=== PATIENT | male | born 1955 | race Caucasian/White ===

== ENCOUNTER → 2017-11-22 05:50 | Outpatient (CLI) | payer BC, SELFPAY ==
--- NOTE | 2017-11-22 05:56 | NM_ITS ---
SPECT MYOCARDIAL PERFUSION SCAN, REST AND STRESS: EXERCISE STRESS: [facility] REVIEW QGS EF AND WALL MOTION EVALUATION: QPS - PERFUSION EVALUATION: HISTORY: Chest pain, SOB, Fatigue, CAD, HTN, DM PROCEDURE: Rest imaging performed after administration of10.79 millicuries Tc MIBI. Dose administered at6:10 a.m., with imaging thereafter. Stress imaging was then performed [id number] minutes 02 seconds of exercise stress. The patient achieved a heart [id number] with projected heart rate of136 . Resting BP158/84 with stress 190/80. At maximum exercise stress,32.2 millicuries Tc MIBI administered at8:00 a.m. with [id number] minutes thereafter. EKG revealed 1.5 mm of horizontal to downsloping depression making this an abnormal EKG stress test FINDINGS: Perfusion Evaluation: The single slice spect images as well as the [facility] bull's-eye data summary were reviewed. Wall Motion and Ejection Fraction Evaluation: Gated SPECT review and analysis used to evaluate these features. There is a 66 % left ventricular ejection fraction. There seems to be good wall motion SPECT images reveal mildly decreased activity in the inferior wall and portion of the lateral wall while the rest images reveal worsening uptake in the inferior lateral wall. Gated images calculated ejection fraction of 66% with normal wall motion IMPRESSION: High risk abnormal stress test with reverse redistribution in the inferior lateral wall associated with normal wall motion and normal ejection fraction
--- NOTE | 2017-11-22 07:50 | CA_ITS ---
PROCEDURE: 2-D M-mode and color Doppler study INDICATIONS FOR THE TEST: Chest pain COPD Heart Murmur Tobacco Smoking Palpitations Fatigue Syncope Edema HypertensionXDiabetes MellitusX Rheumatic Fever SOBXDOE ObesityXHyperlipidemiaX Family History HD Additional History CAD PATIENT INFORMATION HEIGHT: 72 WEIGHT:245 GENDER: Male B/P:158/84 2-D/M-MODE INTERPRETATION: 2-D MEASUREMENTS OBSERVED VALUES IN CMS Right Ventricular Dimension (RVDd) 2.5 Interventricular Septum (Thickness)(IVsd) 1.0 Left Ventricular Internal Dimensions(LVIDd) 5.8 Left Ventricular Posterior Wall (Thickness)(LVPWd) 1.1 Aortic Root 3.4 Aortic Cusp Separation 1.9 Left Atrial Dimensions (LAD) 4.0 2D 1. Left atrium is mildly enlarged, left ventricle is normal size, there is mild concentric left ventricular hypertrophy, visually estimated ejection fraction 55% with no obvious regional wall motion abnormality. 2. The right atrium and right ventricle are mildly enlarged with normal contractility. 3. The aortic valve is minimally thickened and fibrosed. 4. The mitral and tricuspid valve leaflets are minimally thickened. 5. The pulmonic valve is poorly visualized 6. No significant pericardial effusion noted. DOPPLER INTERROGATION: Doppler interrogation of the aortic, mitral and tricuspid valvular presence of mild mitral and tricuspid regurgitation, tricuspid and jet velocity insufficient for calculation of the right ventricular systolic pressure, grade 1 diastolic dysfunction seen without tissue Doppler evidence of raised left atrial pressure. CONCLUSION: 1. Mildly enlarged left atrium, normal left ventricular size, mild concentric left ventricular hypertrophy, visually estimated ejection fraction 55% with no obvious regional wall motion abnormality, grade 1 diastolic dysfunction seen without tissue Doppler evidence of raised left atrial pressure. 2. Mild mitral and tricuspid regurgitation 3. No significant pericardial effusion noted.
--- NOTE | 2017-11-22 09:10 | HMH.ITSHM ---
bisoprolol metformn simvastatin glyberide effient a,lodipine lozartan asa
== END ==
PROVIDERS: PCP Internal Medicine; Visit Provider Internal Medicine Cardiovascular Disease
DX: Z95.5 Presence of coronary angioplasty implant and graft (principal); I25.10 Atherosclerotic heart disease of native coronary artery without angina pectoris; R06.09 Other forms of dyspnea; E78.4 Other hyperlipidemia; E11.9 Type 2 diabetes mellitus without complications; I10 Essential (primary) hypertension
CPT/HCPCS: 78452; 93017; 93306; A9502

== ENCOUNTER 2017-12-07 07:44 | Day surgery (SDC) | payer BC, SELFPAY ==
[2017-12-07] VITALS (14 sets, daily range): BP systolic 135–186; BP diastolic 70–101; PULSE 54–72; RESP 16–18; TEMP 36.7; O2SAT 95–97; BMI 34.7
--- NOTE | 2017-12-07 | IR_ITS ---
CARDIAC CATHETERIZATION DATE OF CATHETERIZATION:12/07/2017 9:12 AM PROCEDURES: 1. Left heart catheterization 2. Left ventriculogram 3. Selective coronary angiogram 4. Drug-eluting stent deployment to the circumflex artery extending into the left main artery 5. Drug-eluting stent deployment to the ostial LAD extending back into the left main artery INDICATION FOR TEST: 1. Angina pectoris class III despite 2 antianginal medications 2. Coronary artery disease Informed consent was obtained prior to the procedure. COMPLICATIONS: None ESTIMATED BLOOD LOSS: Less than 10 ml. TECHNIQUE: One percent lidocaine used to anesthetize the right anterior aspect of the wrist. The right radial artery was accessed via the Seldinger technique. A 6 Polish sheath was placed in the right radial artery. 2.5 mg of verapamil, 800 mcg of nitroglycerin and 5000 U Heparin were given through the arterial sheath. The trap catheter was also used to perform left heart catheterization left ventriculogram and selective coronary angiogram. At the end of the diagnostic angiogram and additional 7000 units of heparin was administered intravenously giving an ACT of 307 seconds. An Cuffed and Wanted left guide catheter was used intubate the left main artery and a choice PT wire was placed in the circumflex artery. A 3.5 x 18 mm resolute [place] stent was deployed at 20 gricel reducing the ostial stenosis to 0%. The choice PT wire was gently pulled back and placed into the LAD where a 3 mm x 12 mm balloon was used to open the struts going into the LAD. Following this a 4 mm x 18 mm resolute Alvin stent was placed in the proximal left main artery extending into the ostial proximal LAD and deployed at 20 gricel. The proximal LAD had a dissection at the edge of the stent therefore a 3.5 x 12 mm resolute Alvin stent was placed distal to the first LAD stent and deployed at 20 gricel. The balloon was brought back and mesh to 26 gricel. Excellent angiographic results were obtained with BROWN-3 flow down the LAD and circumflex artery before and after the procedure. A fresh BMW wire was in placed into the circumflex artery where 3.5 x 6 mm balloon was used to post dilate the ostium at 20 gricel. After achieving an angiographic results the apparatus was removed the sheath was removed good hemostasis was achieved using TR banding patient was transferred to the postop holding area in stable condition. Patient artery taken his Effient the morning of the procedure. ANGIOGRAPHIC RESULTS: 1. The left main artery has a distal hazy 30% stenosis 2. The left anterior descending artery has an ostial 20-30% hazy stenosis with mild 10% mid vessel stenoses 3. The circumflex artery is a dominant vessel and has an ostial concentric 80-90% stenosis. The stent in between the first and second obtuse marginal artery is widely patent with excellent proximal and distal transitioning. 4. The right coronary artery is nondominant yet still large and normal 5. The BLEVINS ventriculogram reveals normal ejection fraction 65% 6. The left ventricular end-diastolic pressure 15 mmHg IMPRESSION: 1. Severe ostial dominant circumflex artery disease which extended back into the left main artery 2. Successful reconstruction of the distal left main artery 1 stent extending from the left main artery into the circumflex artery with an additional stent extending from the proximal left main into the proximal LAD. 3. Normal ejection fraction 4. Mildly elevated LVEDP PLAN: 1. Effient 10 mg a day plus aspirin 81 mg a day for least one year 2. LDL less than 55 3. Cardiac rehabilitation 4. Risk factor modification 5. Avoidance of tobacco products
[2017-12-07 08:22] LABS: Eosinophils % 0.4 % (0.1-12.0); Hematocrit 40.3 % (42.0-52.0); Hemoglobin 13.4 g/dL (14.1-18.0); Lymphocytes # 1.7 K/mm3 (0.7-4.5); Lymphocytes % 27.2 K/mm3 (10-50); Mean Corpuscular HGB Conc 33.2 g/dL (31.8-35.4); Mean Corpuscular Hemoglobin 30.5 pg (27.0-31.2); Mean Platelet Volume 7.8 fl (7.4-10.4); Monocytes # 0.6 K/mm3 (0.1-1.0); Neutrophils # 3.9 K/mm3 (1.8-7.8); Neutrophils % 63.4 % (37.0-80.0); Platelet Count 178 K/mm3 (142-424); Red Blood Count 4.38 M/mm3 (4.60-6.20); Red Cell Distribution Width 13.4 % (11.5-17.5); White Blood Count 6.2 K/mm3 (4.8-10.8)
[2017-12-07 08:28] LABS: Anion Gap 11.2 mEq/L (5-15); Blood Urea Nitrogen 20 mg/dL (7-18); Carbon Dioxide 29 mmol/L (21.0-32.0); Chloride 104 mmol/L (98-107); Creatinine Clearance Estimated 107 mL/min (0-300); Creatinine,Serum 1.21 mg/dL (0.70-1.30); Estimated Glomerular Filt Rate 61 ml/min (>60); GFR (African American) 74 ML/MIN (>60); Glucose 183 mg/dL (74-106); Potassium 4.2 mmoL/L (3.5-5.1); Sodium 140 mmol/L (136-145)
[2017-12-07 13:45] LABS: CATHL Activated Clotting Time 309 SEC (74-125)
[2017-12-07 13:45] LABS: CATHL Activated Clotting Time 258 SEC (74-125)
== END 2017-12-07 14:17 | disposition home or self-care (01) ==
LOC: CATHLAB 07:49
PROVIDERS: PCP Family Medicine; Visit Provider Internal Medicine
DX: I25.110 Atherosclerotic heart disease of native coronary artery with unstable angina pectoris (principal); Z95.5 Presence of coronary angioplasty implant and graft; I10 Essential (primary) hypertension; E11.9 Type 2 diabetes mellitus without complications; R94.39 Abnormal result of other cardiovascular function study; E78.5 Hyperlipidemia, unspecified
CPT/HCPCS: 80048; 85025; 85347; 92928; 93458; 99152; 99153; C1725; C1760; C1769; C1876; C9600; J1644; Q9967

== ENCOUNTER → 2017-12-13 10:46 | Outpatient (CLI) | payer BC, SELFPAY ==
[2017-12-13 11:20] LABS: Anion Gap 12.8 mEq/L (5-15); Blood Urea Nitrogen 20 mg/dL (7-18); Carbon Dioxide 28 mmol/L (21.0-32.0); Chloride 105 mmol/L (98-107); Creatinine,Serum 1.22 mg/dL (0.70-1.30); Estimated Glomerular Filt Rate 61 ml/min (>60); GFR (African American) 73 ML/MIN (>60); Glucose 200 mg/dL (74-106); Potassium 4.8 mmoL/L (3.5-5.1); Sodium 141 mmol/L (136-145)
== END ==
PROVIDERS: PCP Family Medicine; Visit Provider Internal Medicine Cardiovascular Disease
DX: I25.10 Atherosclerotic heart disease of native coronary artery without angina pectoris (principal); I10 Essential (primary) hypertension
CPT/HCPCS: 36415; 80048; 83880

== ENCOUNTER 2017-12-20 07:55 | Outpatient (RCR) | payer BC, SELFPAY | END 2018-02-21 15:01 | disposition home or self-care (01) | LOC: PT 07:55 | PROVIDERS: PCP Family Medicine; Visit Provider Internal Medicine | DX: Z95.5 Presence of coronary angioplasty implant and graft (principal) | CPT/HCPCS: 93798 ==

== ENCOUNTER → 2018-02-07 06:39 | Outpatient (CLI) | payer BC, SELFPAY ==
--- NOTE | 2018-02-07 06:41 | NM_ITS ---
History and Indications: Coronary artery disease, hypertension, diabetes, hyperlipidemia, family history, chest pain, shortness of breath and fatigue. Procedure: Patient received a 0.4 mg of Lexiscan, resting heart rate was 56 bpm, resting blood pressure 132/70, with Lexiscan maximum heart rate achieved was 76 bpm which is less than 85% of the maximum predicted heart rate and a blood pressure was 138/83. With Lexiscan patient complained of chest discomfort. Electrocardiogram: Resting electrocardiogram showed sinus bradycardia, with Lexiscan there is less than 1.[address] segment depression noted from the baseline EKG. The EKG portion of the Lexiscan Myoview is nondiagnostic. Cardiac stress and resting SPECT images: Cardiac stress and rest SPECT images were obtained using technetium 99 Myoview 30.9 mCi at stress 10.5 at rest, gated SPECT further analysis of segmental wall motion and calculation of the ejection fraction also done. Cardiac stress and rest SPECT images show decreased activity in the inferior wall, which improves on the resting images suggestive of reversible computer derived ejection fraction is 61% with no obvious regional wall motion abnormality, right ventricle is normal size and contractility. Conclusion: 1. The EKG portion of the Lexiscan Myoview is nondiagnostic. 2. Scintigraphic evidence of mild reversible ischemia involving the inferior wall, either derived ejection fraction is 61% with no obvious regional wall motion abnormality, right ventricle is normal size and contractility. 3. Abnormal Lexiscan Myoview study.
--- NOTE | 2018-02-07 09:42 | HMH.ITSHM ---
BISOPRELOL METFORMIN ASA ANLODIPINE SIMCASTATIN GLBERIDE LOZARTIN PANTOPRAZOLE
== END ==
PROVIDERS: PCP Family Medicine; Visit Provider Internal Medicine
DX: R06.00 Dyspnea, unspecified (principal); I25.10 Atherosclerotic heart disease of native coronary artery without angina pectoris; I10 Essential (primary) hypertension; E78.4 Other hyperlipidemia; E11.9 Type 2 diabetes mellitus without complications; I20.9 Angina pectoris, unspecified; G47.33 Obstructive sleep apnea (adult) (pediatric); Z95.5 Presence of coronary angioplasty implant and graft
CPT/HCPCS: 78452; 93017; A9502; J2785

== ENCOUNTER → 2019-11-06 07:02 | Outpatient (CLI) | payer BC, SELFPAY ==
--- NOTE | 2019-11-06 07:02 | NM_ITS ---
APPROVED REPORT Exam: Nuclear Stress Test Indication: chest pain..short of breath..fatique Patient Location: Outpatient Stress Tech: Lili Bailey LYNDSEY Tech:DARCY Chen RT(R)(N) Ht: 6 ft 0 in Wt: 230 lbs Bra Size: implants HR: 61 bpm BP: 126/74 mmHg BSA: 2.26 m2 History: chest pain..short of breath..fatique Procedure: Patient received a 0.4 mg of intravenous Lexiscan, resting heart rate 61 bpm, resting blood pressure 126/74 mmHg, with Lexiscan maximum heart rate achived was 75 bpm which is Less than 85 % of the maximum predicted heart rate and blood pressure was 128/72 mmHg. With Lexiscan, patient denied any complaint of chest pain. Electrocardiogram Resting electrocardiogram showed sinus rhythm, with Lexiscan there is less than 1.[address] segment depression noted from the baseline EKG. The EKG portion of the Lexiscan Myoview is nondiagnostic. Cardiac Stress and Resting SPECT Images: Cardiac Stress and Resting SPECT images were obtained using technetium 99m Myoview 32.2 mCi stress and 10.72 mCi at rest. Gated SPECT for analysis of segmental wall motion and calculation of the ejection fraction also done. Cardiac stress and resting SPECT images show decreased tracer activity in the inferior wall which improves on the resting images suggestive of reversible ischemia, computer derived ejection fraction is 51% with mild inferior wall hypokinesis. Right ventricle is mildly enlarged with normal contractility. Conclusion: 1. The EKG portion of the Lexiscan Myoview is nondiagnostic. 2. Scintigraphic evidence of mild reversible ischemia involving the inferior wall, computer derived ejection fraction 51% with segmental wall motion abnormality described above, right ventricle is mildly enlarged with normal contractility. 3. Abnormal Lexiscan Myoview study. Electronically signed by : Bladimir Leslie, 11/06/2019 15:39:25
--- NOTE | 2019-11-06 09:43 | CA_ITS ---
APPROVED REPORT Exam: Pharmacologic Technologist: Lili Bailey, Ht: 6 ft 0 in Wt: 230 lbs BSA: 2.26 m2 HR: 61 bpm BP: 126/74 mmHg Rhythm: RBBB Medical History Medical History: Diabetes, Hyperlipidemia, HTN Medications: Amlodipine,,,,, Aspirin,,,,, Metformin,,,,, Losartan,,,,, Hydrochlorothiazide,,,,, Pantoprazole,,,,, Nitro,,,,, Prasugrel,,,,, BisOPROL,,,,, Simvasatin,,,,, Allergies: PNC, Shellfish Cardiac Risk Factors: FHX of CAD, Hyperlipidemia, HTN, Diabetes (non-insulin) Stress Test Details Test: LEXISCAN HR Resting HR: 59 bpm Max Heart Rate (APMHR): 158 bpm Max HR Achieved: 86 bpm Target HR (85% APMHR): 134 bpm % of APMHR: 54 Recovery HR: 75 bpm BP Resting BP: 126/74 mmHg Max BP: 145/68 mmHg Recovery BP: 124.0/74.0 mmHg ECG Clinical Exercise duration: 05:00 min Highest Stage Achieved: Exercise capacity: 1.0 METs Stress ECG Conclusion Nausea, malaise, headache, no CP / no arrhythmias / no significant ST-T changes / unremarkable lexiscan stress / MyoView images reported seperately Electronically signed by : Bladimir Leslie, 11/06/2019 15:36:10
--- NOTE | 2019-11-06 11:10 | HMH.ITSHM ---
Current Home Medications as stated by this patient Dougie Caballero or textile designs sales representative. [] simvastatatin pantoprazole metformin losartan isosorbide bisoprolol asp amlodipine
== END ==
PROVIDERS: PCP Family Medicine; Visit Provider Urology
DX: I20.9 Angina pectoris, unspecified (principal); I50.30 Unspecified diastolic (congestive) heart failure; E78.5 Hyperlipidemia, unspecified; I10 Essential (primary) hypertension; Z95.5 Presence of coronary angioplasty implant and graft
CPT/HCPCS: 78452; 93017; A9502; J2785

== ENCOUNTER → 2020-02-18 14:49 | Outpatient (POV) | payer BC, SELFPAY | PROVIDERS: PCP Family Medicine | DX: Z00.00 Encounter for general adult medical examination without abnormal findings (principal) ==

== ENCOUNTER → 2020-03-16 10:22 | Outpatient (CLI) | payer BC, SELFPAY ==
[2020-03-16 11:26] LABS: Coronavirus 19 IgG Antibody Negative (Negative); Coronavirus 19 IgM Antibody Negative (Negative)
== END ==
DX: Z01.84 Encounter for antibody response examination (principal)
CPT/HCPCS: 36415; 86328

== ENCOUNTER 2020-03-17 11:35 | Day surgery (SDC) | payer BC, SELFPAY ==
[2020-03-15 13:55] VITALS: BMI 31.1
[2020-03-17 12:08] VITALS: BP 130/62; PULSE 62; RESP 18; TEMP 36.7; O2SAT 97
[2020-03-17 12:27] LABS: POC Glucose,Bedside 110 (70-110)
[2020-03-17 16:10] VITALS: BP 141/72; PULSE 59; RESP 18; TEMP 36.5; O2SAT 97
== END 2020-03-17 16:30 | disposition home or self-care (01) ==
LOC: OR 11:36
PROVIDERS: PCP Family Medicine
PROC: (CPT 67800; principal; 2020-03-17 13:00)
DX: H00.14 Chalazion left upper eyelid (principal); I10 Essential (primary) hypertension; E78.5 Hyperlipidemia, unspecified; E11.9 Type 2 diabetes mellitus without complications; Z95.818 Presence of other cardiac implants and grafts; Z79.82 Long term (current) use of aspirin; Z79.899 Other long term (current) drug therapy; Z82.49 Family history of ischemic heart disease and other diseases of the circulatory system; Z83.3 Family history of diabetes mellitus; Z88.0 Allergy status to penicillin; Z91.013 Allergy to seafood
CPT/HCPCS: 67800; 82962

== ENCOUNTER → 2020-05-06 10:03 | Outpatient (CLI) | payer BC, SELFPAY ==
--- NOTE | 2020-05-06 10:05 | CA_ITS ---
APPROVED REPORT EXAM: Comprehensive 2D, Doppler, and color-flow Echocardiogram Preparer Samples And Repairs: Gita Taylor RDCS Ht: 6 ft 0 in Wt: 117lbs BSA: 1.70 BP: 125/70 mmHg Indications: CAD,SOA,DM,HTN,HLP 2D Dimensions LVOT 1.91 cm (M/F) 1.5-2.5 M-Mode Dimensions RVDd 2.42 cm (0.9-2.6) LVDd 4.79 cm (3.5-5.7) LVDs 3.69 cm (3.5-5.7) IVSd 1.40 cm (0.6-1.1) PWd 1.06 cm (0.6-1.1) EF (Teich) 46.00% FS 23.00% EDV (Teich) 107.00 mL ESV (Teich) 57.80 mL LV Diastology E/A Ratio 0.72 Mitral Valve MV A Velocity 74.00 (40-130 cm/s) Left Ventricle Left atrium is mildly enlarged, left ventricle is normal size, mild concentric left ventricular hypertrophy, visually estimated ejection fraction 55% with no regional wall motion abnormality, grade 1 diastolic dysfunction seen without tissue Doppler evidence of raise left atrial pressure. Right Ventricle Right atrium and right ventricular normal size and contractility. Aortic Valve Aortic valve is thickened and calcified leaflet chordae display good mobility, there is no aortic stenosis or aortic insufficiency. Mitral Valve Mitral valve is grossly normal, there is mild mitral regurgitation. Tricuspid Valve Tricuspid valve grossly normal, there is mild tricuspid regurgitation, tricuspid regurgitation jet velocity is inadequate for calculation of the right ventricular systolic pressure. Pulmonic Valve Pulmonic valve is poorly visualized. Great Vessels Aortic root is normal size. Pericardium No significant pericardial effusion noted. Conclusion 1. Mildly enlarged left atrium, normal left ventricular size, mild concentric left ventricular hypertrophy, visually estimated ejection fraction 55% with no regional wall motion abnormality, grade 1 diastolic dysfunction seen without tissue Doppler evidence of raise left atrial pressure. 2. Mild mitral and tricuspid regurgitation. 3. No significant pericardial effusion noted. Electronically signed by : Bladimir Leslie, 05/06/2020 15:44:02
== END ==
PROVIDERS: PCP Family Medicine; Visit Provider Physician Assistant
DX: I20.9 Angina pectoris, unspecified (principal); R06.02 Shortness of breath; E11.9 Type 2 diabetes mellitus without complications; E78.49 Other hyperlipidemia; I10 Essential (primary) hypertension; Z95.5 Presence of coronary angioplasty implant and graft; Z79.84 Long term (current) use of oral hypoglycemic drugs
CPT/HCPCS: 93306

== ENCOUNTER 2020-06-02 08:24 | Day surgery (SDC) | payer BC, SELFPAY ==
[2020-06-02] VITALS (11 sets, daily range): BP systolic 105–151; BP diastolic 63–87; PULSE 45–59; RESP 16–20; O2SAT 93–98; BMI 30.9
--- NOTE | 2020-06-02 | IR_ITS ---
APPROVED REPORT Patient Location: Outpatient Plate Worker Helper: DARCY Cee RT (R) PROCEDURES Left heart catheterization Left ventriculogram Selective coronary angiography INDICATION Known coronary artery disease with multivessel stenting, Classic intolerable angina pectoris Informed consent was obtained prior to the procedure. COMPLICATIONS NONE Estimated Blood Loss: LESS THAN 10 ML TECHNIQUE One percent lidocaine used to anesthetize the right anterior aspect of the wrist. The right radial artery was accessed via the Seldinger technique. A 6 Filipino sheath was placed in the right radial artery. 2.5 mg of verapamil, 800 mcg of nitroglycerin, 1mg Lidocaine and 5000 U Heparin were given through the arterial sheath. The trap catheter was also used to perform left heart catheterization, left ventriculogram and selective coronary angiogram. At the end of the procedure the sheath was removed good hemostasis was achieved using Traclet band, patient was transferred to the postop holding area in stable condition. ANGIOGRAPHIC RESULTS The left main artery Has a stent in the proximal segment which extends into the LAD. The stent is widely patent free of in-stent restenosis with excellent proximal distal transitioning The left anterior descending artery Has a stent which originates off the left main artery and extends into the proximal segment. The stent is widely patent with excellent stent apposition free of in-stent restenosis with excellent distal transitioning. The remaining LAD has mid vessel 30% stenosis along a tortuous bend The circumflex artery Is a codominant vessel and has a stent originating off the left main artery which extends into the mid vessel. The stent is widely patent free of in-stent restenosis with excellent transitioning. The stent also bifurcates into the first obtuse marginal artery which is widely patent with minimal 30% in-stent restenosis. The right coronary artery The right coronary is a codominant vessel and has mild atheromatous luminal irregularities nothing greater than 10%. This is accompanied by BROWN II flow The BLEVINS ventriculogram reveals Normal 65% The left ventricular end-diastolic pressure 10 mmHg IMPRESSION Widely patent stents as described above Slow flow down the codominant right coronary artery consistent with moderate endothelial dysfunction Normal ejection fraction Normal left ventricular end-diastolic pressure PLAN 1. Medical management with continued risk factor modification 2. Treatment of endothelial dysfunction as tolerated Electronically signed by : Lyndon Swanson, 06/02/2020 13:30:33
[2020-06-02 09:13] LABS: Eosinophils % 0.1 % (0.1-12.0); Hematocrit 37.1 % (42.0-52.0); Lymphocytes # 1.5 K/mm3 (0.7-4.5); Lymphocytes % 24.8 % (10-50); Mean Corpuscular Hemoglobin 32.8 pg (27.0-31.2); Mean Corpuscular Volume 93.5 fl (80-94); Mean Platelet Volume 7.7 fl (7.4-10.4); Monocytes # 0.6 K/mm3 (0.1-1.0); Neutrophils % 66.2 % (37.0-80.0); Platelet Count 175 K/mm3 (142-424); Red Blood Count 3.97 M/mm3 (4.60-6.20); Red Cell Distribution Width 13.4 % (11.5-17.5); White Blood Count 6.1 K/mm3 (4.8-10.8)
[2020-06-02 09:17] LABS: Chloride 104 mmol/L (98-107); Sodium 140 mmol/L (136-145)
[2020-06-02 09:18] LABS: Potassium 4.3 mmoL/L (3.5-5.1)
[2020-06-02 09:20] LABS: Blood Urea Nitrogen 30 mg/dl (9-20); Creatinine Clearance Estimated 79 mL/min (50-200); Estimated Glomerular Filt Rate 51 ml/min (>60); GFR (African American) 62 ML/MIN (>60)
[2020-06-02 09:21] LABS: Anion Gap 15.3 mEq/L (5-15); Calcium 9.5 mg/dl (8.4-10.2); Carbon Dioxide 25 mmol/L (22.0-30.0); Glucose 147 mg/dl (74-100)
[2020-06-02 09:41] LABS: Coronavirus 19 IgG Antibody Negative (Negative); Coronavirus 19 IgM Antibody Negative (Negative)
== END 2020-06-02 13:59 | disposition home or self-care (01) ==
LOC: CATHLAB 08:24
PROVIDERS: PCP Family Medicine; Visit Provider Internal Medicine
DX: I25.118 Atherosclerotic heart disease of native coronary artery with other forms of angina pectoris (principal); Z95.5 Presence of coronary angioplasty implant and graft; E11.9 Type 2 diabetes mellitus without complications; I11.0 Hypertensive heart disease with heart failure; I50.30 Unspecified diastolic (congestive) heart failure; Z79.84 Long term (current) use of oral hypoglycemic drugs; Z79.899 Other long term (current) drug therapy
CPT/HCPCS: 80048; 85025; 86328; 93458; 99152; C1725; C1769; J1644; Q9967

== ENCOUNTER → 2021-03-14 11:39 | Outpatient (CLI) | payer BC, SELFPAY ==
--- NOTE | 2021-03-14 11:39 | NM_ITS ---
APPROVED REPORT Exam: Nuclear Stress Test Indication: Chest pain, SOB, Palpitations, Fatigue, CAD, HTN, DM, High cholesterol, Family history Patient Location: Outpatient Stress Tech: Claire De La Vega [place] Tech:Malathi Benjamin, ARRT, RT (R)(N) Ht: 6 ft 0 in Wt: 230 lbs HR: 62 bpm BP: 124/60 mmHg BSA: 2.26 m2 History: Chest pain, SOB, Palpitations, Fatigue, CAD, HTN, DM, High cholesterol, Family history Procedure: Patient received a 0.4 mg of intravenous Lexiscan, resting heart rate 62 bpm, resting blood pressure 124/60 mmHg, with Lexiscan maximum heart rate achived was 77 bpm which is 85 % of the maximum predicted heart rate and blood pressure was 131/68 mmHg. With Lexiscan, patient denied any complaint of chest pain. Electrocardiogram Resting electrocardiogram shows sinus rhythm, with Lexiscan there is less than 1.[address] segment depression noted from the baseline EKG. The EKG portion of the Lexiscan is nondiagnostic. Cardiac Stress and Resting SPECT Images: Cardiac Stress and Resting SPECT images were obtained using technetium 99m Myoview 32.0 mCi stress and 10.11 mCi at rest. Gated SPECT for analysis of segmental wall motion and calculation of the ejection fraction also done. Prone images were also obtained. Cardiac stress and resting SPECT images show uniform myocardial activity without segmental perfusion abnormality, computer derived ejection fraction is 55% with no regional wall motion abnormality, right ventricle is normal size and contractility. Conclusion: 1. The EKG portion of the Lexiscan is nondiagnostic. 2. No scintigraphic evidence of reversible ischemia seen, computer derived ejection fraction is 55% with no regional wall motion abnormality, right ventricle is normal size and contractility. 3. Normal Lexiscan Myoview study. Electronically signed by : Bladimir Leslie, 03/14/2021 19:05:06
--- NOTE | 2021-03-14 13:35 | HMH.ITSHM ---
Current Home Medications as stated by this patient Dougie Caballero or insurance account representative. []AMLODIPINE BISOPROLOL ISOSORBIDE LOSARTAN METFORMIN RANBLAZINE ASA PRASUGREL SIMVASTATIN PANTOPRAZOLE
--- NOTE | 2021-03-14 13:59 | CA_ITS ---
APPROVED REPORT Exam: Pharmacologic Technologist: Claire De La Vega, Ht: 6 ft 0 in Wt: 231 lbs BSA: 2.27 m2 HR: 62 bpm BP: 124/68 mmHg Medical History Medications: Amlodipine,,,,, Isosorbide,,,,, Simvastatin,,,,, Metformin,,,,, Losartan,,,,, Pantoprazole,,,,, HCTZ,,,,, Glipizide,,,,, BisOPROLOL,,,,, Prasugrel,,,,, Asapirin,,,,, Nirtoglycerin,,,,, Stress Test Details Test: LEXISCAN HR Resting HR: 57 bpm Max Heart Rate (APMHR): 156.530345 bpm Max HR Achieved: 79 bpm Target HR (85% APMHR): 132.974177 bpm % of APMHR: 50.64 Recovery HR: 67 bpm BP Resting BP: 124/68 mmHg Max BP: 136/64 mmHg Recovery BP: 136.0/64.0 mmHg ECG Resting ECG: NSR Clinical Reason for Termination: Completed Protocol Exercise duration: 04:01 min Highest Stage Achieved: Exercise capacity: 1.0 METs Stress ECG Conclusion Symptoms: None Arrhythmias/Ectopy: None ST-T Changes: <1.5mm ST Segment Changes Conclusion: Non-Diagnostic Electronically signed by : Bladimir Leslie, 03/14/2021 18:44:55
== END ==
PROVIDERS: PCP Family Medicine; Visit Provider Nurse Practitioner Family
DX: R06.00 Dyspnea, unspecified (principal); R07.9 Chest pain, unspecified; I25.10 Atherosclerotic heart disease of native coronary artery without angina pectoris; E11.9 Type 2 diabetes mellitus without complications; E78.5 Hyperlipidemia, unspecified; I10 Essential (primary) hypertension; Z95.5 Presence of coronary angioplasty implant and graft; Z79.84 Long term (current) use of oral hypoglycemic drugs
CPT/HCPCS: 78452; 93017; A9502; J2785

== ENCOUNTER → 2021-05-04 13:54 | Outpatient (POV) | payer BC, SELFPAY | DX: Z00.00 Encounter for general adult medical examination without abnormal findings (principal) ==

== ENCOUNTER 2021-05-18 11:42 | Day surgery (SDC) | payer BC, SELFPAY ==
[2021-05-16 13:50] VITALS: BMI 31.1
[2021-05-18] VITALS (18 sets, daily range): BP systolic 105–139; BP diastolic 53–75; PULSE 55–60; RESP 16–18; TEMP 36.3–36.4; O2SAT 95–100
[2021-05-18 11:14] LABS: Coronavirus 19, PCR Not Detected (NotDetected); Influenza A, PCR Not Detected (NotDetected); Influenza B, PCR Not Detected (NotDetected)
[2021-05-18 12:10] LABS: POC Glucose,Bedside 96 (70-110)
== END 2021-05-18 15:25 | disposition home or self-care (01) ==
LOC: OR 11:46
PROVIDERS: PCP Family Medicine
PROC: (CPT 11106; principal; 2021-05-18 13:00)
DX: L72.0 Epidermal cyst (principal); Z88.0 Allergy status to penicillin; Z88.8 Allergy status to other drugs, medicaments and biological substances; Z79.82 Long term (current) use of aspirin; Z79.899 Other long term (current) drug therapy; E11.9 Type 2 diabetes mellitus without complications; M19.90 Unspecified osteoarthritis, unspecified site
CPT/HCPCS: 11106; 82962; U0003

== ENCOUNTER → 2021-08-19 08:08 | Outpatient (CLI) | payer BC, SELFPAY ==
[2021-08-19 09:40] LABS: Basophils % 0.2 % (0.1-2.0); Eosinophils % 0.2 % (0.1-12.0); Hematocrit 37.1 % (42.0-52.0); Lymphocytes # 1.4 K/mm3 (0.7-4.5); Lymphocytes % 27.8 % (10-50); Mean Corpuscular HGB Conc 35.2 g/dL (31.8-35.4); Mean Corpuscular Hemoglobin 32.1 pg (27.0-31.2); Mean Corpuscular Volume 91.3 fl (80-94); Mean Platelet Volume 8.4 fl (7.4-10.4); Monocytes # 0.4 K/mm3 (0.1-1.0); Monocytes % 8.6 % (1.7-9.3); Neutrophils # 3.1 K/mm3 (1.8-7.8); Neutrophils % 63.2 % (37.0-80.0); Platelet Count 195 K/mm3 (142-424); Red Blood Count 4.06 M/mm3 (4.60-6.20); Red Cell Distribution Width 13.8 % (11.5-17.5)
[2021-08-19 10:23] LABS: Hemoglobin A1C 6.8 % (4.0-6.0)
[2021-08-19 10:39] LABS: Alanine Aminotransferase 24 U/L (12-78); Albumin Level 4.6 g/dl (3.5-5.0); Albumin/Globulin Ratio 1.9 (1.1-1.8); Alkaline Phosphatase 65 U/L (38-126); Anion Gap 14.4 mEq/L (5-15); Aspartate Amino Transferase 27 U/L (17-59); Bilirubin,Total 0.4 mg/dl (0.2-1.3); Blood Urea Nitrogen 21 mg/dl (9-20); Calcium 9.1 mg/dl (8.4-10.2); Carbon Dioxide 27 mmol/L (22.0-30.0); Chloride 105 mmol/L (98-107); Chol/HDL Ratio 4.9 (1-3.5); Cholesterol 141 mg/dl (140-200); Estimated Glomerular Filt Rate 56 ml/min (>60); GFR (African American) 67 ML/MIN (>60); Globulin 2.4 g/dL (1.3-3.2); Glucose 150 mg/dl (74-100); HDL Cholesterol 29 mg/dl (40-60); Potassium 4.4 mmoL/L (3.5-5.1); Sodium 142 mmol/L (136-145); Triglycerides 166 mg/dl (30-150); VLDL Cholesterol 33 mg/dL (0-40)
[2021-08-19 10:50] LABS: Direct LDL Cholesterol 85.67 mg/dL (100-129)
[2021-08-19 10:57] LABS: 25-OH Vitamin D, Total 48.9 ng/mL (30-100)
[2021-08-19 11:09] LABS: Thyroid Stimulating Hormone 2.23 uIU/mL (0.465-4.68)
[2021-08-19 11:45] LABS: Vitamin B12 606 pg/mL (239-931)
== END ==
PROVIDERS: Visit Provider Family Medicine
DX: E11.9 Type 2 diabetes mellitus without complications (principal); I10 Essential (primary) hypertension; E78.5 Hyperlipidemia, unspecified; R53.83 Other fatigue; E66.3 Overweight; Z68.32 Body mass index [BMI] 32.0-32.9, adult; Z79.84 Long term (current) use of oral hypoglycemic drugs
CPT/HCPCS: 36415; 80053; 80061; 82306; 82607; 82746; 83036; 84443; 85025

== ENCOUNTER → 2022-02-07 07:01 | Outpatient (CLI) | payer MEDICARE, OTHER, SELFPAY ==
[2022-02-07 08:14] LABS: Alanine Aminotransferase 19 U/L (12-78); Albumin Level 4.4 g/dl (3.5-5.0); Albumin/Globulin Ratio 1.8 (1.1-1.8); Alkaline Phosphatase 67 U/L (38-126); Anion Gap 14.5 mEq/L (5-15); Aspartate Amino Transferase 20 U/L (17-59); Bilirubin,Total 0.2 mg/dl (0.2-1.3); Blood Urea Nitrogen 28 mg/dl (9-20); Calcium 9.1 mg/dl (8.4-10.2); Carbon Dioxide 23 mmol/L (22.0-30.0); Chloride 107 mmol/L (98-107); Chol/HDL Ratio 3.8 (1-3.5); Cholesterol 137 mg/dl (140-200); Estimated Glomerular Filt Rate 61 ml/min (>60); GFR (African American) 74 ML/MIN (>60); Globulin 2.4 g/dL (1.3-3.2); Glucose 158 mg/dl (74-100); HDL Cholesterol 36 mg/dl (40-60); Potassium 4.5 mmoL/L (3.5-5.1); Sodium 140 mmol/L (136-145); Total Protein,Serum 6.8 g/dl (6.3-8.2); Triglycerides 113 mg/dl (30-150); VLDL Cholesterol 23 mg/dL (0-40)
[2022-02-07 08:25] LABS: Direct LDL Cholesterol 69.59 mg/dL (100-129)
[2022-02-07 08:42] LABS: Prostate Specific Ag Screen 1.6 ng/ml (0.0-4.0)
== END ==
PROVIDERS: Visit Provider Family Medicine
DX: E11.9 Type 2 diabetes mellitus without complications (principal); I25.10 Atherosclerotic heart disease of native coronary artery without angina pectoris; I10 Essential (primary) hypertension; E78.5 Hyperlipidemia, unspecified; Z12.5 Encounter for screening for malignant neoplasm of prostate; Z79.84 Long term (current) use of oral hypoglycemic drugs
CPT/HCPCS: 36415; 80053; 80061; 83036; G0103

== ENCOUNTER → 2022-08-11 08:08 | Outpatient (CLI) | payer MEDICARE, OTHER, SELFPAY ==
[2022-08-11 09:41] LABS: Alanine Aminotransferase 26 U/L (12-78); Albumin Level 4.9 g/dl (3.5-5.0); Alkaline Phosphatase 92 U/L (38-126); Anion Gap 17.3 mEq/L (5-15); Aspartate Amino Transferase 23 U/L (17-59); Bilirubin,Total 0.5 mg/dl (0.2-1.3); Blood Urea Nitrogen 34 mg/dl (9-20); Calcium 9.3 mg/dl (8.4-10.2); Carbon Dioxide 28 mmol/L (22.0-30.0); Chloride 99 mmol/L (98-107); Chol/HDL Ratio 4.7 (1-3.5); Cholesterol 145 mg/dl (140-200); Estimated Glomerular Filt Rate 47 ml/min (>60); GFR (African American) 57 ML/MIN (>60); Globulin 2.4 g/dL (1.3-3.2); Glucose 130 mg/dl (74-100); HDL Cholesterol 31 mg/dl (40-60); Potassium 4.3 mmoL/L (3.5-5.1); Sodium 140 mmol/L (136-145); Total Protein,Serum 7.3 g/dl (6.3-8.2); Triglycerides 215 mg/dl (30-150); VLDL Cholesterol 43 mg/dL (0-40)
[2022-08-11 09:52] LABS: Direct LDL Cholesterol 77.95 mg/dL (100-129)
== END ==
PROVIDERS: PCP Family Medicine; Visit Provider Family Medicine
DX: I10 Essential (primary) hypertension (principal); E78.5 Hyperlipidemia, unspecified; E11.9 Type 2 diabetes mellitus without complications; Z79.84 Long term (current) use of oral hypoglycemic drugs
CPT/HCPCS: 36415; 80053; 80061; 83036

== ENCOUNTER → 2023-03-07 07:20 | Outpatient (CLI) | payer MEDICARE, OTHER, SELFPAY ==
[2023-03-07 08:25] LABS: Chloride 106 mmol/L (98-107); Potassium 5.2 mmoL/L (3.5-5.1); Sodium 142 mmol/L (136-145)
[2023-03-07 08:28] LABS: Alanine Aminotransferase 31 U/L (12-78); Albumin Level 4.4 g/dl (3.5-5.0); Albumin/Globulin Ratio 1.8 (1.1-1.8); Alkaline Phosphatase 62 U/L (38-126); Anion Gap 15.2 mEq/L (5-15); Aspartate Amino Transferase 24 U/L (17-59); Bilirubin,Total 0.4 mg/dl (0.2-1.3); Blood Urea Nitrogen 24 mg/dl (9-20); Carbon Dioxide 26 mmol/L (22.0-30.0); Cholesterol 115 mg/dl (140-200); Estimated Glomerular Filt Rate 55 ml/min (>60); GFR (African American) 67 ML/MIN (>60); Globulin 2.4 g/dL (1.3-3.2); Total Protein,Serum 6.8 g/dl (6.3-8.2); Triglycerides 104 mg/dl (30-150); VLDL Cholesterol 21 mg/dL (0-40)
[2023-03-07 08:29] LABS: Calcium 8.8 mg/dl (8.4-10.2); Chol/HDL Ratio 3.4 (1-3.5); Glucose 122 mg/dl (74-100); HDL Cholesterol 34 mg/dl (40-60)
[2023-03-07 09:04] LABS: Direct LDL Cholesterol 66.31 mg/dL (100-129)
[2023-03-07 09:29] LABS: Prostate Specific Ag Screen 2.1 ng/ml (0.0-4.0)
[2023-03-07 11:21] LABS: Hemoglobin A1C 6.7 % (4.0-6.0)
== END ==
PROVIDERS: PCP Family Medicine; Visit Provider Family Medicine
DX: E11.9 Type 2 diabetes mellitus without complications (principal); E78.5 Hyperlipidemia, unspecified; I10 Essential (primary) hypertension; Z79.899 Other long term (current) drug therapy; Z12.5 Encounter for screening for malignant neoplasm of prostate
CPT/HCPCS: 36415; 80053; 80061; 83036; G0103

== ENCOUNTER → 2023-04-05 06:28 | Outpatient (CLI) | payer MEDICARE, OTHER, SELFPAY ==
--- NOTE | 2023-04-05 06:35 | NM_ITS ---
APPROVED REPORT Exam: Nuclear Stress Test Indication: chest pain..soa..fatigue Patient Location: Outpatient Stress Tech: Claire De La Vega [place] Tech:DARCY Chen RT(R)(N) Ht: 6 ft 0 in Wt: 218 lbs HR: 51 bpm BP: 125/74 mmHg BSA: 2.21 m2 TID: 0.97 History: chest pain..soa..fatigue Procedure: Patient exercised on Marcell protocol 10:30 minutes and sec, resting heart rate 51 bpm, resting blood pressure 125/74 mmHg, with exercise maximum heart rate achived was 129 bpm which is 84 % of the maximum predicted heart rate and blood pressure was 190/74 mmHg. Patient denied any complaint of chest pain. Patient has good exercise capacity, achieved 12.8 METs of workload on treadmill, the blood pressure response to exercise was normal. Cardiac Stress and Resting SPECT Images: Cardiac Stress and Resting SPECT images were obtained using technetium 99m Myoview 32.8 mCi stress and 10.89 mCi at rest. This is a technically difficult study. Raw imaging is remarkable for presence of soft tissue overlying the cardiac borders. This may affect the diagnostic interpretation of the study findings. Resting and stress imaging in supine position demonstrate a large-sized, moderate, predominantly fixed, perfusion defect in the inferior LV wall. This is no longer visualized with prone stress imaging. Findings are suggestive of diaphragmatic attenuation. Gated imaging demonstrates a normal global and regional LV systolic function. LVEF is calculated at 58%. Conclusion: Technically difficult study due to presence of soft tissue overlying the cardiac borders. Diaphragmatic attenuation is present. No definite fixed or reversible perfusion defects are present. Gated imaging demonstrates a normal global and regional LV systolic function. LVEF is calculated at 58%. Electronically signed by : Solange Abreu, 04/08/2023 15:34:30
--- NOTE | 2023-04-05 08:56 | CA_ITS ---
APPROVED REPORT Exam: Exercise Treadmill Technologist: Claire Crabtree, Ht: 6 ft 0 in Wt: 227 lbs BSA: 2.25 m2 HR: 48 bpm BP: 135/69 mmHg Rhythm: NSR Medical History Medications: Aspirin,,,,, Simvastatin,,,,, Metformin,,,,, Gabapentin,,,,, Losartan,,,,, Pantoprazole,,,,, HCTZ,,,,, BisOPROLOL,,,,, Nitroglycerin,,,,, Prasugrel,,,,, Isosorbide Monoitrate ER,,,,, Glipizide-metformin,,,,, Stress Test Details Test: Marcell HR Resting HR: 51 bpm Max Heart Rate (APMHR): 154 bpm Max HR Achieved: 129 bpm Target HR (85% APMHR): 131 bpm % of APMHR: 84 Recovery HR: 73 bpm HR response to stress: Normal HR response to stress BP Resting BP: 125.0/74 mmHg Max BP: 190/74 mmHg Recovery BP: 146.0/68.0 mmHg BP response to stress: Normal blood pressure response to stress. ECG Resting ECG: Sinus bradycardia Stress EC mm horizontal ST depression in anterolateral leads Arrhythmia: None Recovery ECG: Return to baseline within 5 minutes of recovery Clinical Exercise duration: 10:30 min Highest Stage Achieved: IV Exercise capacity: 12.8 METs Overall Exercise Capacity for Age: Good Stress ECG Conclusion The patient exercised 10:30 on Marcell Protocol, achieving a total of 12.8 METs. He has a good exercise capacity, compared to age and sex matched peers. He has a normal HR and BP response to exercise. Max HR: 129 % of PM: 84% Max BP: 190/74 METs: 12.8 Test stopped due to: SOA, Fatigue Symptoms: No CP. Arrhythmias/Ectopy: None ST-T Changes: [address] depression in the anterolateral leads. Conclusion: Good exercise capacity. ECG stress test is suggestive of underlying ischemia. Myoview images reported separately. Test Summary REST . . . . . . . Sitting REST 03:19 0.0 0.0 51 . 125/ 74 . . Stage 1 01:00 10.0 1.7 72 . . . . Stage 1 02:00 10.0 1.7 78 . . . . Stage 1 03:00 10.0 1.7 80 . 148/ 70 . . Stage 2 01:00 12.0 2.5 86 . . . . Stage 2 02:00 12.0 2.5 87 . . . . Stage 2 03:00 12.0 2.5 91 . 160/ 72 . . Stage 3 01:00 14.0 3.4 99 . . . . Stage 3 02:00 14.0 3.4 110 . . . . Stage 3 03:00 14.0 3.4 113 . 184/ 70 . . Stage 4 01:00 16.0 4.2 122 . . . . Stage 4 01:30 16.0 4.2 127 . . . Stop exercise at 10:30 RECOVERY 01:00 0.0 0.0 106 . . . . RECOVERY 02:00 0.0 0.0 84 . 190/ 74 . . RECOVERY 03:00 0.0 0.0 75 . 190/ 74 . . RECOVERY 04:00 0.0 0.0 73 . 170/ 71 . . RECOVERY 05:00 0.0 0.0 73 . 170/ 71 . . RECOVERY 05:18 0.0 0.0 73 . 146/ 68 . . Electronically signed by : Solange Abreu, 04/08/2023 15:26:59
== END ==
PROVIDERS: PCP Family Medicine; Visit Provider Nurse Practitioner Family
DX: E78.5 Hyperlipidemia, unspecified (principal); I10 Essential (primary) hypertension; R06.00 Dyspnea, unspecified; R07.9 Chest pain, unspecified; Z95.5 Presence of coronary angioplasty implant and graft; I20.8 Other forms of angina pectoris
CPT/HCPCS: 78452; 93017; 93306; A9502

== ENCOUNTER → 2023-07-31 09:12 | Outpatient (CLI) | payer MEDICARE, OTHER, SELFPAY ==
[2023-07-31 09:58] LABS: Basophils % 0.1 % (0.1-2.0); Eosinophils % 0.3 % (0.1-12.0); Hematocrit 38.8 % (42.0-52.0); Hemoglobin 13.6 g/dL (14.1-18.0); Lymphocytes # 1.2 K/mm3 (0.7-4.5); Lymphocytes % 21.4 % (10-50); Mean Corpuscular HGB Conc 35.1 g/dL (31.8-35.4); Mean Corpuscular Hemoglobin 33.5 pg (27.0-31.2); Mean Corpuscular Volume 95.5 fl (80-94); Monocytes # 0.5 K/mm3 (0.1-1.0); Monocytes % 8.5 % (1.7-9.3); Neutrophils % 69.6 % (37.0-80.0); Platelet Count 141 K/mm3 (142-424); Red Blood Count 4.07 M/mm3 (4.60-6.20); Red Cell Distribution Width 13.6 % (11.5-17.5); White Blood Count 5.7 K/mm3 (4.8-10.8)
[2023-07-31 10:24] LABS: Alanine Aminotransferase 30 U/L (12-78); Albumin Level 4.5 g/dl (3.5-5.0); Alkaline Phosphatase 72 U/L (38-126); Anion Gap 17.1 mEq/L (5-15); Aspartate Amino Transferase 28 U/L (17-59); Bilirubin,Direct 0.1 mg/dl (0.0-0.4); Bilirubin,Indirect 0.3 mg/dL (0.0-0.9); Bilirubin,Total 0.4 mg/dl (0.2-1.3); Bilirubin,Unconjugated 0.3 mg/dL (0.0-1.1); Blood Urea Nitrogen 32 mg/dl (9-20); Calcium 8.9 mg/dl (8.4-10.2); Carbon Dioxide 25 mmol/L (22.0-30.0); Chloride 103 mmol/L (98-107); Chol/HDL Ratio 4.7 (1-3.5); Cholesterol 136 mg/dl (140-200); Estimated Glomerular Filt Rate 55 ml/min (>60); GFR (African American) 67 ML/MIN (>60); Glucose 139 mg/dl (74-100); HDL Cholesterol 29 mg/dl (40-60); Potassium 5.1 mmoL/L (3.5-5.1); Sodium 140 mmol/L (136-145); Triglycerides 253 mg/dl (30-150); VLDL Cholesterol 51 mg/dL (0-40)
[2023-07-31 10:35] LABS: Direct LDL Cholesterol 77.57 mg/dL (100-129)
[2023-07-31 10:41] LABS: Free T4 (Free Thyroxine) 1.05 ng/dl (0.78-2.19)
[2023-07-31 10:54] LABS: Thyroid Stimulating Hormone 1.89 uIU/mL (0.465-4.68)
== END ==
PROVIDERS: PCP Family Medicine; Visit Provider Physician Assistant
DX: I25.119 Atherosclerotic heart disease of native coronary artery with unspecified angina pectoris (principal); I11.9 Hypertensive heart disease without heart failure; E78.5 Hyperlipidemia, unspecified; E11.9 Type 2 diabetes mellitus without complications; Z95.5 Presence of coronary angioplasty implant and graft; Z79.84 Long term (current) use of oral hypoglycemic drugs
CPT/HCPCS: 36415; 80048; 80061; 80076; 83735; 84439; 84443; 85025

== ENCOUNTER → 2023-09-06 12:07 | Outpatient (CLI) | payer MEDICARE, OTHER, SELFPAY ==
--- NOTE | 2023-09-06 12:17 | XR_ITS ---
FINAL REPORT CLINICAL HISTORY: pain FINDINGS: Right hip Three views were obtained. There is no acute fracture or dislocation. The joint spaces appear normal. No soft tissue abnormality is identified. IMPRESSION: No acute process. Reviewed, Interpreted and Dictated by Tani Simon MD Transcribed by Alma Rowley Authenticated and [facility]
== END ==
PROVIDERS: PCP Family Medicine; Visit Provider Family Medicine
DX: M25.551 Pain in right hip (principal)
CPT/HCPCS: 73502

== ENCOUNTER 2023-12-04 06:18 | Day surgery (SDC) | payer MEDICARE, OTHER, SELFPAY ==
[2023-11-30 13:32] VITALS: BMI 30.5
--- NOTE | 2023-12-04 06:38 | SUR.PREOP ---
Pt stated he is liquid brown w/ particles. He stated he notified office 1 week ago to see what else he could do to be cleaned out with no response. He did clear liquids from Sunday lunch until 519 and drank all of prep. I spoke with Dr Villanueva and patient is doing an anema for diagnostic to see if okay to proceed with colonoscopy. Fleets given to patient to administer himself.
[2023-12-04] MEDS: SODIUM PHOS/BIPHOSPHATE FLEET 133ML ENEMA 133 ML RC (06:42)
[2023-12-04] MEDS: LACTATED RINGERS 1000ML 1,000 ML 25 ML IV (06:50)
[2023-12-04 06:51] VITALS: BP 159/75; PULSE 60; RESP 20; TEMP 36.5; O2SAT 94
--- NOTE | 2023-12-04 07:09 | HMH.SCOPE ---
Procedure: Date: 12/04/23 Patient Date of :: 1955 Procedure Performed:: Colonoscopy with polypectomy Indications:: History of colon polyps Note: The patient had 3 polyps excised in 2007. Follow-up colonoscopy in 2012 was reportedly negative . Performing Provider:: Cem Villanueva MD Referring Provider:: . Sedation:: Monitored anesthesia care Procedure:: After informed consent was obtained the patient was taken to the endoscopy suite. Sedation ensued after the patient was transferred to the left lateral decubitus position. Pulse, blood pressure, and oxygen saturation were monitored throughout the procedure. Digital rectal exam revealed no significant abnormality. The colonoscope was placed in position. The entire colon was evaluated. The colonoscope was carefully removed and the patient was transferred to recovery in stable condition. Please see findings and specimens below for detail. Findings:: Bowel preparation moderate for Fairly significant lack of relaxation (particularly in sigmoid colon) Hemorrhoidal cushions Sessile cecal polyp Specimens:: Sessile cecal polyp (cold snare) Recommendations:: Timing of repeat colonoscopy is pending pathology will likely be between 1-2 years with extended/alternate bowel preparation secondary to moderate to poor bowel preparation, lack of relaxation, and history of polyps. Complications:: No immediate Estimated blood obtained (mL): 1 Colonoscopy Component Colonoscopy Component Was a colonoscopy performed during today's procedure?: Yes Recommended follow up colonoscopy of at least 10 years?: No If no, follow up colonoscopy recommended in ___ years?: (See above) Reason for not recommending >/= 10 yr follow-up interval?: (See above)
--- NOTE | 2023-12-04 07:14 | EXP.ANES.CKL ---
[facility] Disclaimer: The information contained in this section may have been updated after the patient was seen, as this information can be updated by other users. Medical History History of left heart catheterization (LHC) Chest pain Surgical History History of colonoscopy Family History Other Family history of cancer Family history of cardiovascular disease Family history of diabetes mellitus type II Family history of hypertension Social History Smoking Status: Never smoker alcohol intake: never substance use type: denies use current occupational status: retired Travel in the last 8 weeks: Inside the [place] household members: none housing: house current occupational exposures/hazards: No caffeine: Yes [facility] Anesthesia Checklist Patient Identification Patient Identification: Arm Band and Verbal (Name & ) Structural Data Admitted From: Home Planned Operative Procedure/s: Colonoscopy Consent for Planned Operative Procedure(s) Verified: Yes NPO Status Verified Time NPO: 00:00 Additional verifications Anesthesia Reactions: No Hx Blood Transfusions: No Blood Transfusion Reaction: No Airway Assessment Mallampati Score:: Class III C-Spine Mobility Assessed: Yes TMJ Mobility Assessed: Yes Dentition: Good Dentition Neurological Assessment Level of Consciousness: Awake Hx Seizures: No Numbness or tingling in extremities: No Anesthesia Plan Anesthesia Risk discussed: Yes Anesthesia Plan: Verified ASA Class: III Anesthesia Type: MAC
[2023-12-04 07:26] VITALS: O2SAT 94
[2023-12-04 08:10] VITALS: BP 82/38; PULSE 56; RESP 14; O2SAT 94
[2023-12-04 08:20] VITALS: BP 101/48; PULSE 60; RESP 16; O2SAT 96
[2023-12-04 08:30] VITALS: BP 118/67; PULSE 55; RESP 17; O2SAT 98
[2023-12-04 08:40] VITALS: BP 130/78; PULSE 55; RESP 17; TEMP 36.6; O2SAT 98
[2023-12-05 12:31] LABS: POC Glucose,Bedside 135 (70-110)
== END 2023-12-04 08:40 | disposition home or self-care (01) ==
PROVIDERS: PCP Family Medicine; Visit Provider Surgery
PROC: 0DJD8ZZ Inspection of Lower Intestinal Tract, Via Natural or Artificial Opening Endoscopic (ICD-10-PCS; CPT 45385; principal; 2023-12-04 07:30)
DX: Z12.11 Encounter for screening for malignant neoplasm of colon (principal); Z86.010 Personal history of colon polyps; K64.8 Other hemorrhoids; D12.0 Benign neoplasm of cecum; Z79.899 Other long term (current) drug therapy
CPT/HCPCS: 45385; 82962; 88305

== ENCOUNTER 2024-01-29 09:07 | Outpatient (CLI) | payer MEDICARE, OTHER, SELFPAY ==
[2024-01-29 10:32] LABS: Alanine Aminotransferase 26 U/L (12-78); Albumin Level 4.6 g/dl (3.5-5.0); Alkaline Phosphatase 68 U/L (38-126); Aspartate Amino Transferase 24 U/L (17-59); Bilirubin,Direct 0.1 mg/dl (0.0-0.4); Bilirubin,Indirect 0.4 mg/dL (0.0-0.9); Bilirubin,Total 0.5 mg/dl (0.2-1.3); Bilirubin,Unconjugated 0.4 mg/dL (0.0-1.1); Chol/HDL Ratio 2.4 (1-3.5); Cholesterol 95 mg/dl (140-200); HDL Cholesterol 40 mg/dl (40-60); Triglycerides 110 mg/dl (30-150); VLDL Cholesterol 22 mg/dL (0-40)
[2024-01-29 10:43] LABS: Direct LDL Cholesterol 50.46 mg/dL (100-129)
[2024-01-29 11:16] LABS: Hemoglobin A1C 7.3 % (4.0-6.0)
== END 2024-01-29 23:59 | disposition home or self-care (01) ==
LOC: LAB 09:09
PROVIDERS: PCP Family Medicine; Visit Provider Nurse Practitioner Family
DX: I11.9 Hypertensive heart disease without heart failure (principal); I25.118 Atherosclerotic heart disease of native coronary artery with other forms of angina pectoris; E11.9 Type 2 diabetes mellitus without complications; E78.2 Mixed hyperlipidemia; Z79.84 Long term (current) use of oral hypoglycemic drugs; Z95.5 Presence of coronary angioplasty implant and graft
CPT/HCPCS: 36415; 80061; 80076; 83036

== ENCOUNTER 2024-12-09 09:48 | Outpatient (CLI) | payer MEDICARE, OTHER, SELFPAY ==
[2024-12-09 10:18] LABS: Eosinophils % 0.2 % (0.1-12.0); Hematocrit 36.9 % (42.0-52.0); Hemoglobin 12.6 g/dL (14.1-18.0); Lymphocytes % 21.1 % (10-50); Mean Corpuscular HGB Conc 34.1 g/dL (31.8-35.4); Mean Corpuscular Volume 90.9 fl (80-94); Mean Platelet Volume 9.4 fl (7.4-10.4); Monocytes # 0.6 K/mm3 (0.1-1.0); Monocytes % 12.1 % (1.7-9.3); Neutrophils # 3.1 K/mm3 (1.8-7.8); Neutrophils % 66.4 % (37.0-80.0); Platelet Count 157 K/mm3 (142-424); Red Blood Count 4.06 M/mm3 (4.60-6.20); Red Cell Distribution Width 12.8 % (11.5-17.5); White Blood Count 4.7 K/mm3 (4.8-10.8)
[2024-12-09 11:20] LABS: Alanine Aminotransferase 29 U/L (12-78); Albumin Level 4.8 g/dl (3.5-5.0); Alkaline Phosphatase 57 U/L (38-126); Anion Gap 11.6 mEq/L (5-15); Aspartate Amino Transferase 27 U/L (17-59); Bilirubin,Direct 0.2 mg/dl (0.0-0.4); Bilirubin,Indirect 0.5 mg/dL (0.0-0.9); Bilirubin,Total 0.7 mg/dl (0.2-1.3); Bilirubin,Unconjugated 0.5 mg/dL (0.0-1.1); Blood Urea Nitrogen 25 mg/dl (9-20); Calcium 9.3 mg/dl (8.4-10.2); Carbon Dioxide 25 mmol/L (22.0-30.0); Chloride 107 mmol/L (98-107); Chol/HDL Ratio 2.9 (1-3.5); Cholesterol 97 mg/dl (140-200); Estimated Glomerular Filt Rate 55 ml/min (>60); GFR (African American) 67 ML/MIN (>60); Glucose 120 mg/dl (74-100); HDL Cholesterol 33 mg/dl (40-60); Potassium 4.6 mmoL/L (3.5-5.1); Sodium 139 mmol/L (136-145); Triglycerides 129 mg/dl (30-150); VLDL Cholesterol 26 mg/dL (0-40)
[2024-12-09 11:31] LABS: Direct LDL Cholesterol 39.04 mg/dL (100-129)
[2024-12-09 11:40] LABS: Free T4 (Free Thyroxine) 1.12 ng/dl (0.78-2.19)
[2024-12-09 11:51] LABS: Thyroid Stimulating Hormone 2.02 uIU/mL (0.465-4.68)
== END 2024-12-09 23:59 | disposition home or self-care (01) ==
LOC: LAB 09:49
PROVIDERS: PCP Family Medicine; Visit Provider Physician Assistant
DX: I51.89 Other ill-defined heart diseases (principal); I25.118 Atherosclerotic heart disease of native coronary artery with other forms of angina pectoris; E11.9 Type 2 diabetes mellitus without complications; E78.2 Mixed hyperlipidemia; I10 Essential (primary) hypertension; Z95.5 Presence of coronary angioplasty implant and graft; R42 Dizziness and giddiness; R06.02 Shortness of breath
CPT/HCPCS: 36415; 80048; 80061; 80076; 83735; 84439; 84443; 85025

== ENCOUNTER 2024-12-17 07:27 | Day surgery (SDC) | payer MEDICARE, OTHER, SELFPAY ==
[2024-12-17] VITALS (11 sets, daily range): BP systolic 102–151; BP diastolic 56–77; PULSE 50–62; RESP 18–20; O2SAT 94–97; BMI 30.4
--- NOTE | 2024-12-17 07:15 | IR_ITS ---
APPROVED REPORT Patient Location: Outpatient PROCEDURES Left heart catheterization Left ventriculogram Selective coronary angiogram Intravascular ultrasound of the left main artery and LAD INDICATION Coronary artery disease, Abnormal Myoview, Angina pectoris, Angiographic ambiguity, Informed consent was obtained prior to the procedure. COMPLICATIONS NONE Estimated Blood Loss: LESS THAN 10 ML TECHNIQUE One percent lidocaine used to anesthetize the right anterior aspect of the wrist. The right radial artery was accessed via the Seldinger technique. A 6 [place] sheath was placed in the right radial artery. 2.5 mg of Verapamil, 800 mcg of nitroglycerin, 1mg Lidocaine and 5000 U Heparin were given through the arterial sheath. The papa catheter was also used to perform left heart catheterization, left ventriculogram and selective coronary angiogram. At the end the diagnostic angiogram therapeutic heparin was administered given a therapeutic ACT and the guide catheter was placed in left main artery followed by Choice PT extra-support wire placed on the LAD. Intravascular ultrasound probe was advanced which demonstrated good stent apposition and expansion in the proximal LAD which extended back to the left main artery. After achieving successful diagnostic angiography the apparatus was removed the sheath was removed good hemostasis was achieved using TR banding patient was transferred to the postop putting in stable condition ANGIOGRAPHIC RESULTS The left main artery Has a stent in the proximal segment which is widely patent and extends into the LAD The left anterior descending artery Has a stent originating from the left main artery and extends into the proximal segment the stent is widely patent with minimal in-stent restenosis and excellent proximal distal transitioning. The remaining LAD has wide patency with diffuse 10 to 20% luminal regularities The circumflex artery Large and dominant has a stent originating from the left main artery into the proximal segment. The stent is widely patent free of in-stent restenosis with excellent proximal distal transitioning. The remaining circumflex artery has 20% luminal regularities. There is a medium sized 1.5 mm ramus intermedius which has an ostial 80 to 90% stenosis The right coronary artery Nondominant yet still large with diffuse proximal and mid vessel 20 to 30% stenosis The BLEVINS ventriculogram reveals Normal 60% The left ventricular end-diastolic pressure 20 mmHg IMPRESSION Coronary disease as described above Severe stenosis in a small to medium sized ostial ramus intermedius which originates from a trifurcating distal left main which is best managed medically Normal ejection fraction Mildly elevated LVEDP PLAN 1. Medical management 2. Maximize antianginal medications Electronically signed by : Lyndon Swanson MD 12/17/2024 15:33:47
[2024-12-17 07:54] LABS: Hematocrit 37.1 % (42.0-52.0); Hemoglobin 12.7 g/dL (14.1-18.0); Lymphocytes # 1.2 K/mm3 (0.7-4.5); Lymphocytes % 21.3 % (10-50); Mean Corpuscular HGB Conc 34.2 g/dL (31.8-35.4); Mean Corpuscular Hemoglobin 32.2 pg (27.0-31.2); Mean Corpuscular Volume 93.9 fl (80-94); Mean Platelet Volume 9.1 fl (7.4-10.4); Monocytes # 0.7 K/mm3 (0.1-1.0); Monocytes % 12.1 % (1.7-9.3); Neutrophils # 3.8 K/mm3 (1.8-7.8); Neutrophils % 66.1 % (37.0-80.0); Platelet Count 155 K/mm3 (142-424); Red Blood Count 3.95 M/mm3 (4.60-6.20); White Blood Count 5.7 K/mm3 (4.8-10.8)
[2024-12-17 08:12] LABS: Anion Gap 15.8 mEq/L (5-15); Blood Urea Nitrogen 26 mg/dl (9-20); Calcium 9.7 mg/dl (8.4-10.2); Carbon Dioxide 27 mmol/L (22.0-30.0); Chloride 104 mmol/L (98-107); Creatinine Clearance Estimated 64 mL/min (50-200); Estimated Glomerular Filt Rate 43 ml/min (>60); GFR (African American) 52 ML/MIN (>60); Glucose 120 mg/dl (74-100); Potassium 4.8 mmoL/L (3.5-5.1); Sodium 142 mmol/L (136-145)
[2024-12-17] MEDS: HEPARIN 1,000 UNITS/500ML NS (CATH LAB) 3000 UNIT IV (10:12)
[2024-12-17] MEDS: METHYLPREDNISOLONE SOD SUCC 125MG VIAL 125 MG IV (10:12)
[2024-12-17] MEDS: diphenhydrAMINE 50MG/ML VIAL 50 MG IV (10:12)
[2024-12-17] MEDS: FAMOTIDINE 20MG/2ML VIAL 20 MG IV (10:12)
[2024-12-17] MEDS: VERAPAMIL 2.5MG/ML 2ML VIAL 2.5 MG IV (10:13)
[2024-12-17] MEDS: LIDOCAINE 1% 10ML MDV 20 ML IJ (10:13)
[2024-12-17] MEDS: NITROGLYCERIN 800MCG/8ML SYR (CATH LAB) 800 MCG IA (10:13)
[2024-12-17] MEDS: HEPARIN 1,000 UNITS/ML 10ML VIAL (CATH LAB) 10000 UNIT IV (10:14)
[2024-12-17] MEDS: 0.9 % SODIUM CHLORIDE 500 ML 25 ML IV (10:14)
[2024-12-17] MEDS: FENTANYL 100MCG/2ML VIAL 50 MCG IV (10:32)
[2024-12-17] MEDS: MIDAZOLAM HCL 1MG/ML 5ML VIAL 1 MG IV (10:32)
[2024-12-17] MEDS: IOPAMIDOL-370 (76%);100ML BOTTLE 90 ML IV (11:23)
[2024-12-17 14:58] LABS: CATHL Activated Clotting Time 241 SEC (74-125)
== END 2024-12-17 14:00 | disposition home or self-care (01) ==
PROVIDERS: PCP Family Medicine; Visit Provider Internal Medicine
DX: I25.118 Atherosclerotic heart disease of native coronary artery with other forms of angina pectoris (principal); I12.9 Hypertensive chronic kidney disease with stage 1 through stage 4 chronic kidney disease, or unspecified chronic kidney disease; E11.22 Type 2 diabetes mellitus with diabetic chronic kidney disease; N18.2 Chronic kidney disease, stage 2 (mild); Z95.5 Presence of coronary angioplasty implant and graft; R42 Dizziness and giddiness; R06.02 Shortness of breath; Z82.49 Family history of ischemic heart disease and other diseases of the circulatory system; E78.5 Hyperlipidemia, unspecified; Z88.0 Allergy status to penicillin; Z91.013 Allergy to seafood; Z79.01 Long term (current) use of anticoagulants; Z88.8 Allergy status to other drugs, medicaments and biological substances; Z79.84 Long term (current) use of oral hypoglycemic drugs; Z79.82 Long term (current) use of aspirin; Z79.899 Other long term (current) drug therapy
CPT/HCPCS: 80048; 85025; 85347; 92978; 92979; 93458; 99152; 99153; C1725; C1760; C1769; J1200; J1644; J2919; J3010; Q9967; S0028

== ENCOUNTER 2024-12-19 07:48 | Outpatient (CLI) | payer MEDICARE, OTHER, SELFPAY ==
[2024-12-19 08:01] LABS: Basophils % 0.2 % (0.1-2.0); Hematocrit 36.6 % (42.0-52.0); Hemoglobin 12.6 g/dL (14.1-18.0); Lymphocytes # 1.4 K/mm3 (0.7-4.5); Mean Corpuscular HGB Conc 34.4 g/dL (31.8-35.4); Mean Corpuscular Hemoglobin 32.3 pg (27.0-31.2); Mean Corpuscular Volume 93.8 fl (80-94); Mean Platelet Volume 9.7 fl (7.4-10.4); Monocytes # 0.7 K/mm3 (0.1-1.0); Monocytes % 10.8 % (1.7-9.3); Neutrophils # 4.1 K/mm3 (1.8-7.8); Neutrophils % 66.7 % (37.0-80.0); Platelet Count 151 K/mm3 (142-424); Red Cell Distribution Width 13.1 % (11.5-17.5); White Blood Count 6.2 K/mm3 (4.8-10.8)
[2024-12-19 08:36] LABS: Anion Gap 15.6 mEq/L (5-15); Blood Urea Nitrogen 29 mg/dl (9-20); Calcium 9.5 mg/dl (8.4-10.2); Carbon Dioxide 26 mmol/L (22.0-30.0); Chloride 104 mmol/L (98-107); Estimated Glomerular Filt Rate 47 ml/min (>60); GFR (African American) 56 ML/MIN (>60); Glucose 145 mg/dl (74-100); Potassium 4.6 mmoL/L (3.5-5.1); Sodium 141 mmol/L (136-145)
== END 2024-12-19 23:59 | disposition home or self-care (01) ==
LOC: LAB 07:49
PROVIDERS: PCP Family Medicine; Visit Provider Internal Medicine
DX: I25.10 Atherosclerotic heart disease of native coronary artery without angina pectoris (principal); E11.9 Type 2 diabetes mellitus without complications
CPT/HCPCS: 36415; 80048; 85025

== ENCOUNTER 2024-12-29 10:22 | Outpatient (CLI) | payer MEDICARE, OTHER, SELFPAY ==
--- NOTE | 2024-12-29 10:30 | CT_ITS ---
FINAL REPORT TECHNIQUE: Axial images were obtained through the chest without contrast. CLINICAL HISTORY: Chest pain and shortness of breath COMPARISON: None FINDINGS: There are dense coronary artery calcifications. The heart size is normal. No mediastinal mass or adenopathy. There is no pericardial or pleural effusion. There is a 4 mm noncalcified nodule in the right upper lobe on image 70 of series 3. Limited images of the upper abdomen demonstrate a calcification in the posterior right lobe of the liver, likely sequela from old subcapsular hematoma. IMPRESSION: Right upper lobe nodule. One year follow-up recommended per Fleischner criteria. Reviewed, Interpreted and Dictated by Tani Simon MD Transcribed by Pat Shen Authenticated and [facility]
== END 2024-12-29 23:59 | disposition home or self-care (01) ==
LOC: RAD 10:23
PROVIDERS: PCP Family Medicine; Visit Provider Physician Assistant
DX: R06.02 Shortness of breath (principal); I20.9 Angina pectoris, unspecified; I50.30 Unspecified diastolic (congestive) heart failure
CPT/HCPCS: 71250

== ENCOUNTER 2025-03-17 07:38 | Outpatient (CLI) | payer MEDICARE, OTHER, SELFPAY ==
--- OUTSIDE RECORDS SUMMARY | 2024-03-18 05:10 | XMS_ITS ---
Author Organization [facility] Address [address] [place] [phone] Care Team Providers Care Bottle Packing Machine Cleaner Name Role Phone Gibran Bob Primary Care Provider [phone] Wyatt Claudio Unavailable [phone] Allergies Allergen (clinical drug ingredient) Drug/Non Drug [...] 10 MG 1 tablet Orally Once a day for 30 day(s) Active glipiZIDE-metFORMIN HCl 2.5-500 MG 2 tab(s) orally once daily (evening) Not-Taking Vital Signs Blood pressure systolic 112 mm Hg 03/18/20 24 Blood pressure diastolic 58 mm Hg 024 Heart Rate 67 /min 03/18/2024 Height 72 in 03/18/2024 Weight 228.4 lbs 03/18/2024 BMI 30.97 kg/m2 03/18/2024 Encounters Encounter Location Date Provider Diagnosis [facility] [address] [facility] [address] [place], [place] [id number] 03/18/2024 R German [place] Hip pain M25.559 ; Essential hypertension I10 ; Type 2 diabetes mellitus without complication E11.9 ; Dyslipidemia E78.5 ; Chronic kidney disease, stage 3a N18.31 ; Coronary artery disease without angina pectoris, unspecified vessel or lesion type, unspecified whether [place] or transplanted heart I25.10 ; Encounter for [...] unspecified vessel or lesion type, unspecified whether [place] or transplanted heart (ICD-10 - I25.10) 03/18/2024 [...] Follow Up: 6 Months, Reason: Provider Name:Wyatt Roberts, 09/10/2025 10:15:00 AM, [address] [facility] [address], [place], [place], [id number], Progress Notes * HAYDENCHRISDOB: 7 (70 yo M)Acc No.[id number]:03/18/2024 Progress Notes Patient: CHRIS FONTAINE Provider: Wyatt Claudio M.D. :1955 A ge:69 Y S ex:Male Date:03/18/2024 Address:[address] [place] [address], [id number] Pcp:Gibran Bob Subjective: * Chief Complaints: * 1 . 6 months. * HPI: H PI: Patient is here today for a scheduled 6 month c heck up a nd a Medicare Annual Wellness Visit. 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 C ardiology: He continues to follow with [...] Bleeding Aug 2008, Heart Cath, Stent placement- [place] February 2016, Heart Cath, stents placement (3) [...] NOT smoke, F ormer Smoker:?No. 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 * Medications: T aking Effient 10 MG [...] Moves slowly from chair onto exam table. Carotid upstroke: n ormal, no bruits. Heart sounds: R RR, normal S1, S2. Murmur, click , gallop: n one. Lungs: c lear, no rales or wheezes. Abdomen: p ositive BS, soft, nontender. Extremities: T race ankle edema. . ? Assessment: [...] unspecified vessel or lesion type, unspecified whether [place] or transplanted heart - I25.10 7 . [...] unspecified vessel or lesion type, unspecified whether [place] or transplanted heart Continue Effient Tablet, 10 [...] 7.0%<8.0% * Follow Up: 6 Months * Billing Information: * Visit Code: 25615 Office Visit, Est Pt., Level 3. * Procedure Codes: 13010 PULSE OX. 3051F HG A1C>EQUAL 7.0%<8.0%. * Electronic signature of Wyatt Claudio MD on 03/17/2025 at 07:41 AM EDT Sign off status: Pending * Provider: Wyatt Claudio M.D. Date: 0 03/18/2024 Generated for Iraj garcia/Ousmane/Jessiitting on: 0 03/17/2025 07:41 AM EDT History and Physical Notes * HPI (History of Present Illness) Category Sub-Category Detail Notes Category Not es HPI Patient is here today for a [facility] 6 month check up and a Medicare Annual Wellness Visit. 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 Examination Category Sub-Category Detail Notes Category Not es Cardiology Lungs: clear, no rales or wheezes Heart sounds: RRR, normal S1, S2 Abdomen: positive BS, soft, n ontender Carotid upstroke: normal, no bruits Extremities: Trace ankle edema. Murmur, click , gallop: none General Appearance: NAD. Moves slowly fr om chair onto exam table
--- OUTSIDE RECORDS SUMMARY | 2024-09-09 06:15 | XMS_ITS ---
Author Organization [facility] Address [address] [facility] [address] [place] [id number] Care Team Providers Care Customer Support Analyst Name Role Phone Maxi Bobian Primary Care Provider Wyatt Claudio [phone] Allergies Allergen (clinical drug ingredient) Drug/Non Drug [...] 54 Performing Lab: Notes/Report: Test performed by [facility] , [address], [place] [address] Maxx Koch MD, Ovens Supervisor CLIA: [id number] Sodium 141 135-145 mmol/L Potassium 5.0 3.5-5.3 [...] Interpretation:Normal Performing Lab: Notes/Report: Test performed by [facility] [address] [place], [place] [address] [place] , [address], [place] [address] Maxx Koch MD, Ovens Supervisor CLIA: [id number] PSA 2.09 <4.00 ng/mL Please note this is an ultrasensitive PSA assay with a lower limit of detection of 0.014 ng/mL. This test is performed by the [facility] ECLIA methodology. Values obtained with different assay methods or kits cannot be directly compared. P-Microalbumin/Creatinine, R andom Urine Sample Reviewed date:09/18/2024 08:38:06 AM Interpretation:Normal Performing Lab: Notes/Report: Test performed by [facility] [address] [place], [place] [address] [place] , [address], [place] [address] Mxax Koch MD, Ovens Supervisor CLIA: [id number] Albumin/Creatinine Ratio, Urine 6 0-30 ug/m g [...] Once a day for 30 day(s) Active Simvastatin 80 MG 1 [...] Problem Status W/U Status Risk Notes Problem Type 2 diabetes mellitus with other circulatory complication (E11.59) Active confirmed Problem Hyperlipidemia due to type 2 diabetes mellitus (disorder) (210939065884676) Hyperlipidemia associated with type 2 diabetes mellitus (E11.69) Active confirmed Problem Diabetic renal disease (635674150) Type 2 diabetes mellitus with diabetic chronic kidney disease (E11.22) Active confirmed Vital Signs Blood pressure systolic 128 mm Hg 09/09/20 24 Blood pressure diastolic 70 mm Hg 024 Heart Rate 49 /min 09/09/2024 Height 72 in 09/09/2024 Weight 228.2 lbs 09/09/2024 BMI 30.95 kg/m2 09/09/2024 Encounters Encounter Location Date Provider Diagnosis [facility] [address] [facility] [address] [place] [id number] 09/09/2024 Wyatt Claudio Type 2 diabetes stu [...] unspecified vessel or lesion type, unspecified whether [place] or transplanted heart I25.10 ; Encounter for [...] unspecified vessel or lesion type, unspecified whether [place] or transplanted heart (ICD-10 - I25.10) 09/09/2024 [...] Provider Name:Wyatt Roberts, 09/10/2025 10:15:00 AM, [address] [facility] [address], [address], [place], [id number], Progress Notes * HAYDENCHRISDOB: 7 (70 yo M)Acc No.[id number]:09/09/2024 Progress Notes Patient: CHRIS FONTAINE Provider: Wyatt Claudio M.D. :1955 A ge:69 Y S ex:Male Date:09/09/2024 Address:[address] [place] [address], [id number] Pcp:Gibran Bob Subjective: * Chief Complaints: * [...] Bleeding Aug 2008, Heart Cath, Stent placement- [place] February 2016, Heart Cath, stents placement (3) November 2017. * Family History: F ather: 84 yrs, diagnosed with Heart Disease. M other: 72 yrs, diagnosed with Diabetes, Hypertension, Heart Disease, Mental Illness. C melba: alive. S iblings: diagnosed with Heart Disease, Cancer, Diabetes. 1 brother(s) , 4 sister(s) . 1 son(s) - healthy. . Brother - , heart disease (53)- , \npancreas, liver, bone cancer (61). * Social History: C URRENT TOBACCO USE S moking Status: P atient does NOT smoke, F ormer Smoker:?No. 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 * Medications: T aking Ezetimibe 10 MG [...] ardiology: General Appearance: p leasant, NAD. . Carotid upstroke: n ormal, no bruits. Heart sounds: R RR, normal S1, S2. Murmur, click , gallop: n one. Lungs: c lear, no rales or wheezes. Abdomen: p ositive BS, soft, nontender. Extremities: T race ankle edema. . Assessment: * [...] unspecified vessel or lesion type, unspecified whether [place] or transplanted heart - I25.10 ?9. E [...] unspecified vessel or lesion type, unspecified whether [place] or transplanted heart? Continue Effient Tablet, 10 [...] G 2211 Complex e/[place], [address] CBC WITH AUTO DIFF, 68683 GLYCATED HEMOGLOBIN TEST, Modifiers: QW * Follow Up: 6 Months * Billing Information: * Visit Code: 23642 Office Visit, Est Pt., Level 4. * Procedure Codes: G2211 Complex e/[place]. [address] CBC WITH AUTO DIFF. 23242 GLYCATED HEMOGLOBIN TEST. Modifiers: QW * Electronic signature of Wyatt Claudio MD on 03/17/2025 at 07:42 AM EDT Sign off status: Pending * Provider: Wyatt Claudio M.D. Date: 11/10/2023 Generated for Iraj garcia/Ousmane/Jessiitting on: 0 03/17/2025 07:42 AM EDT History and Physical Notes * HPI (History of Present Illness) Category Sub-Category Detail Notes Category Not es [facility]inology [facility] Pt [...]
--- OUTSIDE RECORDS SUMMARY | 2025-03-10 05:30 | XMS_ITS ---
Author Organization [facility] Address [address] [facility] [address] [place] [id number] Care Team Providers Care Endocrinology Teacher Name Role Phone Gibran Bob Primary Care Provider Wyatt Claudio [phone] Allergies Allergen (clinical drug ingredient) Drug/Non Drug [...] 120 Performing Lab: Notes/Report: Test performed by [facility] [address] [place] [address] , [address], [place] [address] Maxx Koch MD, Telecommunications Network Planner CLIA: [id number] Sodium 143 135-145 mmol/L Potassium 4.9 3.5-5.3 [...] 09:51:30 PM Interpretation:LDL 40 Performing Lab: Notes/Report: Test performed by [facility], [address] , [address], [place] [address] Maxx Koch MD, Telecommunications Network Planner CLIA: [id number] Cholesterol 107 <200 mg/dL Triglycerides 152 <150 [...] date:03/15/2025 09:51:30 PM Interpretation:normal Performing Lab: Notes/Report: Test performed by [facility], [facility] [address] [place] [address] , [address], [place] [address] Maxx Koch MD, Telecommunications Network Planner CLIA: [id number] Albumin/Creatinine Ratio, Urine 4 0-30 ug/m g Microalbumin, Urine, Random 0.8 Creatinine, Urine 187.1 Reason For Referral Reason Refer to Dr. Thaddeus Osorio with [facility] to establish care; hx of ASCVD Diagnosis 1 Coronary artery dise ase without angina pectoris, unspecified vessel or lesion type, unspecified whether [place] or transplanted heart (I25.10) Referral Organization [facility] Referring Provider First Name Wyatt Porter Referring Provider Last Name Shanon Referring Provider Speciality [facility] Referred Provider Cardiology, . Referred Provider Specialty [...] Once a day for 30 day(s) Active Losartan Potassium 25 MG [...] Problem Status W/U Status Risk Notes Problem [id number] Hypertensive heart and chronic kidney disease with heart failure and stage 1 through stage 4 chronic kidney disease, or unspecified chronic kidney disease (I13.0) Active confirmed Problem 637737809 BMI 30.0-30.9,adult (Z68.30) Active confirmed Vital Signs Blood pressure systolic 140 mm Hg 03/10/20 25 Blood pressure diastolic 80 mm Hg 025 Heart Rate 57 /min 03/10/2025 Height 72 in 03/10/2025 Weight 222.8 lbs 03/10/2025 BMI 30.21 kg/m2 03/10/2025 Encounters Encounter Location Date Provider Diagnosis [facility] [address] [id number] 03/10/2025 R German Claudio Adult general medica l examination Z00.00 [...] unspecified vessel or lesion type, unspecified whether [place] or transplanted heart I25.10 ; GERD (gastroesophageal [...] unspecified vessel or lesion type, unspecified whether [place] or transplanted heart (ICD-10 - I25.10) 03/10/2025 [...] 03/10/2025, Refer to Dr. Thaddeus Minaya with [facility] to establish care; hx of ASCVD, . Cardiology Next Appt Details Follow Up: 6 Months, Reason: Provider Name:Wyatt Galdamez et, 09/10/2025 10:15:00 AM, [address], [address], [place], [phone], Progress Notes * CHRIS HAYDENDOB: 7 (70 yo M)Acc No.[id number]:03/10/2025 Annual Wellness Visit Patient: CHRIS FONTAINE Provider: Wyatt Claudio M.D. :1955 A ge:70 Y S ex:Male Date:03/10/2025 Address:[address] [place] [address], [place], [id number] Pcp:Gibran Bob Subjective: * Chief Complaints: * [...] to discuss a referral to a different Can Patcher. Pt is fasting. C ardiology: He had [...] Bleeding Aug 2008, Heart Cath, Stent placement- [place] February 2016, Heart Cath, stents placement (3) November 2017. * Family History: F ather: 84 yrs, diagnosed with Heart Disease. M other: 72 yrs, diagnosed with Hypertension, Diabetes, Mental Illness, Heart Disease. C hildren: alive. S iblings: diagnosed with Cancer, Diabetes, Heart Disease. 1 brother(s) , 4 sister(s) . 1 son(s) - healthy. . Brother - , heart disease (53)- , \npancreas, liver, bone cancer (61). * Social History: C URRENT TOBACCO USE S moking Status: P atient does NOT smoke, F ormer Smoker:?No. 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 * Medications: T aking Furosemide 40 MG [...] nontender. Extremities: T race ankle edema. . * Physical [...] unspecified vessel or lesion type, unspecified whether [place] or transplanted heart - I25.10 1 0. [...] unspecified vessel or lesion type, unspecified whether [place] or transplanted heart? Continue Effient Tablet, 10 MG, 1 tab(s), orally, once a day;?Continue Aspirin Low Dose TabletDelayed Release, 81 MG, 1 tab(s), orally, once a day;?Continue Isosorbide Mononitrate ER Tablet Extended Release 24 Hour, 60 MG, 1 tab(s), orally, 2 times a day.? Referral To:. Cardiology??Cardiovascular Disease ?Reason:Refer toDr. Thaddeus Minaya with [facility] to establish care; hx of ASCVD * Procedure Codes: G 0439 ANNUAL WELLNESS VST; PPS SUBSQT VST, G2211 Complex [place], [address] GLYCATED HEMOGLOBIN TEST, Modifiers: QW , 1090F [...] today. * Follow Up: 6 Months * Billing Information: * Visit Code: 67016 Office Visit, Est Pt., Level 3. Modifiers: 25 * Procedure Codes: G0439 ANNUAL WELLNESS VST; PPS SUBSQT VST. G2211 Complex e/[place]. [address] GLYCATED HEMOGLOBIN TEST. Modifiers: QW 1090F PRES/ABSN [...] Claudio M.D. Date: 0 03/10/2025 Generated for Iraj garcia/Ousmane/eTransmitting on: 0 03/17/2025 07:41 AM EDT History [...] to discuss a referral to a different Can Patcher. Pt is fasting Physical Examination Category Sub-Category [...] . Refer to Dr. Thaddeus Minaya with [facility] to establish care; hx of ASCVD
--- OUTSIDE RECORDS SUMMARY | 2025-03-17 07:42 | XMS_ITS | Clinical Summary ---
Author Organization [facility] Address [address] [place] [address] Care Team Providers Care Veneer Stapler Name Role Phone Unavailable Primary Care Provider Unavailabl e Social History Tobacco Use Types Packs/Day Years Used Date Smoking Tobacco: Never Assessed Sex and Gender Information Value Date Recorded Sex Assigned at Not on file Legal Sex Male 8:19 PM EDT Gender Identity Not on file Sexual Orientation Not on file Last Filed Vital Signs Vital Sign Reading Time Taken Comments Blood Pressure 127/70 04/05/2023 8:56 AM EDT Pulse 56 04/05/2023 8:56 AM EDT Temperature - - Respiratory Rate - - Oxygen Saturation - - Inhaled Oxygen Concentration - - Weight 103 kg (227 lb) 04/05/2023 8:56 AM EDT Height 182.9 cm (6') 04/05/2023 8:56 AM EDT Body Mass Index 30.79 04/05/2023 8:56 AM EDT Plan of Treatment Health Maintenance Due Date Last Done Comments [facility]-Depression Screening 1955 [facility]-/Child/Adol SDOH Screenings 1955 [facility]- SDOH Screenings 1975 [facility]-Adult SDOH Screenings 1975 CT Colonography 2002 Colonoscopy 2002 FIT-DNA 2002 FIT 2002 FOBT 2002 Sigmoidoscopy 2002 [facility]-Colorectal Cancer Screening 2002 [facility]-Zoster Vaccines (1 of 2) 2007 EFI-XUSOG-97 Vaccine (3 - season) 2024 11/03/2020, 10/06/2020 [facility]-Influenza Vaccine (Seaso n Ended) 2025 08/15/2021, 08/17/2020, 08/19/2019 [facility]-DTaP,Tdap,and Td Vaccine s (2 - Td or Tdap) 02/14/2027 02/14/2017 [facility]-RSV Vaccine: 60+ Years o r (1 - 1-dose 75+ series) 02/05/2032 [facility]-Pneumococcal Vaccine: 50 + Years Completed 08/10/2022, 02/14/2017 HPV Vaccines Aged Out No longer eligi ble based on patient's age to complete this topic [facility]-HIB Vaccines Aged Out No longer e ligible based on patient's age to complete this topic [facility]-Hepatitis A Vaccines Aged Out No longer eligible based on patient's age to complete this topic [facility]-IPV Vaccines Aged Out No longer e ligible based on patient's age to complete this topic [facility]-Rotavirus Vaccines Aged Out No lo nger eligible based on patient's age to complete this topic
--- OUTSIDE RECORDS SUMMARY | 2025-03-17 07:42 | XMS_ITS | Patient Health Record ---
Author Organization [facility] Address [address] [facility] [address] [place] [id number] Care Team Providers Care Message Clerk Name Role Phone Gibran Bob Primary Care Provider Wyatt Claudio Unavailable [phone] Allergies Allergen (clinical drug ingredient) Drug/Non Drug Allergy documented on EMR Reaction Allergy Type Onset Date Status Penicillin Unknown Drug Allergy Active Shellfish (FN) Shellfish-derived Products Unknown Drug Allergy Active Results Component Value Reference Range Notes P-Microalbumin/Creatinine, R andom Urine Sample Reviewed date:03/15/2025 09:51:30 PM Interpretation:normal Performing Lab: Notes/Report: Test performed by [facility] [address] [place], [place] [address] , [address], [place] [address] Maxx Koch MD, Signal Integrity Engineer CLIA: [id number] Albumin/Creatinine Ratio, Urine 4 0-30 ug/m g Microalbumin, Urine, Random 0.8 Creatinine, Urine 187.1 P-Comprehensive Metabolic Pa sujey (CMP) Reviewed date:03/15/2025 09:51:30 PM Interpretation:FBS 120 Performing Lab: Notes/Report: Test performed by [facility] [address] [place], [place] [address] , [address], [place] [address] Maxx Koch MD, Signal Integrity Engineer CLIA: [id number] Sodium 143 135-145 mmol/L Potassium 4.9 3.5-5.3 [...] 0.5 <0.2-1.2 mg/dL A/G Ratio 2.1 1.1-2.5 Glycohemoglobin A1c (in hous e) Reviewed date:03/15/2025 09:51:30 PM Interpretation:6.5% Performing Lab: Notes/Report: 6.5% glycohemoglobin 6.5% 5 - 6.5 % P-Lipid Panel Reviewed date:03/15/2025 09:51:30 PM Interpretation:LDL 40 Performing Lab: Notes/Report: Test performed by [facility] [address] [place] [address] , [address], [place] [address] Maxx Kohc MD, Signal Integrity Engineer CLIA: [id number] Cholesterol 107 <200 mg/dL Triglycerides 152 <150 [...] Results: 40 Units: mg/dL % Change: - CBC Venipuncture (in house) Reviewed date:09/18/2024 08:38:06 [...] 54 Performing Lab: Notes/Report: Test performed by [facility] [address] [place] [address] , [address], [place] [address] Maxx Koch MD, Signal Integrity Engineer CLIA: [id number] Sodium 141 135-145 mmol/L Potassium 5.0 3.5-5.3 [...] Interpretation:Normal Performing Lab: Notes/Report: Test performed by [facility] [address] [place] [address] , [address], [place] [address] Maxx Koch MD, Signal Integrity Engineer CLIA: [id number] PSA 2.09 <4.00 ng/mL Please note this is an ultrasensitive PSA assay with a lower limit of detection of 0.014 ng/mL. This test is performed by the [employer] ECLIA methodology. Values obtained with different assay methods or kits cannot be directly compared. P-Microalbumin/Creatinine, R andom Urine Sample Reviewed date:09/18/2024 08:38:06 AM Interpretation:Normal Performing Lab: Notes/Report: Test performed by [facility] [address] [place] [address] , [address], [place] [address] Maxx Koch MD, Signal Integrity Engineer CLIA: [id number] Albumin/Creatinine Ratio, Urine 6 0-30 ug/m g Microalbumin, Urine, Random 0.7 Creatinine, Urine 120.8 Reason For Referral Reason Refer to Dr. Thaddeus Osorio with [facility] to establish care; hx of ASCVD Diagnosis 1 Coronary artery dise ase without angina pectoris, unspecified vessel or lesion type, unspecified whether [place] or transplanted heart (I25.10) Referral Organization [facility] Referring Provider First Name Wyatt Porter Referring Provider Last Name Shanon Referring Provider Speciality [facility] ct[facility] Referred Provider Cardiology, . Referred Provider Specialty Cardiovascul ar Disease General Notes Lourdes Gregory 2024 11:10:00 AM > faxed to Cardiology Referral Priority Routine Medications Medication SIG (Take, Route, Frequency, Duration) Notes Start Date End Date Status glipiZIDE 5 MG 1 tablet 30 minutes before breakfast Orally Once a day Active metFORMIN HCl 1000 MG 1 tab(s) orally once daily Active Pantoprazole Sodium 40 MG 1 tab(s) orall y once a day Active Gabapentin 100 MG 1-3 capsule Orally At Bed Time 12/02/2024 Active Accu-Chek Fe Plus 1 STRIP ONCE DAILY 02/14/2021 Active Isosorbide Mononitrate ER 60 MG 1 tab(s) orally 2 times a day Active Aspirin Low Dose 81 MG 1 tab(s) orally once a day Active Furosemide 40 MG 0.25 tablet Orally Once a day Active Effient 10 MG 1 tab(s) orally once a day Active Famotidine 20 MG 1 tablet at bedtime as needed Orally Once a day Active Ezetimibe 10 MG 1 tablet Orally Once a day for 30 day(s) Active Simvastatin 80 MG 1 tab(s) orally once a day (at bedtime) Active Ranolazine ER 500 MG 1.5 tabs orally once daily Not-Taking hydroCHLOROthiazide 25 MG 1 tab(s) orall y once a day Active Bisoprolol-hydroCHLOROthiazi d e 5-6.25 MG 1 tab(s) orally twice a day Unknown Bisoprolol Fumarate 5 MG 1 tab(s) orally once a day Active Losartan Potassium 25 MG 1 tab(s) orally once a day Active glipiZIDE-metFORMIN HCl 2.5-500 MG 2 tab(s) orally once daily (evening) Not-Taking amLODIPine Besylate 5 MG 1 tab(s) orally once a day Not-Taking Immunizations Vaccine Route Administration Date Status Comme nts Tetanus Tdap-Adacel (over 7yrs) IM Intramuscular 02/14/2017 Administered Prevnar (PCV20) IM Intramuscular 08/10/2022 Administered PNEUMOVAX 23 VACCINE IM Intramuscular 02/14/2017 Administe red PNEUMOVAX 23 VACCINE IM Intramuscular 09/06/2023 Administe red Fluzone Quad (6months&older) IM Intramuscular 08/19/2019 Administered Fluzone Quad (6months&older) IM Intramuscular 08/17/2020 Administered Fluzone High Dose (65yr and older) IM Intramuscular 08/07/2018 Administered Fluzone High Dose (65yr and older) IM Intramuscular 08/10/2022 Administered Fluzone High Dose (65yr and older) IM Intramuscular 09/06/2023 Administered Fluzone High Dose (65yr and older) IM Intramuscular 09/09/2024 Administered Flublok IM Intramuscular 08/15/2021 Administered COVID 19 Moderna Unknown 10/06/2020 Administered COVID 19 Moderna Unknown 11/03/2020 Administered Problems Problem Type SNOMED Code ICD Code Onset Dates Problem Status W/U Status Risk Notes Problem Gastroesophageal reflux disease (490077892) GERD (gastroesophageal reflux disease) (K21.9) Active confirmed Problem Neoplasm of back (370353936) 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) Active confirmed Problem 78536659 Essential hypertension (I10) Active confirmed Problem Diabetic neuropathy (957097160) Diabetic neuropathy (E11.40) Active confirmed Problem 031473358 BMI 30.0-30.9,adult (Z68.30) Active confirmed Problem Diabetic renal disease (465455921) Type 2 diabetes mellitus with diabetic chronic kidney disease (E11.22) Active confirmed Problem 28983142 Hypertensive heart and chronic kidney disease with heart failure and stage 1 through stage 4 chronic kidney disease, or unspecified chronic kidney disease (I13.0) Active confirmed Problem Hyperlipidemia due to type 2 diabetes mellitus (disorder) (478731450538531) Hyperlipidemia associated with type 2 diabetes mellitus (E11.69) Active confirmed Problem 01955871 Type 2 diabetes mellitus without complication (E11.9) Active confirmed Problem 160934539 BMI 31.0-31.9,adult (Z68.31) Active confirmed Problem 447334007 Dyslipidemia (E78.5) Active confirmed Problem Peripheral circulatory disorder associated with diabetes mellitus (419681919) Type 2 diabetes mellitus with other circulatory complication (E11.59) Active confirmed Problem 096748845 Coronary artery disease without angina pectoris, unspecified vessel or lesion type, unspecified whether [place] or transplanted heart (I25.10) Active confirmed Problem 444433927 Chronic kidney disease, stage 3a (N18.31) Active confirmed Vital Signs Heart Rate 57 /min 03/10/2025 Blood pressure diastolic 80 mm Hg 03/10/2025 Height 72 in 03/10/2025 Blood pressure systolic 140 mm Hg 03/10/2025 Weight 222.8 lbs 03/10/2025 BMI 30.21 kg/m2 03/10/2025 Encounters Encounter Location Date Provider Diagnosis [facility] [address] [place] [id number] 03/18/2024 R German Claudio Hip pain M25.559 ; Essential hypertension I10 ; Type 2 diabetes mellitus without complication E11.9 ; Dyslipidemia E78.5 ; Chronic kidney disease, stage 3a N18.31 ; Coronary artery disease without angina pectoris, unspecified vessel or lesion type, unspecified whether [place] or transplanted heart I25.10 ; Encounter for immunization Z23 and GERD (gastroesophageal reflux disease) K21.9 [facility] [address] [place], [place] [id number] 09/09/2024 [facility] Type 2 diabetes stu itus with other [...] vessel or lesion type, unspecified whether [place] or transplanted heart I25.10 ; Encounter for immunization Z23 ; GERD (gastroesophageal reflux disease) K21.9 and Screening for prostate cancer Z12.5 [facility] [facility] [address] [place], [place] [id number] 03/10/2025 R [facility] Adult general medica l examination Z00.00 ; [...] vessel or lesion type, unspecified whether [place] or transplanted heart I25.10 ; GERD (gastroesophageal reflux disease) K21.9 ; Hypertensive heart and chronic kidney disease with heart failure and stage 1 through stage 4 chronic kidney disease, or unspecified chronic kidney disease I13.0 and BMI 30.0-30.9,adult Z68.30 [facility] [address] [place], [place] [id number] 03/15/2025 Gibran Prentice [facility] [address] [place], [place] [id number] 09/18/2024 Gibran Prentice [facility] [address] [facility] [address] [place], [place] [phone] 12/02/2024 Wyatt Claudio Diabetic neuropathy E11.40 Assessments Encounter Date Diagnosis (ICD Code) Assessment Notes Treatment Notes Treatment Clinical Notes Section Notes 09/09/2024 Hyperlipidemia associated with type 2 diabetes mellitus (ICD-10 - E11.69) 09/09/2024 Type 2 diabetes mellitus with other circulatory complication (ICD-10 - E11.59) 03/10/2025 Adult general medical examination (ICD-10 - Z00.00) Patient instructed to return to office Annually for Annual Wellness Visits to include annual screenings of Pain assessment, Functional Ability assessment, Cognitive Ability assessment, Fall Risk assessment, Depression screening and Bladder control screening. 03/10/2025 Type 2 diabetes mellitus with other circulatory complication (ICD-10 - E11.59) 12/02/2024 Diabetic neuropathy (ICD-10 - E11.40) 03/18/2024 Essential hypertension (ICD-10 - I10) 03/18/2024 Hip pain (ICD-10 - M25.559) 03/18/2024 Type 2 diabetes mellitus without complication (ICD-10 - E11.9) 09/09/2024 Type 2 diabetes mellitus with diabetic chronic kidney disease (ICD-10 - E11.22) 03/10/2025 Hyperlipidemia associated with type 2 diabetes mellitus (ICD-10 - E11.69) 03/10/2025 Type 2 diabetes mellitus with diabetic chronic kidney disease (ICD-10 - E11.22) 09/09/2024 Essential hypertension (ICD-10 - I10) 03/18/2024 Dyslipidemia (ICD-10 - E78.5) 09/09/2024 Type 2 diabetes mellitus without complication (ICD-10 - E11.9) 03/10/2025 Essential hypertension (ICD-10 - I10) 03/18/2024 Chronic kidney disease, stage 3a (ICD-10 - N18.31) 03/10/2025 Type 2 diabetes mellitus without complication (ICD-10 - E11.9) Discussed adding SGLT2. Will await lab results 09/09/2024 Dyslipidemia (ICD-10 - E78.5) 03/18/2024 Coronary artery disease without angina pectoris, unspecified vessel or lesion type, unspecified whether [place] or transplanted heart (ICD-10 - I25.10) 03/18/2024 Encounter for immunization (ICD-10 - Z23) 03/10/2025 Dyslipidemia (ICD-10 - E78.5) 09/09/2024 Chronic kidney disease, stage 3a (ICD-10 - N18.31) 09/09/2024 Coronary artery disease without angina pectoris, unspecified vessel or lesion type, unspecified whether [place] or transplanted heart (ICD-10 - I25.10) 03/18/2024 GERD (gastroesophageal reflux disease) (ICD-10 - K21.9) 03/10/2025 Chronic kidney disease, stage 3a (ICD-10 - N18.31) 03/10/2025 Coronary artery disease without angina pectoris, unspecified vessel or lesion type, unspecified whether [place] or transplanted heart (ICD-10 - I25.10) 09/09/2024 Encounter for immunization (ICD-10 - Z23) 03/10/2025 GERD (gastroesophageal reflux disease) (ICD-10 - K21.9) 09/09/2024 GERD (gastroesophageal reflux disease) (ICD-10 - K21.9) 03/10/2025 Hypertensive heart and chronic kidney disease with heart failure and stage 1 through stage 4 chronic kidney disease, or unspecified chronic kidney disease (ICD-10 - I13.0) 03/10/2025 BMI 30.0-30.9,adult (ICD-10 - Z68.30) 09/09/2024 Screening for prostate cancer (ICD-10 - Z12.5) Plan Of Treatment Pending Test Test Name Order Date X ray : Hip, right 09/06/2023 colonoscopy 09/06/2023 Next Appt Details Provider Name:Wyatt Roberts, 09/10/2025 10:15:00 AM, [address], [address], [place], [id number], Insurance Providers Payer Name Payer Address Payer Phone Subscriber Number Group Number Insured Name Patient Relationship to Insured Coverage Start Date Coverage End Date MEDICARE PART B [address] [address] [place] [address] [id number] CHRIS HAYDEN Self - patient is the insured [employer] [address] [address] [place] [id number] [phone] [id number] CHRIS HAYDEN Self - patient is the insured Medical (General) History Medical History History ICD Code hypertension hyperlipidemia type 2 diabetes Tested positive for Brucellosis in 1999March 17, 2016- Heart Cath and Stent plac ement- Dr. Swanson History of sleep apnea -failed CPAP Surgical History Surgery Date(Month/Year) Fractured Nose Repair Nov & Apr 2008 Colonoscopy x 3 removed pylps Aug 2008 Heart Cath, Stent placement- Dr. Bang vo February Colonoscopy/Dr. Smith/ normal 2013 Heart cath/ Kiki/ no intervention 2019 Colonoscopy 11/2023 Hospitalization History Reason Date(Month/Year) Heart Cath, stents placement (3) November 23 018 Heart Cath, Stent placement- Jai daugherty 2015 Colonoscopy - Bleeding Aug 2008
--- NOTE | 2025-03-17 08:00 | US_ITS ---
FINAL REPORT TECHNIQUE: Multiple transverse and longitudinal images CLINICAL HISTORY: liver lesion on CT chest FINDINGS: There are fatty changes of the liver. Calcified focus in the subcapsular liver dome seen on CT is not evident on this exam. Gallbladder is unremarkable. There is no free fluid. IMPRESSION: Fatty infiltration of the liver without focal lesion. Reviewed, Interpreted and Dictated by Emerald Wright MD Transcribed by Laura Coker Authenticated and [facility]
== END 2025-03-17 23:59 | disposition home or self-care (01) ==
LOC: RAD 07:39
PROVIDERS: PCP Family Medicine; Visit Provider Nurse Practitioner Family
DX: K76.0 Fatty (change of) liver, not elsewhere classified (principal)
CPT/HCPCS: 76705

== ENCOUNTER 2025-05-20 05:39 | Day surgery (SDC) | payer MEDICARE, OTHER, SELFPAY ==
--- NOTE | 2025-05-19 16:50 | EXP.HP ---
History of Present Illness *Admission Date: 05/20/25 *History of present illness: Mr. Caballero is a 70-year-old gentleman who is here for diagnostic EGD secondary to noncardiac chest pain/esophageal chest pain, globus sensation and throat clearance and GERD. He also has moderate belching and bloating. The examination is deemed medically necessary for diagnostic EGD. The patient has been seen, interviewed and examined prior to the procedure by both myself and the anesthesia provider. [facility] Disclaimer: The information contained in this section may have been updated after the patient was seen, as this information can be updated by other users. Medical History SOB (shortness of breath) Dizziness History of left heart catheterization (LHC) x3 5 stents in total Chest pain Surgical History History of cardiac cath History of colonoscopy Family History Other Family history of cancer Family history of cardiovascular disease Family history of diabetes mellitus type II Family history of hypertension Social History (Updated 05/20/25 @ 06:21 by Laura Bourne RN) Smoking Status: Never smoker alcohol intake: never substance use type: denies use current occupational status: retired Travel in the last 8 weeks?: Inside the [place] household members: none housing: house current occupational exposures/hazards: No caffeine: Yes Have you lived/traveled outside US in past 30 days?: No Contact w/someone who lives/traveled outside US past 30 days?: No Exposure to someone with infectious disease in past 14 days?: No Do you have a fever (greater than 100.4 F or 38 C)?: No Have you tested positive for COVID-19?: No Exposed to someone with COVID-19 in past 14 days?: No Do you have a sore throat?: No Do you have a cough?: No Do you have any weakness?: No Are you experiencing any nausea/vomitting?: No Do you have any diarrhea?: No Are you experiencing any unusual bleeding?: No Do you have any muscle aches/pain?: No Do you have any abdominal pain?: No Are you experiencing loss of taste or smell?: No Other Medical History Have you received the Flu Vaccine for this season: Yes Have you received the Pneumonia Vaccine: Yes Review of Systems Review of Systems Review of systems (narrative): Negative *Cardiovascular Comments: Negative *Gastrointestinal Comments: Negative *Genitourinary Comments: Negative *Musculoskeletal Comments: Negative *Neurologic Comments: Negative Meds Home Medications and Allergies Home Medications ?Medication ?Instructions ?Recorded ?Confirmed ?Type metformin 1,000 mg tablet 1,000 mg PO DAILY Diabetes 02/08/18 05/13/25 History Held on 12/17/24. Instructions: Resume on 12/20/24. hold for 2 days glipizide 2.5 mg-metformin 500 mg 2 tab PO DAILY Diabetes 11/04/19 05/13/25 History tablet gabapentin 100 mg capsule 100 mg PO HS 03/22/23 05/20/25 History nitroglycerin 0.4 mg sublingual 0.4 mg sublingual Q5M PRN Chest 04/10/24 05/13/25 Rx tablet Pain #30 tabs ezetimibe 10 mg tablet (Zetia) 10 mg PO DAILY #90 tabs 05/02/24 05/13/25 Rx simvastatin 80 mg tablet 80 mg PO DAILY #90 tabs 05/02/24 05/13/25 Rx isosorbide mononitrate 60 mg 60 mg PO BID #60 tabs 12/17/24 05/20/25 Rx tablet,extended release 24 hr furosemide 40 mg tablet (Lasix) 20 mg (1/2 x 40 mg) PO BID #30 tabs 01/22/25 05/20/25 Rx pantoprazole 40 mg tablet,delayed See Rx Instructions .Route 01/27/25 05/20/25 Rx release .COMPLEX #90 tabs losartan 50 mg tablet 25 mg PO BID 03/12/25 05/20/25 History multivitamin 1 tab PO DAILY 03/12/25 05/20/25 History famotidine 20 mg tablet (Pepcid) 20 mg PO DAILY #30 tabs 04/27/25 05/13/25 Rx prasugrel HCl 10 mg tablet See Rx Instructions .Route 04/27/25 05/13/25 Rx .COMPLEX #90 tabs hydrochlorothiazide 25 mg tablet See Rx Instructions .Route 05/04/25 05/20/25 Rx .COMPLEX #90 tabs bisoprolol fumarate 5 mg tablet 5 mg PO BID #180 tabs 05/13/25 05/20/25 Rx New Prescriptions to Start Prescriptions: Allergies Allergy/AdvReac Type Severity Reaction Status Date / Time Penicillins Allergy Unknown UNKNOWN Verified 05/20/25 06:29 REACTION FROM CHILDHOOD shellfish derived Allergy Nausea Verified 05/20/25 06:29 ranolazine AdvReac made me Verified 05/20/25 06:29 sick Exam *Routine HEENT Exam Head: Present normocephalic Eye: Present EOMI and PERRL ENT: Present mucous membranes moist *Routine Neck Exam Neck: Present supple *Routine Respiratory Exam Respiratory: Present CTA bilaterally *Routine Cardiovascular Exam Cardiovascular: Present RRR *Routine Abdominal Exam Abdominal: Present soft and normoactive bowel sounds; Absent tenderness *Routine Rectal Exam Rectal:: deferred *Routine Genitalia Exam Genitalia:: deferred *Routine Extremities Exam Extremities: Absent cyanosis, clubbing or edema *Routine Skin Exam Skin: Present warm; Absent rash *Routine Neurological Exam Neurological: Present alert and oriented X3 Assessment and Plan *Assessment and plan (1) Non-cardiac chest pain: Status: Acute Category: Medical Code(s): R07.89 - Other chest pain (2) Globus sensation: Status: Acute Category: Medical Code(s): R09.A2 - Foreign body sensation, throat (3) Throat clearing: Status: Acute Category: Medical Code(s): R09.89 - Other specified symptoms and signs involving the circulatory and respiratory systems (4) H/O gastroesophageal reflux (GERD): Status: Acute Category: Medical Code(s): Z87.19 - Personal history of other diseases of the digestive system (5) Belching: Status: Acute Category: Medical Code(s): R14.2 - Eructation (6) Bloating: Status: Acute Category: Medical Code(s): R14.0 - Abdominal distension (gaseous) Plan A/P: 1. Esophageal chest pain/noncardiac chest pain with globus, frequent throat clearance, belching and bloating with history of GERD is the preprocedural diagnosis. The patient will be anesthetized/sedated using MAC sedation. The patient has been seen and examined. Cardiac and lung assessment prior to the examination is stable. Proceed with planned diagnostic EGD.
[2025-05-20 06:20] VITALS: BP 123/69; PULSE 51; RESP 18; O2SAT 97; BMI 29.1
[2025-05-20] MEDS: LACTATED RINGERS 1000ML 1,000 ML 50 ML IV (06:41)
--- NOTE | 2025-05-20 07:04 | P.PNANES_ITS ---
[facility] Disclaimer: The information contained in this section may have been updated after the patient was seen, as this information can be updated by other users. Medical History SOB (shortness of breath) Dizziness History of left heart catheterization (LHC) x3 5 stents in total Chest pain Surgical History History of cardiac cath History of colonoscopy Family History Other Family history of cancer Family history of cardiovascular disease Family history of diabetes mellitus type II Family history of hypertension Social History (Updated 05/20/25 @ 06:21 by Laura Bourne RN) Smoking Status: Never smoker alcohol intake: never substance use type: denies use current occupational status: retired Travel in the last 8 weeks?: Inside the [facility] household members: none housing: house current occupational exposures/hazards: No caffeine: Yes Have you lived/traveled outside US in past 30 days?: No Contact w/someone who lives/traveled outside US past 30 days?: No Exposure to someone with infectious disease in past 14 days?: No Do you have a fever (greater than 100.4 F or 38 C)?: No Have you tested positive for COVID-19?: No Exposed to someone with COVID-19 in past 14 days?: No Do you have a sore throat?: No Do you have a cough?: No Do you have any weakness?: No Are you experiencing any nausea/vomitting?: No Do you have any diarrhea?: No Are you experiencing any unusual bleeding?: No Do you have any muscle aches/pain?: No Do you have any abdominal pain?: No Are you experiencing loss of taste or smell?: No [facility] Anesthesia Checklist Patient Identification Patient Identification: Arm Band and Family Structural Data Admitted From: Home Planned Operative Procedure/s: EGD Consent for Planned Operative Procedure(s) Verified: Yes Verified Documents: Surgical Consent and History and Physical NPO Status Verified Time NPO: 00:00 Additional verifications Patient : No Anesthesia Reactions: No Hx Blood Transfusions: No Blood Transfusion Reaction: No Cephalosporin Allergy: Yes Previous Colonoscopy: Yes Airway Assessment Mallampati Score:: Class II C-Spine Mobility Assessed: Yes TMJ Mobility Assessed: Yes Dentition: Good Dentition Neurological Assessment Level of Consciousness: Awake, Alert, Appropriate and Follows Commands Hx Seizures: No Numbness or tingling in extremities: No Anesthesia Plan Anesthesia Risk discussed: Yes ASA Class: III Anesthesia Type: MAC Preoperative Comments Pre-Operative Comments: Cardiac stents X5. NIDDM.
--- NOTE | 2025-05-20 07:28 | HMH.PROCNOTE ---
[facility] Procedure Note Date: 05/20/25 Time: 07:44 Procedure Note:: Upper Endoscopy Procedure Report: Esophagogastroduodenoscopy with cold biopsies and TTS balloon dilation Endoscopost: Silvano Spears II, MD Referring Physician: German Claudio MD Date of Procedure: May 20, 2025 Equipment: Olympus GIF-1100 standard upper endoscope Sedation: MAC sedation Indications: Mr. Caballero is a 70-year-old gentleman who is here for diagnostic EGD secondary to noncardiac chest pain/esophageal chest pain, choking and throat clearance and GERD. He also has moderate belching and bloating. The patient does state that in the springtime he had these chest pains (nonexertional) that would occur up to 20 times daily. He has had these chest pains for more than 2 decades. 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 Cardiology felt that this was not consistent with ongoing coronary angina. The patient does report occasional heartburn. He is on pantoprazole and famotidine which has helped a little bit. He does report some early satiety. He had some nausea in the spring. He reports no abdominal pain or weight loss. He does have bowel irregularity. He does state that he may not have a bowel movement for a week and then have looser bowel movements or diarrhea. This is his first upper endoscopy. The patient did have a colonoscopy in November 2023 and had a tubular adenoma removed (Cem Villanueva M.D.). Procedure: Prior to the procedure, a history and physical exam was performed, and patient's medications and allergies were reviewed. The risks, benefits and alternatives of the sedation and procedure were discussed with the patient. All questions were answered and informed consent was obtained. The patient was brought to the procedure room. Patient identification and proposed procedure were verified by the physician and the nurse. The patient was placed in a left lateral decubitus position and the scope was passed under direct vision. Throughout the procedure, the patient's blood pressure, pulse, and oxygen saturations were monitored continuously. The upper GI endoscopy was accomplished without difficulty. The patient tolerated the procedure well. Findings: The scope was passed directly into the upper esophagus and advanced to the third portion of the duodenum. A cold biopsy was taken from the second portion of the duodenum for the disaccharidase assay. The post bulbar duodenum, ampulla and duodenal bulb were normal with normal mucosa and conniventes. The scope was withdrawn through a normal duodenal bulb and pylorus into the stomach. There was mild linear antral gastropathy and mild proximal chronic gastritis. Cold biopsies were taken from the antrum and fundus. Upon retroflexion, there was a very small sliding 1 to 2 cm hiatal hernia. The scope was then withdrawn into the esophagus. There was a serrated Z-line and biopsies were taken from the GE junction. There was no evidence of reflux esophagitis, corrugation, rings, webs or strictures. There were tertiary contractions and evidence of moderate esophageal dysmotility. The entire esophagus was dilated to 60 Moldovan/20 mm with a TTS hydrostatic balloon. There was mild resistance at the cricopharyngeus. The remainder of the esophageal mucosa was normal. Impression: 1. Mild cricopharyngeal spasm 2. Nonerosive GERD with moderate esophageal dysmotility and very small sliding 1 to 2 cm hiatal hernia 3. Mild linear antral gastropathy and mild proximal chronic gastritis Plan: I will follow-up the biopsies and disaccharidase assay. I do feel that the patient has functional GERD with intermittent esophageal dyskinesia/spasm causing his intermittent chest pains. I did not see a hypercontractile esophagus. I do feel that most of his symptoms are driven by gas pressure gradients and related to his obstipation. We will discuss treatment options.
[2025-05-20 07:44] VITALS: BP 90/35; PULSE 54; RESP 15; TEMP 36.2; O2SAT 95
[2025-05-20 07:54] VITALS: BP 96/34; PULSE 51; RESP 16; TEMP 36.2; O2SAT 98
[2025-05-20 08:04] VITALS: BP 97/45; PULSE 53; RESP 17; TEMP 36.2; O2SAT 97
[2025-05-20 08:14] VITALS: BP 106/51; PULSE 54; RESP 18; TEMP 36.2; O2SAT 98
[2025-05-20 15:02] LABS: POC Glucose,Bedside 102 gm/dL (70-110)
[2025-05-26 15:28] LABS: Interpretation Notes (.); Lactase 21.52 (>/= 14.0); Maltase 221.35 (>/= 110.0); Palatinase 13.91 (>/= 8.5); Reference Notes (.); Sucrase 60.01 (>/= 25.0)
== END 2025-05-20 08:45 | disposition home or self-care (01) ==
PROVIDERS: PCP Family Medicine; Visit Provider Internal Medicine Gastroenterology
PROC: 0DJ08ZZ Inspection of Upper Intestinal Tract, Via Natural or Artificial Opening Endoscopic (ICD-10-PCS; CPT 43239; principal; 2025-05-20 07:30)
DX: K31.89 Other diseases of stomach and duodenum (principal); J39.2 Other diseases of pharynx; K29.50 Unspecified chronic gastritis without bleeding; K44.9 Diaphragmatic hernia without obstruction or gangrene; K22.4 Dyskinesia of esophagus; K21.9 Gastro-esophageal reflux disease without esophagitis; R07.89 Other chest pain; R09.89 Other specified symptoms and signs involving the circulatory and respiratory systems; I25.10 Atherosclerotic heart disease of native coronary artery without angina pectoris; Z95.5 Presence of coronary angioplasty implant and graft; Z86.0101 Personal history of adenomatous and serrated colon polyps; Z79.84 Long term (current) use of oral hypoglycemic drugs; Z79.899 Other long term (current) drug therapy; Z88.8 Allergy status to other drugs, medicaments and biological substances; Z88.0 Allergy status to penicillin; Z91.013 Allergy to seafood
CPT/HCPCS: 43239; 43249; 82657; 82962; 88305; C1726; J2003; J2704; J7120

== ENCOUNTER 2025-09-11 07:16 | Outpatient (CLI) | payer MEDICARE, OTHER, SELFPAY ==
--- OUTSIDE RECORDS SUMMARY | 2024-03-18 04:10 | XMS_ITS ---
Author Organization [facility] Address [address] [place] [phone] Care Team Providers Care Organizational Psychologist Name Role Phone Gibran Bob Primary Care Provider Wyatt Claudio Unavailable [phone] Allergies Allergen (clinical drug ingredient) Drug/Non Drug Allergy documented on EMR Reaction Allergy Type Onset Date Status Penicillin Unknown Drug Allergy Active Shellfish (FN) Shellfish-derived Products Unknown Drug Allergy Active REASON FOR VISIT 6 months Medications Medication SIG (Take, Route, Frequency, Duration) Notes Start Date End Date Status glipiZIDE 5 MG 1 tablet 30 minutes before breakfast Orally Once a day Active metFORMIN HCl 1000 MG 1 tab(s) orally once daily Active Simvastatin 80 MG 1 tab(s) orally once a day (at bedtime) Active hydroCHLOROthiazide 25 MG 1 tab(s) orall y once a day Active Bisoprolol Fumarate 5 MG 1 tab(s) orally once a day Active Effient 10 MG 1 tab(s) orally once a day Active Losartan Potassium 25 MG 1 tab(s) orally once a day Active Isosorbide Mononitrate ER 60 MG 1 tab(s) orally 2 times a day Active Aspirin Low Dose 81 MG 1 tab(s) orally once a day Active Bisoprolol-hydroCHLOROthiazi d e 5-6.25 MG 1 tab(s) orally twice a day Unknown Ranolazine ER 500 MG 1.5 tabs orally once daily Not-Taking amLODIPine Besylate 5 MG 1 tab(s) orally once a day Not-Taking Gabapentin 100 MG 1-3 capsule Orally At Bed Time 03/04/2024 Active Accu-Chek Fe Plus 1 STRIP ONCE DAILY 02/14/2021 Active Pantoprazole Sodium 40 MG 1 tab(s) orall y once a day Active Ezetimibe 10 MG 1 tablet Orally Once a day; Duration: 30 day(s) Active glipiZIDE-metFORMIN HCl 2.5-500 MG 2 tab(s) orally once daily (evening) Not-Taking Vital Signs Blood pressure systolic 112 mm Hg 03/18/20 24 Blood pressure diastolic 58 mm Hg 024 Heart Rate 67 /min 03/18/2024 Height 72 in 03/18/2024 Weight 228.4 lbs 03/18/2024 BMI 30.97 kg/m2 03/18/2024 Encounters Encounter Location Date Provider Diagnosis [facility] [address] [facility] [address] [place], [place] [id number] 03/18/2024 R German Claudio Hip pain M25.559 ; Essential hypertension I10 ; Type 2 diabetes mellitus without complication E11.9 ; Dyslipidemia E78.5 ; Chronic kidney disease, stage 3a N18.31 ; Coronary artery disease without angina pectoris, unspecified vessel or lesion type, unspecified whether [place] or transplanted heart I25.10 ; Encounter for immunization Z23 and GERD (gastroesophageal reflux disease) K21.9 Assessments Encounter Date Diagnosis (ICD Code) Assessment Notes Treatment Notes Treatment Clinical Notes Section Notes 03/18/2024 Hip pain (ICD-10 - M25.559) 03/18/2024 Essential hypertension (ICD-10 - I10) 03/18/2024 Type 2 diabetes mellitus without complication (ICD-10 - E11.9) 03/18/2024 Dyslipidemia (ICD-10 - E78.5) 03/18/2024 Chronic kidney disease, stage 3a (ICD-10 - N18.31) 03/18/2024 Coronary artery disease without angina pectoris, unspecified vessel or lesion type, unspecified whether [place] or transplanted heart (ICD-10 - I25.10) 03/18/2024 Encounter for immunization (ICD-10 - Z23) 03/18/2024 GERD (gastroesophageal reflux disease) (ICD-10 - K21.9) Plan Of Treatment Medication Medication Name Sig Start Date Stop Date Notes glipiZIDE 5 MG 1 tablet 30 minutes before breakfast Orally Once a day metFORMIN HCl 1000 MG 1 tab(s) orally once daily Simvastatin 80 MG 1 tab(s) orally once a day (at bedtime) hydroCHLOROthiazide 25 MG 1 tab(s) orally once a day Bisoprolol Fumarate 5 MG 1 tab(s) orally once a day Effient 10 MG 1 tab(s) orally once a day Losartan Potassium 25 MG 1 tab(s) orally once a day Isosorbide Mononitrate ER 60 MG 1 tab(s) orally 2 times a day Aspirin Low Dose 81 MG 1 tab(s) orally once a day Next Appt Details Follow Up: 6 Months, Reason: Provider Name:Wyatt Galdamez et, 03/11/2026 09:30:00 AM, [address], [address], [place], [id number], Progress Notes * CABALLERODougieDOB: 7 (70 yo M)Acc No.[id number]:03/18/2024 Progress Notes Patient: Dougie FONTAINE Provider: Wyatt Claudio M.D. :1955 A ge:69 Y S ex:Male Date:03/18/2024 Address:[address] [place] [address], [place], [id number] Pcp:Gibran Bob Subjective: * Chief Complaints: * 1 . 6 months. * HPI: H PI: Patient is here today for a scheduled 6 month c heck up a nd a Medicare Annual Wellness Visit. Pt is not fasting today but had recent labs per his manager compliance.. C ardiology: He continues to follow with cardiology. No change in his regimen. E ndocrinology: He is not checking his blood sugar regularly. His recent A1c was elevated. He admits to some noncompliance with diet and has gained weight during the winter months. He is now more active has lost some weight. * ROS: D ERMATOLOGY: no R jordyn. n o H sushil. G ASTROENTEROLOGY: no N ausea. n o V omiting. U ROLOGY: no D ifficulty urinating. n o B lood in urine. 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 Swanson, History of sleep apnea -failed CPAP. * Surgical History: F ractured Nose Repair Nov & Apr 2008, Colonoscopy x 3 removed pylps Aug 2008, Heart Cath, Stent placement- Dr. Swanson February, Colonoscopy/Dr. Smith/ normal 2012, Heart cath/ [place]/ no intervention 04/2020, Colonoscopy 11/2023. * Hospitalization/Major Diagno stic Procedure: C olonoscopy - Bleeding Aug 2008, Heart Cath, Stent placement- [place] February 2016, Heart Cath, stents placement (3) November 2017. * Family History: F ather: 84 yrs, diagnosed with Heart Disease. M other: 72 yrs, diagnosed with Diabetes, Hypertension, Heart Disease, Mental Illness. C hildren: alive. S iblings: diagnosed with Diabetes, Heart Disease, Cancer. 1 brother(s) , 4 sister(s) . 1 son(s) - healthy. . Brother - , heart disease (53)- , \npancreas, liver, bone cancer (61). * Social History: C URRENT TOBACCO USE S moking Status: P atient does NOT smoke, F ormer Smoker:?No. 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 * Medications: T aking Effient 10 MG Tablet 1 tab(s) orally once a day , Taking Aspirin Low Dose 81 MG Tablet Delayed Release 1 tab(s) orally once a day , Taking Isosorbide Mononitrate ER 60 MG Tablet Extended Release 24 Hour 1 tab(s) orally 2 times a day , Taking Losartan Potassium 25 MG Tablet 1 tab(s) orally once a day , Taking Bisoprolol Fumarate 5 MG Tablet 1 tab(s) orally once a day , Taking hydroCHLOROthiazide 25 MG Tablet 1 tab(s) orally once a day , Taking metFORMIN HCl 1000 MG Tablet 1 tab(s) orally once daily , Taking Simvastatin 80 MG Tablet 1 tab(s) orally once a day (at bedtime) , Taking Ezetimibe 10 MG Tablet 1 tablet Orally Once a day , Taking glipiZIDE 5 MG Tablet 1 tablet 30 minutes before breakfast Orally Once a day , Taking Pantoprazole Sodium 40 MG Tablet Delayed Release 1 tab(s) orally once a day , Taking Accu-Chek Fe Plus 1 STRIP ONCE DAILY , Taking Gabapentin 100 MG Capsule 1-3 capsule Orally At Bed Time , Not-Taking glipiZIDE-metFORMIN HCl 2.5-500 MG Tablet 2 tab(s) orally once daily (evening) , Not-Taking amLODIPine Besylate 5 MG Tablet 1 tab(s) orally once a day , Not-Taking Ranolazine ER 500 MG Tablet Extended Release 12 Hour 1.5 tabs orally once daily , Discontinued Rosuvastatin Calcium 40 MG Tablet 1 tablet Orally Once a day , Unknown Bisoprolol-hydroCHLOROthiazide 5-6.25 MG Tablet 1 tab(s) orally twice a day , Medication List reviewed and reconciled with the patient * Allergies: P enicillin, Shellfish-derived Products. Objective: * Vitals: W t:228.4, Temp:97.7, BP:112/58, HR:67, O2 Sat:98% on RA, Nurse:SARANYA, Ht: 72, BMI:30.97. * Examination: C ardiology: General Appearance: N AD. Moves slowly from chair onto exam table. C arotid upstroke: n ormal, no bruits. H eart sounds: R RR, normal S1, S2. M urmur, click , gallop: n one. L ungs: c lear, no rales or wheezes. A bdomen: p ositive BS, soft, nontender. E xtremities: T race ankle edema. . ? Assessment: * Assessment: 1. H ip pain - M25.559 (Primary) 2 . E ssential hypertension - I10 ? 3 . T ype 2 diabetes mellitus without complication - E11.9 4 . D yslipidemia - E78.5 5 . C hronic kidney disease, stage 3a - N18.31 6 . C oronary artery disease without angina pectoris, unspecified vessel or lesion type, unspecified whether [place] or transplanted heart - I25.10 7 . E ncounter for immunization - Z23 8 . G ERD (gastroesophageal reflux disease) - K21.9 Plan: * Treatment: 2. T ype 2 diabetes mellitus without complication Continue metFORMIN HCl Tablet, 1000 MG, 1 tab(s), orally, once daily; C ontinue glipiZIDE Tablet, 5 MG, 1 tablet 30 minutes before breakfast, Orally, Once a day. 3. D yslipidemia Continue Simvastatin Tablet, 80 MG, 1 tab(s), orally, once a day (at bedtime). 4. C oronary artery disease without angina pectoris, unspecified vessel or lesion type, unspecified whether [place] or transplanted heart Continue Effient Tablet, 10 MG, 1 tab(s), orally, once a day; C ontinue Aspirin Low Dose Tablet Delayed Release, 81 MG, 1 tab(s), orally, once a day; C ontinue Isosorbide Mononitrate ER Tablet Extended Release 24 Hour, 60 MG, 1 tab(s), orally, 2 times a day. * Procedure Codes: 9 4760 PULSE OX, 3051F HG A1C>EQUAL 7.0%<8.0% * Follow Up: 6 Months * Images: Billing Information: * Visit Code: 05894 Office Visit, Est Pt., Level 3. * Procedure Codes: 02736 PULSE OX. 3051F HG A1C>EQUAL 7.0%<8.0%. * Electronic signature of Wyatt Claudio MD on 09/11/2025 at 07:20 AM EST Sign off status: Pending * Provider: Wyatt Claudio M.D. Date: 0 03/18/2024 Generated for Iraj garcia/Ousmane/Aidasmitting on: 1 11/12/2024 07:20 AM EST History and Physical Notes * HPI (History of Present Illness) Category Sub-Category Detail Notes Category Not es HPI Patient is here today for a counts include [facility] beds at the [facility] duled 6 month check up and a Medicare Annual Wellness Visit. Pt is not fasting today but had recent labs per his manager compliance. Examination Category Sub-Category Detail Notes Category Not es Cardiology Lungs: clear, no rales or wheezes Heart sounds: RRR, normal S1, S2 Abdomen: positive BS, soft, n ontender Carotid upstroke: normal, no bruits Extremities: Trace ankle edema. Murmur, click , gallop: none General Appearance: NAD. Moves slowly fr om chair onto exam table
--- OUTSIDE RECORDS SUMMARY | 2024-09-09 05:15 | XMS_ITS ---
Author Organization [facility] Address [address] [facility] [address] [place] [id number] Care Team Providers Care Higher Education Administrator Name Role Phone Maxi Bobian Primary Care Provider [phone] Wyatt Claudio [phone] Allergies Allergen (clinical drug ingredient) Drug/Non Drug Allergy documented on EMR Reaction Allergy Type Onset Date Status Penicillin Unknown Drug Allergy Active Shellfish (FN) Shellfish-derived Products Unknown Drug Allergy Active Results Component Value Reference Range Notes CBC Venipuncture (in house) Reviewed date:09/18/2024 08:38:06 AM Interpretation:Normal Performing Lab: Notes/Report: Normal wbc 5.6 3.5 - 10 lymph 21.9 15 - 50 mid 6.8 2 - 15 gran 71.3 35 - 80 rbc 4.05 3.5 - 5.5 hgb 12.8 11.5 - 16.5 hct 37.0 35 - 55 mcv 91.4 75 - 100 mch 31.6 25 - 35 mchc 34.6 31 - 38 platlet 150 100 - 400 Glycohemoglobin A1c (in hous e) Reviewed date:09/18/2024 08:38:06 AM Interpretation:7.0% Performing Lab: Notes/Report: 7.0% glycohemoglobin 7.0% 5 - 6.5 % P-Comprehensive Metabolic Pa sujey (CMP) Reviewed date:09/18/2024 08:38:06 AM Interpretation:gluc 115, bun 28, Cr 1.41, gfr 54 Performing Lab: Notes/Report: Test performed by [employer] [employer] [facility] , [address], [place] [address] Maxx Koch MD, Graduation Coach CLIA: [id number] Sodium 141 135-145 mmol/L Potassium 5.0 3.5-5.3 mmol/L Chloride 104 97-108 mmol/L CO2 23 22-32 mmol/L Glucose 115 65-99 mg/dL BUN 28 8-23 mg/dL Creatinine 1.41 0.70-1.30 mg/dL Calcium 9.4 8.6-10.4 mg/dL eGFR by Creatinine 54 >59 mL/min/1.73m2 Protein 7.2 6.0-8.3 g/dL Albumin 4.7 3.5-5.3 g/dL Alkaline Phosphatase 75 40-129 IU/L ALT (SGPT) 26 <5-55 IU/L AST (SGOT) 19 <5-46 IU/L Bilirubin, Total 0.6 <0.2-1.2 mg/dL A/G Ratio 1.9 1.1-2.5 P-PSA Reviewed date:09/18/2024 08:38:06 AM Interpretation:Normal Performing Lab: Notes/Report: Test performed by [facility] [address] [place], [place] [address] [place] , [address], [place] [address] Mxax Koch MD, Graduation Coach CLIA: [id number] PSA 2.09 <4.00 ng/mL Please note this is an ultrasensitive PSA assay with a lower limit of detection of 0.014 ng/mL. This test is performed by the Joyce ECLIA methodology. Values obtained with different assay methods or kits cannot be directly compared. P-Microalbumin/Creatinine, R andom Urine Sample Reviewed date:09/18/2024 08:38:06 AM Interpretation:Normal Performing Lab: Notes/Report: Test performed by [facility] [address] [place], [place] [address] [place] , [address], [place] [address] Maxx Koch MD, Graduation Coach CLIA: [id number] Albumin/Creatinine Ratio, Urine 6 0-30 ug/m g Microalbumin, Urine, Random 0.7 Creatinine, Urine 120.8 REASON FOR VISIT 6 months, Needs labs with PSA & flu vaccine Medications Medication SIG (Take, Route, Frequency, Duration) Notes Start Date End Date Status Bisoprolol-hydroCHLOROthiazi d e 5-6.25 MG 1 tab(s) orally twice a day Unknown Losartan Potassium 25 MG 1 tab(s) orally once a day Active Isosorbide Mononitrate ER 60 MG 1 tab(s) orally 2 times a day Active Aspirin Low Dose 81 MG 1 tab(s) orally once a day Active Effient 10 MG 1 tab(s) orally once a day Active Ranolazine ER 500 MG 1.5 tabs orally once daily Not-Taking Gabapentin 100 MG 1-3 capsule Orally At Bed Time 03/04/2024 Active Accu-Chek Fe Plus 1 STRIP ONCE DAILY 02/14/2021 Active Pantoprazole Sodium 40 MG 1 tab(s) orall y once a day Active Ezetimibe 10 MG 1 tablet Orally Once a day; Duration: 30 day(s) Active Simvastatin 80 MG 1 tab(s) orally once a day (at bedtime) Active amLODIPine Besylate 5 MG 1 tab(s) orally once a day Not-Taking glipiZIDE-metFORMIN HCl 2.5-500 MG 2 tab(s) orally once daily (evening) Not-Taking glipiZIDE 5 MG 1 tablet 30 minutes before breakfast Orally Once a day Active metFORMIN HCl 1000 MG 1 tab(s) orally once daily Active hydroCHLOROthiazide 25 MG 1 tab(s) orall y once a day Active Bisoprolol Fumarate 5 MG 1 tab(s) orally once a day Active Immunizations Vaccine Route Administration Date Status Comme nts Fluzone High Dose (65yr and older) IM Intramuscular 09/09/2024 Administered Problems Problem Type SNOMED Code ICD Code Onset Dates Problem Status W/U Status Risk Notes Problem Peripheral circulatory disorder associated with diabetes mellitus (585783651) Type 2 diabetes mellitus with other circulatory complication (E11.59) Active confirmed Problem Hyperlipidemia due to type 2 diabetes mellitus (disorder) (430489750848775) Hyperlipidemia associated with type 2 diabetes mellitus (E11.69) Active confirmed Problem Diabetic renal disease (553306576) Type 2 diabetes mellitus with diabetic chronic kidney disease (E11.22) Active confirmed Vital Signs Blood pressure systolic 128 mm Hg 09/09/20 24 Blood pressure diastolic 70 mm Hg 024 Heart Rate 49 /min 09/09/2024 Height 72 in 09/09/2024 Weight 228.2 lbs 09/09/2024 BMI 30.95 kg/m2 09/09/2024 Encounters Encounter Location Date Provider Diagnosis Hernandez [address] [facility] [address] [place], [place] [id number] 09/09/2024 Wyatt Claudio Type 2 diabetes stu itus with other circulatory complication E11.59 ; Hyperlipidemia associated with type 2 diabetes mellitus E11.69 ; Type 2 diabetes mellitus with diabetic chronic kidney disease E11.22 ; Essential hypertension I10 ; Type 2 diabetes mellitus without complication E11.9 ; Dyslipidemia E78.5 ; Chronic kidney disease, stage 3a N18.31 ; Coronary artery disease without angina pectoris, unspecified vessel or lesion type, unspecified whether seminole or transplanted heart I25.10 ; Encounter for immunization Z23 ; GERD (gastroesophageal reflux disease) K21.9 and Screening for prostate cancer Z12.5 Assessments Encounter Date Diagnosis (ICD Code) Assessment Notes Treatment Notes Treatment Clinical Notes Section Notes 09/09/2024 Type 2 diabetes mellitus with other circulatory complication (ICD-10 - E11.59) 09/09/2024 Hyperlipidemia associated with type 2 diabetes mellitus (ICD-10 - E11.69) 09/09/2024 Type 2 diabetes mellitus with diabetic chronic kidney disease (ICD-10 - E11.22) 09/09/2024 Essential hypertension (ICD-10 - I10) 09/09/2024 Type 2 diabetes mellitus without complication (ICD-10 - E11.9) 09/09/2024 Dyslipidemia (ICD-10 - E78.5) 09/09/2024 Chronic kidney disease, stage 3a (ICD-10 - N18.31) 09/09/2024 Coronary artery disease without angina pectoris, unspecified vessel or lesion type, unspecified whether seminole or transplanted heart (ICD-10 - I25.10) 09/09/2024 Encounter for immunization (ICD-10 - Z23) 09/09/2024 GERD (gastroesophageal reflux disease) (ICD-10 - K21.9) 09/09/2024 Screening for prostate cancer (ICD-10 - Z12.5) Plan Of Treatment Medication Medication Name Sig Start Date Stop Date Notes Losartan Potassium 25 MG 1 tab(s) orally once a day Isosorbide Mononitrate ER 60 MG 1 tab(s) orally 2 times a day Aspirin Low Dose 81 MG 1 tab(s) orally once a day Effient 10 MG 1 tab(s) orally once a day Simvastatin 80 MG 1 tab(s) orally once a day (at bedtime) glipiZIDE 5 MG 1 tablet 30 minutes before breakfast Orally Once a day metFORMIN HCl 1000 MG 1 tab(s) orally once daily hydroCHLOROthiazide 25 MG 1 tab(s) orally once a day Bisoprolol Fumarate 5 MG 1 tab(s) orally once a day Next Appt Details Follow Up: 6 Months, Reason: Provider Name:Wyatt Roberts, 03/11/2026 09:30:00 AM, [address] [facility] [address], [address], [place], [place], [id number], Progress Notes * Dougie CABALLERODOB: 7 (70 yo M)Acc No.[id number]:09/09/2024 Progress Notes Patient: Dougie FONTAINE Provider: Wyatt Claudio M.D. :1955 A ge:69 Y S ex:Male Date:09/09/2024 Address:[address] [place] [address], [place] [id number] Pcp:Gibran Bob Subjective: * Chief Complaints: * 1 . 6 months. 2. Needs labs with PSA & flu vaccine. * HPI: E ndocrinology: Maintenance P t presents today for a 6 month check up. Pt is fasting today. Pt sts that he has no new concerns or complaints at this time. E NT/respiratory: Notes intermittent seasonal allergy symptoms. * ROS: D ERMATOLOGY: no R jordyn. [...] Bleeding Aug 2008, Heart Cath, Stent placement- [place] February 2016, Heart Cath, stents placement (3) November 2017. * Family History: F ather: 84 yrs, diagnosed with Heart Disease. M other: 72 yrs, diagnosed with Diabetes, Hypertension, Heart Disease, Mental Illness. C julioen: alive. S iblings: diagnosed with Heart Disease, Cancer, Diabetes. 1 brother(s) , 4 sister(s) . 1 son(s) - healthy. . Brother - , heart disease (53)- , \npancreas, liver, bone cancer (61). * Social History: C URRENT TOBACCO USE S moking Status: P atient does NOT smoke, F ormer Smoker:?No. 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 * Medications: T aking Ezetimibe 10 MG Tablet 1 tablet Orally Once a day , Taking Pantoprazole Sodium 40 MG Tablet Delayed Release 1 tab(s) orally once a day , Taking Accu-Chek Fe Plus 1 STRIP ONCE DAILY , Taking Gabapentin 100 MG Capsule 1-3 capsule Orally At Bed Time , Taking Effient 10 MG Tablet 1 tab(s) orally [...] tab(s) orally once a day , Taking Simvastatin 80 MG Tablet 1 tab(s) orally once a day (at bedtime) , Taking metFORMIN HCl 1000 MG Tablet 1 tab(s) orally once daily , Taking glipiZIDE 5 MG Tablet 1 tablet 30 minutes before breakfast Orally Once a day , Not-Taking glipiZIDE-metFORMIN HCl 2.5-500 MG Tablet 2 tab(s) orally once daily (evening) , Not-Taking amLODIPine Besylate 5 MG Tablet 1 tab(s) orally once a day , Not-Taking Ranolazine ER 500 MG Tablet Extended Release 12 Hour 1.5 tabs orally once daily , Unknown Bisoprolol-hydroCHLOROthiazide 5-6.25 MG Tablet 1 tab(s) orally twice a day , Medication List reviewed and reconciled with the patient * Allergies: P enicillin, Shellfish-derived Products. Objective: * Vitals: W t:228.2, Temp:97.6, BP:128/70, HR:49, Nurse:SARANYA, Ht: 72, BMI:30.95. * Examination: C ardiology: General Appearance: p leasant, NAD. . C arotid upstroke: n ormal, no bruits. H eart sounds: R RR, normal S1, S2. M urmur, click , gallop:?none. L ungs: c lear, no rales or wheezes. A bdomen: p ositive BS, soft, nontender. E xtremities: T race ankle edema. . Assessment: * Assessment: 1. T ype 2 diabetes mellitus with other circulatory complication - E11.59 (Primary) ?2. 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 E ssential hypertension - I10 5 . T ype 2 diabetes mellitus without complication - E11.9 6 . D yslipidemia - E78.5 7 . C hronic kidney disease, stage 3a - N18.31 8 . C oronary artery disease without angina pectoris, unspecified vessel or lesion type, unspecified whether seminole or transplanted heart - I25.10 ?9. E ncounter for immunization - Z23 1 0. G ERD (gastroesophageal reflux disease) - K21.9 1 1. S creening for prostate cancer - Z12.5 Plan: * Treatment: Value Reference Range A lbumin/Creatinine Ratio, Urine 6 0-30 - ug /mg * C reatinine, Urine 120.8 - mg/dL * M icroalbumin, Urine, Random 0.7 - mg/dL * Wyatt Claudio 09/18/2024 8:37:56 AM >See phone encounter ?LAB: Glycohemoglobin A1c (in house) (Collection Date & Time - 09/09/2024)? 7.0%* Value Reference Range g lycohemoglobin 7.0% 5 - 6.5 % * Rachel Roy 09/09/2024 12: 23:06 PM > Wyatt Claudio 09/18/2024 8:37:56 AM >See phone encounter 2.?Essential hypertension? Continue Losartan Potassium Tablet, 25 MG, 1 tab(s), orally, once a day;?Continue Bisoprolol Fumarate Tablet, 5 MG, 1 tab(s), orally, once a day;?Continue hydroCHLOROthiazide Tablet, 25 MG,1 tab(s), orally, once a day.?LAB: P-Comprehensive Metabolic Panel (CMP) (Collection Date & Time - 09/09/2024 09:49 AM)?gluc 115, bun 28, Cr 1.41, gfr 54* Value Reference Range A /G Ratio 1.9 1.1-2.5 - * A lbumin 4.7 3.5-5.3 - g/dL * A lkaline Phosphatase 75 40-129 - IU/L * A LT (SGPT) 26 <5-55 - IU/L * A ST (SGOT) 19 <5-46 - IU/L * B ilirubin, Total 0.6 <0.2-1.2 - mg/dL * B UN 28 H 8-23 - mg/dL * C alcium 9.4 8.6-10.4 - mg/dL * C hloride 104 97-108 - mmol/L * C O2 23 22-32 - mmol/L * C reatinine 1.41 H 0.70-1.30 - mg/dL * G lucose 115 H 65-99 - mg/dL * P otassium 5.0 3.5-5.3 - mmol/L * S odium 141 135-145 - mmol/L * P rotein 7.2 6.0-8.3 - g/dL * e GFR by Creatinine 54 L >59 - mL/min/1.73m2 * Wyatt Claudio 09/18/2024 8:37:56 AM >See phone encounter ?LAB: CBC Venipuncture (in house) (Collection Date & Time - 09/09/2024)? Normal* Value Reference Range w bc 5.6 3.5 - 10 * l ymph 21.9 15 - 50 * m id 6.8 2 - 15 * g ran 71.3 35 - 80 * r bc 4.05 3.5 - 5.5 * h gb 12.8 11.5 - 16.5 * h ct 37.0 35 - 55 * m cv 91.4 75 - 100 * m ch 31.6 25 - 35 * m chc 34.6 31 - 38 * p latlet 150 100 - 400 * Rachel Roy 09/09/2024 12: 22:29 PM > Wyatt Claudio 09/18/2024 8:37:56 AM >See phone encounter 3.?Type 2 diabetes mellitus without complication? Continue metFORMIN HCl Tablet, 1000 MG, 1 tab(s), orally, once daily;?Continue glipiZIDE Tablet, 5 MG, 1 tablet 30 minutes before breakfast, Orally, Once a day.??4.?Dyslipidemia? Continue Simvastatin Tablet, 80 MG, 1 tab(s), orally, once a day (at bedtime).?? 5.?Coronary artery disease without angina pectoris, unspecified vessel or lesion type, unspecified whether seminole or transplanted heart? Continue Effient Tablet, 10 MG, 1 tab(s), orally, once a day;?Continue Aspirin Low Dose TabletDelayed Release, 81 MG, 1 tab(s), orally, once a day;?Continue Isosorbide Mononitrate ER Tablet Extended Release 24 Hour, 60 MG, 1 tab(s), orally, 2 times a day.??6.?Screening for prostate cancer?LAB: P-PSA (Collection Date & Time - 09/09/2024 09:49 AM)?Normal* Value Reference Range P SA 2.09 <4.00 - ng/mL * Wyatt Claudio 09/18/2024 8:37:56 AM >See phone encounter * Immunizations: Fluzone High Dose (65yr and older) : 0.5 mL (Route: Intramuscular) given by Rachel Roy on Left Arm (Encounter for immunization) * Procedure Codes: G 2211 Complex e/[place], [address] CBC WITH AUTO DIFF, 81780 GLYCATED HEMOGLOBIN TEST, Modifiers: QW * Follow Up: 6 Months * Images: Billing Information: * Visit Code: 86341 Office Visit, Est Pt., Level 4. * Procedure Codes: G2211 Complex e/[place]. [address] CBC WITH AUTO DIFF. 84629 GLYCATED HEMOGLOBIN TEST. Modifiers: QW * Electronic signature of Wyatt Claudio MD on 09/11/2025 at 07:20 AM EST Sign off status: Pending * Provider: Wyatt Claudio M.D. Date: 11/10/2023 Generated for Printi ng/Sarmadg/eTransmitting on: 11/12/2024 07:20 AM EST History and Physical Notes * HPI (History of Present Illness) Category Sub-Category Detail Notes Category Not es [facility]ology [facility]. Pt is fasting today. Pt sts that he has no new concerns or complaints at this time Examination Category Sub-Category Detail Notes Category Not es Cardiology Lungs: clear, no rales or wheezes HEENT: Heart sounds: RRR, normal S1, S2 Abdomen: positive BS, soft, n ontender Carotid upstroke: normal, no bruits Extremities: Trace ankle edema. Murmur, click , gallop: none General Appearance: pleasant, NAD.
--- OUTSIDE RECORDS SUMMARY | 2025-03-10 04:30 | XMS_ITS ---
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 Name Role Phone Gibran Bob Primary Care Provider Wyatt Claudio [phone] Allergies Allergen (clinical drug ingredient) Drug/Non Drug Allergy documented on EMR Reaction Allergy Type Onset Date Status Penicillin Unknown Drug Allergy Active Shellfish (FN) Shellfish-derived Products Unknown Drug Allergy Active Results Component Value Reference Range Notes Glycohemoglobin A1c (in hous e) Reviewed date:03/15/2025 09:51:30 PM Interpretation:6.5% Performing Lab: Notes/Report: 6.5% glycohemoglobin 6.5% 5 - 6.5 % P-Comprehensive Metabolic Pa sujey (CMP) Reviewed date:03/15/2025 09:51:30 PM Interpretation:FBS 120 Performing Lab: Notes/Report: Test performed by [facility] [address] [place] [address] , [address], [place] [address] Maxx Koch MD, Nurse Private Duty CLIA: [id number] Sodium 143 135-145 mmol/L Potassium 4.9 3.5-5.3 mmol/L Chloride 106 97-108 mmol/L CO2 26 22-32 mmol/L Glucose 120 65-99 mg/dL BUN 17 8-23 mg/dL Creatinine 1.25 0.70-1.30 mg/dL Calcium 9.2 8.6-10.4 mg/dL eGFR by Creatinine 63 >59 mL/min/1.73m2 Protein 6.8 6.0-8.3 g/dL Albumin 4.6 3.5-5.3 g/dL Alkaline Phosphatase 63 40-129 IU/L ALT (SGPT) 15 <5-55 IU/L AST (SGOT) 17 <5-46 IU/L Bilirubin, Total 0.5 <0.2-1.2 mg/dL A/G Ratio 2.1 1.1-2.5 P-Lipid Panel Reviewed date:03/15/2025 09:51:30 PM Interpretation:LDL 40 Performing Lab: Notes/Report: CLIA: [id number] Maxx Koch MD, Nurse Private Duty [address] [place] [address] , [address], [place] [address] Test performed by [facility], [facility] Cholesterol 107 <200 mg/dL Triglycerides 152 <150 mg/dL HDL Cholesterol 37 >39 mg/dL Cholesterol / HDL Ratio 2.89 0.00-4.99 Ratio Non-HDL Cholesterol 70 <130 mg/dL LDL Cholesterol (Calculation) 40 <130 mg/dL LDL Cholesterol Levels* Less than 100 mg/dL Optimal 100 to 129 mg/dL Near Optimal/ Above Optimal 130 to 159 mg/dL Borderline High 160 to 189 mg/dL High 190 mg/dL and above Very High * Categories as recommended by the 2004 ATPIII guidelines LDL/HDL Ratio 1.1 <3.3 Ratio LDL Cholesterol Patient History Test Date: 03/10/2025 LDL Results: 40 Units: mg/dL % Change: - P-Microalbumin/Creatinine, R andom Urine Sample Reviewed date:03/15/2025 09:51:30 PM Interpretation:normal Performing Lab: Notes/Report: CLIA: [id number] Maxx Koch MD, Nurse Private Duty [facility] , [address], [place] [address] Test performed by [facility], [facility] Albumin/Creatinine Ratio, Urine 4 0-30 ug/m g Microalbumin, Urine, Random 0.8 Creatinine, Urine 187.1 Reason For Referral Reason Refer to Dr. Thaddeus Osorio with [facility]iology to establish care; hx of ASCVD Diagnosis 1 Coronary artery dise ase without angina pectoris, unspecified vessel or lesion type, unspecified whether enterprise or transplanted heart (I25.10) Referral Organization [facility] Referring Provider First Name Wyatt Porter Referring Provider Last Name Shanon Referring Provider Speciality [facility] Referred Provider Cardiology, . Referred Provider Specialty Cardiovascul ar Disease General Notes Lourdes Gregory 2024 11:10:00 AM > faxed to Cardiology Referral Priority Routine REASON FOR VISIT 6 month checkup and an Annual Wellness Vist, due for diabetic eye exam Medications Medication SIG (Take, Route, Frequency, Duration) Notes Start Date End Date Status Ranolazine ER 500 MG 1.5 tabs orally once daily Not-Taking Bisoprolol-hydroCHLOROthiazi d e 5-6.25 MG 1 tab(s) orally twice a day Unknown glipiZIDE-metFORMIN HCl 2.5-500 MG 2 tab(s) orally once daily (evening) Not-Taking amLODIPine Besylate 5 MG 1 tab(s) orally once a day Not-Taking Gabapentin 100 MG 1-3 capsule Orally At Bed Time 12/02/2024 Active Simvastatin 80 MG 1 tab(s) orally once a day (at bedtime) Active hydroCHLOROthiazide 25 MG 1 tab(s) orall y once a day Active Bisoprolol Fumarate 5 MG 1 tab(s) orally once a day Active glipiZIDE 5 MG 1 tablet 30 minutes before breakfast Orally Once a day Active metFORMIN HCl 1000 MG 1 tab(s) orally once daily Active Isosorbide Mononitrate ER 60 MG 1 tab(s) orally 2 times a day Active Ezetimibe 10 MG 1 tablet Orally Once a day; Duration: 30 day(s) Active Losartan Potassium 25 MG 1 tab(s) orally once a day Active Pantoprazole Sodium 40 MG 1 tab(s) orall y once a day Active Accu-Chek Fe Plus 1 STRIP ONCE DAILY 02/14/2021 Active Aspirin Low Dose 81 MG 1 tab(s) orally once a day Active Furosemide 40 MG 0.25 tablet Orally Once a day Active Effient 10 MG 1 tab(s) orally once a day Active Famotidine 20 MG 1 tablet at bedtime as needed Orally Once a day Active Problems Problem Type SNOMED Code ICD Code Onset Dates Problem Status W/U Status Risk Notes Problem Hypertensive heart AND chronic kidney disease with congestive heart failure (09291550989200) Hypertensive heart and chronic kidney disease with heart failure and stage 1 through stage 4 chronic kidney disease, or unspecified chronic kidney disease (I13.0) Active confirmed Problem Body mass index 30+ - obesity (781313247) BMI 30.0-30.9,adult (Z68.30) Active confirmed Vital Signs Blood pressure systolic 140 mm Hg 03/10/20 25 Blood pressure diastolic 80 mm Hg 025 Heart Rate 57 /min 03/10/2025 Height 72 in 03/10/2025 Weight 222.8 lbs 03/10/2025 BMI 30.21 kg/m2 03/10/2025 Encounters Encounter Location Date Provider Diagnosis [facility] [address], [place] [id number] 03/10/2025 Wyatt Claudio Adult general medica l examination Z00.00 ; Type 2 diabetes mellitus with other circulatory complication E11.59 ; Hyperlipidemia associated with type 2 diabetes mellitus E11.69 ; Type 2 diabetes mellitus with diabetic chronic kidney disease E11.22 ; Essential hypertension I10 ; Type 2 diabetes mellitus without complication E11.9 ; Dyslipidemia E78.5 ; Chronic kidney disease, stage 3a N18.31 ; Coronary artery disease without angina pectoris, unspecified vessel or lesion type, unspecified whether enterprise or transplanted heart I25.10 ; GERD (gastroesophageal reflux disease) K21.9 ; Hypertensive heart and chronic kidney disease with heart failure and stage 1 through stage 4 chronic kidney disease, or unspecified chronic kidney disease I13.0 and BMI 30.0-30.9,adult Z68.30 Assessments Encounter Date Diagnosis (ICD Code) Assessment Notes Treatment Notes Treatment Clinical Notes Section Notes 03/10/2025 Adult general medical examination (ICD-10 - Z00.00) Patient instructed to return to office Annually for Annual Wellness Visits to include annual screenings of Pain assessment, Functional Ability assessment, Cognitive Ability assessment, Fall Risk assessment, Depression screening and Bladder control screening. 03/10/2025 Type 2 diabetes mellitus with other circulatory complication (ICD-10 - E11.59) 03/10/2025 Hyperlipidemia associated with type 2 diabetes mellitus (ICD-10 - E11.69) 03/10/2025 Type 2 diabetes mellitus with diabetic chronic kidney disease (ICD-10 - E11.22) 03/10/2025 Essential hypertension (ICD-10 - I10) 03/10/2025 Type 2 diabetes mellitus without complication (ICD-10 - E11.9) Discussed adding SGLT2. Will await lab results 03/10/2025 Dyslipidemia (ICD-10 - E78.5) 03/10/2025 Chronic kidney disease, stage 3a (ICD-10 - N18.31) 03/10/2025 Coronary artery disease without angina pectoris, unspecified vessel or lesion type, unspecified whether enterprise or transplanted heart (ICD-10 - I25.10) 03/10/2025 GERD (gastroesophageal reflux disease) (ICD-10 - K21.9) 03/10/2025 Hypertensive heart and chronic kidney disease with heart failure and stage 1 through stage 4 chronic kidney disease, or unspecified chronic kidney disease (ICD-10 - I13.0) 03/10/2025 BMI 30.0-30.9,adult (ICD-10 - Z68.30) Plan Of Treatment Medication Medication Name Sig Start Date Stop Date Notes Simvastatin 80 MG 1 tab(s) orally once a day (at bedtime) hydroCHLOROthiazide 25 MG 1 tab(s) orally once a day Bisoprolol Fumarate 5 MG 1 tab(s) orally once a day glipiZIDE 5 MG 1 tablet 30 minutes before breakfast Orally Once a day metFORMIN HCl 1000 MG 1 tab(s) orally once daily Isosorbide Mononitrate ER 60 MG 1 tab(s) orally 2 times a day Losartan Potassium 25 MG 1 tab(s) orally once a day Aspirin Low Dose 81 MG 1 tab(s) orally once a day Effient 10 MG 1 tab(s) orally once a day Treatment Notes Assessment Notes Adult general medical examination Patien t instructed to return to office Annually for Annual Wellness Visits to include annual screenings of Pain assessment, Functional Ability assessment, Cognitive Ability assessment, Fall Risk assessment, Depression screening and Bladder control screening. Type 2 diabetes mellitus wit hout complication Discussed adding SGLT2. Will await lab results Referrals Referral Date Details 03/10/2025 03/10/2025, Refer to Dr. Thaddeus Minaya with [facility] Cardiology to establish care; hx of ASCVD, . Cardiology Next Appt Details Follow Up: 6 Months, Reason: Provider Name:Wyatt Roberts, 03/11/2026 09:30:00 AM, [address] [facility] [address], [address], [place], [place], [id number], Progress Notes * Dougie CABALLERODOB: 7 (70 yo M)Acc No.[id number]:03/10/2025 Annual Wellness Visit Patient: Dougie FONTAINE Provider: Wyatt Claudio M.D. :1955 A ge:70 Y S ex:Male Date:03/10/2025 Address:[address] [place] [address], [id number] Pcp:Gibran Bob Subjective: * Chief Complaints: * 1 . 6 month checkup and an Annual Wellness Vist. 2. Due for diabetic eye exam. * HPI: H PI: Patient is here today for a scheduled 6 month check up?and a Medicare Annual Wellness Visit. Pt states he is doing good and denies any new concerns. Pt states he would like to discuss a referral to a different Maintenance Aide. Pt is fasting. C ardiology: He had a heart cath by Dr. Swanson in November because of chest pains. He was found to have a blockage of the small artery not amenable to intervention. E ndocrinology: He does not monitor his blood sugar at home. * ROS: D ERMATOLOGY: no R jordyn. n o H sushil. G ASTROENTEROLOGY: no N ausea. n o V omiting. n o D iarrhea.? O PTHALMOLOGY: Negative for d enies vision issues. U ROLOGY: no D ifficulty urinating. n [...] Bleeding Aug 2008, Heart Cath, Stent placement- [place] February 2016, Heart Cath, stents placement (3) November 2017. * Family History: F ather: 84 yrs, diagnosed with Heart Disease. M other: 72 yrs, diagnosed with Hypertension, Diabetes, Mental Illness, Heart Disease. C hilen: alive. S iblings: diagnosed with Cancer, Diabetes, Heart Disease. 1 brother(s) , 4 sister(s) . 1 son(s) - healthy. . Brother - , heart disease (53)- , \npancreas, liver, bone cancer (61). * Social History: C URRENT TOBACCO USE S moking Status: P atient does NOT smoke, F ormer Smoker:?No. 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 * Medications: T aking Furosemide 40 MG Tablet 0.25 tablet Orally Once a day , Taking Famotidine 20 MG Tablet 1 tablet at bedtime as needed Orally Once a day , Taking Ezetimibe 10 MG Tablet 1 tablet Orally Once a day , Taking Pantoprazole Sodium 40 MG Tablet Delayed Release 1 tab(s) orally once a day , Taking Accu-Chek Fe Plus 1 STRIP ONCE DAILY , Taking Effient 10 MG Tablet 1 [...] breakfast Orally Once a day , Taking Gabapentin 100 MG Capsule 1-3 capsule Orally At Bed Time , Not- Taking glipiZIDE-metFORMIN HCl 2.5-500 MG Tablet 2 tab(s) orally once daily (evening) , Not-Taking amLODIPine Besylate 5 MG Tablet 1 tab(s) orally once a day , Not- Taking Ranolazine ER 500 MG Tablet Extended Release 12 Hour 1.5 tabs orally once daily , Unknown Bisoprolol-hydroCHLOROthiazide 5-6.25 MG Tablet 1 tab(s) orally twice a day , Medication List reviewed and reconciled with the patient * Allergies: P enicillin, Shellfish-derived Products. Objective: * Vitals: W t: 222.8, Temp: 97.9, BP: 140/80, HR: 57, Nurse: MARLENE, Ht: 72, BMI:30.21. * Examination: C ardiology: General Appearance: p leasant, NAD. . C arotid upstroke: n ormal, no bruits. H eart sounds: R RR, normal S1, S2. M urmur, click , gallop:?none. L ungs: c lear, no rales or wheezes. A bdomen: p ositive BS, soft, nontender. E xtremities: T race ankle edema. . * Physical Examination: G ENERAL: Pain Assessment: P ain level: 5, on a scale of 0-10 (with 10 being extreme pain). F unctional Status Assessment: P atient response to question of how often physical health interferes with daily activities: Occasionally. Able to perform ADLs-including meal preparation, grocery shopping, housework, laundry, taking medications or handling finances. Cognitive Status: alert and oriented. Ambulation Status: Fully ambulatory. F all Risk Assessment: I ndependant in ambulation, adequate lighting in home. Patient has fallen or had trouble walking within the past 12 months. D epression Screening: D enies depressed mood or anxiety. Describes emotional health as: calm. B ladder Control Screening: D enies problems.? Assessment: * Assessment: 1. A dult general medical examination - Z00.00 (Primary) 2 . T ype 2 diabetes mellitus with other circulatory complication - E11.59 3 . H yperlipidemia associated with type 2 diabetes mellitus - E11.69 4 . T ype 2 diabetes mellitus with diabetic chronic kidney disease - E11.22 5 . E ssential hypertension - I10? 6. T ype 2 diabetes mellitus without complication - E11.9 7 . D yslipidemia - E78.5 8 . C hronic kidney disease, stage 3a - N18.31 9. C oronary artery disease without angina pectoris, unspecified vessel or lesion type, unspecified whether enterprise or transplanted heart - I25.10 1 0. G ERD (gastroesophageal reflux disease) - K21.9 1 1. H ypertensive heart and chronic kidney disease with heart failure and stage 1 through stage 4 chronic kidney disease, or unspecified chronic kidney disease - I13.0 1 2. B AL 30.0-30.9,adult - Z68.30 Plan: * Treatment: 2. T ype 2 diabetes mellitus with other circulatory complication L AB: P-Microalbumin/Creatinine, Random Urine Sample (Collection Date & Time - 03/10/2025 09:04 AM) n ormal Value Reference Range A lbumin/Creatinine Ratio, Urine 4 0-30 - ug /mg * C reatinine, Urine 187.1 - mg/dL * M icroalbumin, Urine, Random 0.8 - mg/dL * Wyatt Claudio 03/15/2025 09:50:46 PM EDT > See phone encounter ?LAB: Glycohemoglobin A1c (in house) (Collection Date & Time - 03/10/2025)? 6.5%* Value Reference Range g lycohemoglobin 6.5% 5 - 6.5 % * Meryl Flores 03/10/2025 01:44: 26 PM EDT > Wyatt Claudio 03/15/2025 09:50:46 PM EDT > See phone encounter 3.?Hyperlipidemia associated with type 2 diabetes mellitus?LAB: P-Lipid Panel (Collection Date & Time - 03/10/2025 09:04 AM)?LDL 40* Value Reference Range C holesterol / HDL Ratio 2.89 0.00-4.99 - Ratio * C holesterol 107 <200 - mg/dL * H DL Cholesterol 37 L >39 - mg/dL * L DL Cholesterol (Calculation) 40 <130 - mg/d L * L DL/HDL Ratio 1.1 <3.3 - Ratio * N on-HDL Cholesterol 70 <130 - mg/dL * T riglycerides 152 H <150 - mg/dL * Wyatt Claudio 03/15/2025 09:50:46 PM EDT > See phone encounter 4.?Essential hypertension? Continue Losartan Potassium Tablet, 25 MG, 1 tab(s), orally, once a day;?Continue Bisoprolol Fumarate Tablet, 5 MG, 1 tab(s), orally, once a day;?Continue hydroCHLOROthiazide Tablet, 25 MG,1 tab(s), orally, once a day.?LAB: P-Comprehensive Metabolic Panel (CMP) (Collection Date & Time - 03/10/2025 09:04 AM)?FBS 120* Value Reference Range A /G Ratio 2.1 1.1-2.5 - * A lbumin 4.6 3.5-5.3 - g/dL * A lkaline Phosphatase 63 40-129 - IU/L * A LT (SGPT) 15 <5-55 - IU/L * A ST (SGOT) 17 <5-46 - IU/L * B ilirubin, Total 0.5 <0.2-1.2 - mg/dL * B UN 17 8-23 - mg/dL * C alcium 9.2 8.6-10.4 - mg/dL * C hloride 106 97-108 - mmol/L * C O2 26 22-32 - mmol/L * C reatinine 1.25 0.70-1.30 - mg/dL * G lucose 120 H 65-99 - mg/dL * P otassium 4.9 3.5-5.3 - mmol/L * S odium 143 135-145 - mmol/L * P rotein 6.8 6.0-8.3 - g/dL * e GFR by Creatinine 63 >59 - mL/min/1.73m2 * Wyatt Claudio 03/15/2025 09:50:46 PM EDT > See phone encounter 5.?Type 2 diabetes mellitus without complication? Continue metFORMIN HCl Tablet, 1000 MG, 1 tab(s), orally, once daily;?Continue glipiZIDE Tablet, 5 MG, 1 tablet 30 minutes before breakfast, Orally, Once a day.?? Notes: Discussed adding SGLT2. Will await lab results??6.?Dyslipidemia? Continue Simvastatin Tablet, 80 MG, 1 tab(s), orally, once a day (at bedtime).?? 7.?Coronary artery disease without angina pectoris, unspecified vessel or lesion type, unspecified whether enterprise or transplanted heart? Continue Effient Tablet, 10 MG, 1 tab(s), orally, once a day;?Continue Aspirin Low Dose TabletDelayed Release, 81 MG, 1 tab(s), orally, once a day;?Continue Isosorbide Mononitrate ER Tablet Extended Release 24 Hour, 60 MG, 1 tab(s), orally, 2 times a day.? Referral To:. Cardiology??Cardiovascular Disease ?Reason:Refer toDr. Thaddeus Minaya with [facility]iology to establish care; hx of ASCVD * Procedure Codes: G 0439 ANNUAL WELLNESS VST; PPS SUBSQT VST, G2211 Complex [place], [address] GLYCATED HEMOGLOBIN TEST, Modifiers: QW , 1090F PRES/ABSN URINE INCON ASSESS, 3288F FALL RISK ASSESSMENT DOCD, 1170F FXNL STATUS ASSESSED, 1159F MED LIST DOCD IN RCRD, 1003F LEVEL OF ACTIVITY ASSESS, 1036F TOBACCO NON-USER, 3017F COLORECTAL CA SCREEN DOC REV, 3044F HG A1C LEVEL LT 7.0%, G8950 PREHTN/HTN BP DOC INDCD F/U DOC, G8753 MOST RECENT SYSTOLIC BP >= 140MM HG, G8754 MOST RECENT DIASTOLIC BP < 90MM HG, G8510 NEG SCR Depression PT NOT ELIG F/U/PLN DOC * Preventive Medicine: Counseling: E motional health: D iscussed ways to improve socialization. I njury prevention: F all prevention discussed. Discussed need for cane/walker. Potential trip hazards discussed. Immunizations: T etanus u p to date. P neumococcal u p to date. I nfluenza u p to date. Screening / Special Tests: C olonoscopy R ecent history:11/2023 Dr. Villanueva, benign polyps, repeat 1-2 years. P SA 1 11/10/2023, normal. D iabetic Retinal Eye Exam R ecent history:, recommended today. N ephrology History R ecent history:, GFR and urine M/A ordered today. * Follow Up: 6 Months * Images: Billing Information: * Visit Code: 81963 Office Visit, Est Pt., Level 3. Modifiers: 25 * Procedure Codes: G0439 ANNUAL WELLNESS VST; PPS SUBSQT VST. G2211 Complex e/[place]. [address] GLYCATED HEMOGLOBIN TEST. Modifiers: QW 1090F PRES/ABSN URINE INCON ASSESS. 3288F FALL RISK ASSESSMENT DOCD. 1170F FXNL STATUS ASSESSED. 1159F MED LIST DOCD IN RCRD. 1003F LEVEL OF ACTIVITY ASSESS. 1036F TOBACCO NON-USER. 3017F COLORECTAL CA SCREEN DOC REV. 3044F HG A1C LEVEL LT 7.0%. G8950 PREHTN/HTN BP DOC INDCD F/U DOC. G8753 MOST RECENT SYSTOLIC BP >= 140MM HG. G8754 MOST RECENT DIASTOLIC BP < 90MM HG. G8510 NEG SCR Depression PT NOT ELIG F/U/PLN DOC. * Electronic signature of Wyatt Claudio MD on 09/11/2025 at 07:19 AM EST Sign off status: Pending * Provider: Wyatt Claudio M.D. Date: 0 03/10/2025 Generated for Ruth Anni ng/Sarmadg/eTransmitting on: 1 11/12/2024 07:19 AM EST History and Physical Notes * HPI (History of Present Illness) Category Sub-Category Detail Notes Category Not es HPI Patient is here today for a sche duled 6 month check up and a Medicare Annual Wellness Visit. Pt states he is doing good and denies any new concerns. Pt states he would like to discuss a referral to a different Maintenance Aide. Pt is fasting Physical Examination Category Sub-Category Detail Notes Section Note s GENERAL Pain Assessment: Pain level: 5, on a scale of 0-10 (with 10 being extreme pain) Functional Status Assessment: Patient re sponse to question of how often physical health interferes with daily activities: Occasionally. Able to perform ADLs-including meal preparation, grocery shopping, housework, laundry, taking medications or handling finances.Cognitive Status: alert and oriented.Ambulation Status: Fully ambulatory Fall Risk Assessment: Independant in amb ulation, adequate lighting in home. Patient has fallen or had trouble walking within the past 12 months Depression Screening: Denies depressed m ood or anxiety. Describes emotional health as: calm Bladder Control Screening: Denies proble ms Examination Category Sub-Category Detail Notes Category Not es Cardiology Lungs: clear, no rales or wheezes HEENT: Heart sounds: RRR, normal S1, S2 Abdomen: positive BS, soft, n ontender Carotid upstroke: normal, no bruits Extremities: Trace ankle edema. Murmur, click , gallop: none General Appearance: pleasant, NAD. Consultation Request Notes Referral Date Referring Provider Referred Provider Not es 03/10/2025 Wyatt Claudio Cardiology, . Refer to Dr. Thaddeus Minaya with [facility] to establish care; hx of ASCVD
--- OUTSIDE RECORDS SUMMARY | 2025-07-13 08:30 | XMS_ITS ---
[facility] [address] [facility] [address] [place] [id number] Care Team Providers Care Butcher Scullion Name Role Phone Gibran Bob Primary Care Provider Filomena Garrido Unavailable [phone] Allergies Allergen (clinical drug ingredient) Drug/Non Drug Allergy documented on EMR Reaction Allergy Type Onset Date Status Penicillin Unknown Drug Allergy Active Shellfish (FN) Shellfish-derived Products Unknown Drug Allergy Active REASON FOR VISIT shingles Medications Medication SIG (Take, Route, Frequency, Duration) Notes Start Date End Date Status Bisoprolol-hydroCHLOROthiazi de 5-6.25 MG 1 tab(s) orally twice a day Active Gabapentin 100 MG 1-3 capsule Orally A t Bed Time 06/16/2025 Active glipiZIDE-metFORMIN HCl 2.5- 500 MG 2 tab(s) orally once daily (evening) Active Pantoprazole Sodium 40 MG 1 tab(s) orall y once a day Active Accu-Chek Fe Plus 1 STRIP ONCE DAILY 02/14/2021 Active Famotidine 20 MG 1 tablet at bedtime as needed Orally Once a day Active Ezetimibe 10 MG 1 tablet Orally Once a day; Duration: 30 day(s) Active Furosemide 40 MG 0.25 tablet Orally Once a day Active glipiZIDE 5 MG 1 tablet 30 minutes before breakfast Orally Once a day Active Simvastatin 80 MG 1 tab(s) orally once a day (at bedtime) Active metFORMIN HCl 1000 MG 1 tab(s) orally tw ice a day Active hydroCHLOROthiazide 25 MG 1 tab(s) orall y once a day Active Bisoprolol Fumarate 5 MG 1 tab(s) orally twice a day Active valACYclovir HCl 1 GM 1 tablet Orally 3 times a day; Duration: 7 days 07/13/2025 Active Isosorbide Mononitrate ER 60 MG 1 tab(s) orally 2 times a day Active Effient 10 MG 1 tab(s) orally once a day Active Losartan Potassium 25 MG 1 tab(s) orally once a day Active Vital Signs Blood pressure systolic 122 mm Hg 07/13/20 25 Blood pressure diastolic 70 mm Hg 025 Heart Rate 60 /min 07/13/2025 Height 72 in 07/13/2025 Weight 227.4 lbs 07/13/2025 BMI 30.84 kg/m2 07/13/2025 Encounters Encounter Location Date Provider Diagnosis [facility] [address] [facility] [address] [facility] [address] [place] [id number] 07/13/2025 Filomena Garrido Shingles B02. 9 Assessments Encounter Date Diagnosis (ICD Code) Assessment Notes Treatment Notes Treatment Clinical Notes Section Notes 07/13/2025 Shingles (ICD-10 - B02.9) Tylenol prn Plan Of Treatment Medication Medication Name Sig Start Date Stop Date Notes valACYclovir HCl 1 GM 1 tablet Orally 3 times a day; Duration: 7 days 07/13/2025 Treatment Notes Assessment Notes Shingles Tylenol prn Next Appt Details Follow Up: prn, Reason: Provider Name:Wyatt Roberts, 03/11/2026 09:30:00 AM, [address] [facility] [address] [facility], [address], [place], [id number], Progress Notes * Dougie CABALLERODOB: 7 (70 yo M)Acc No.[id number]:07/13/2025 Progress Notes Patient: Juan José TYRONEDougie Dewitt Provider: KRISTEL Baker :1955 A ge:70 Y S ex:Male Date:07/13/2025 Address:[address] [place], [place] [phone] Pcp:Gibran Bob Subjective: * Chief Complaints: * 1 . Shingles. * HPI: D ermatology: 70 year old male presents with c/o Shingles P t states he thinks he has shingles. Pt states his chest,right ride and back is hunting. Pt states he pain started Sunday and his places on his right side of chest came up Sunday. * ROS: D ERMATOLOGY: no R jordyn. n o H sushil. G ASTROENTEROLOGY: no N ausea. n o V omiting. n o D iarrhea.? U ROLOGY: no D ifficulty urinating. n [...] Bleeding Aug 2008, Heart Cath, Stent placement- [place] February 2016, Heart Cath, stents placement (3) [...] NOT smoke, F ormer Smoker:?No. 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 * Medications: T aking Effient 10 MG Tablet 1 tab(s) orally once a day , Taking Isosorbide Mononitrate ER 60 MG Tablet Extended Release 24 Hour 1 tab(s) orally 2 times a day , Taking Losartan Potassium 25 MG Tablet 1 tab(s) orally once a day , Taking Bisoprolol Fumarate 5 MG Tablet 1 tab(s) orally twice a day , Taking hydroCHLOROthiazide 25 MG Tablet 1 tab(s) orally once a day , Taking Simvastatin 80 MG Tablet 1 tab(s) orally once a day (at bedtime) , Taking metFORMIN HCl 1000 MG Tablet 1 tab(s) orally twice a day , Taking glipiZIDE 5 MG Tablet 1 tablet 30 minutes before breakfast Orally Once a day , Taking Furosemide 40 MG Tablet 0.25 tablet Orally [...] capsule Orally At Bed Time , Taking glipiZIDE-metFORMIN HCl 2.5-500 MG Tablet 2 tab(s) orally once daily (evening) , Taking Bisoprolol-hydroCHLOROthiazide 5-6.25 MG Tablet 1 tab(s) orally twice a day , Discontinued Aspirin Low Dose 81 MG Tablet Delayed Release 1 tab(s) orally once a day , Discontinued amLODIPine Besylate 5 MG Tablet 1 tab(s) orally once a day , Discontinued Ranolazine ER 500 MG Tablet Extended Release 12 Hour 1.5 tabs orally once daily , Medication List reviewed and reconciled with the patient * Allergies: P enicillin, Shellfish-derived Products. Objective: * Vitals: W t: 227.4, Temp: 98.0, BP: 122/70, HR: 60, Nurse: pe, Ht: 72, BMI:30.84. * Examination: G eneral Examination: General Appearance: N AD, appears healthy, alert, pleasant, well nourished and hydrated. H eart: R RR. L ungs: C TAB A&P. E xtremities:?papular cluster around right axilla and right upper chest. Assessment: * Assessment: 1. S mengles - B02.9 (Primary) Plan: * Treatment: * Procedure Codes: G 2211 Complex e/m visit add on, 1036F TOBACCO NON-USER, G8783 BP SCR PRFRM RCMDD DEFIND SCR INTVL, G8752 MOST RECENT SYSTOLIC BP < 140MM HG, G8754 MOST RECENT DIASTOLIC BP < 90MM HG, 3074F SYST BP LT 130 MM HG, 3078F DIAST BP < 80 MM HG * Follow Up: p rn * Images: Billing Information: * Visit Code: 67282 Office Visit, Est Pt., Level 3. * Procedure Codes: G2211 Complex e/m visit add on. 1036F TOBACCO NON-USER. G8783 BP SCR PRFRM RCMDD DEFIND SCR INTVL. G8752 MOST RECENT SYSTOLIC BP < 140MM HG. G8754 MOST RECENT DIASTOLIC BP < 90MM HG. 3074F SYST BP LT 130 MM HG. 3078F DIAST BP < 80 MM HG. * Electronic signature of Radha Garrido APRN on 09/11/2025 at 07:19 AM EST Sign off status: Pending * Provider: KRISTEL Baker Date: Generated for Iraj garcia/Ousmane/Ayaan on: 11/12/2024 07:19 AM EST History and Physical Notes * HPI (History of Present Illness) Category Sub-Category Detail Notes Category Not es Dermatology Shingles Pt states he thi nks he has shingles. Pt states his chest,right ride and back is hunting. Pt states he pain started Sunday and his places on his right side of chest came up Sunday Examination Category Sub-Category Detail Notes Category Not es General Examination Heart: RRR Lungs: CTAB A&P Extremities: papular cluster arou nd right axilla and right upper chest General Appearance: NAD, appears healthy , alert, pleasant, well nourished and hydrated
--- OUTSIDE RECORDS SUMMARY | 2025-07-29 11:30 | XMS_ITS | Encounter Summary ---
Author Organization [facility] Address [address] [place] [address] Care Team Providers Care Dental Amalgam Processor Name Role Phone Chago Claudio MD Primary Care Provider Reason for Visit * Reason Comments Coronary artery disease of [place] artery of [place] heart wi 3 mo f/u Encounter Details Date Type Department Care Team (Late st Contact Info) Description 07/29/2025 11:30 AM EST Office Visit [facility] [address] [facility] [address] [place] [address] Franco Minaya MD [address] [facility] [address] [place] [address] Coronary artery disease of [place] artery of [place] heart with stable angina pectoris (Primary Dx); Other chest pain; Dyspnea on exertion Social History Tobacco Use Types Packs/Day Years Used Date Smoking Tobacco: Never Passive Smoke Exposure: Past Smokeless Tobacco: Never Tobacco Cessation:Counseling Given: Not Answered Alcohol Use Standard Drinks/Week Comments Never 0 (1 standard drink = 0.6 oz pur e alcohol) Sex and Gender Information Value Date Recorded Sex Assigned at Not on file Legal Sex Male 8:28 AM EDT Gender Identity Not on file Sexual Orientation Not on file documented as of this encounter Last Filed Vital Signs Vital Sign Reading Time Taken Comments Blood Pressure 116/66 07/29/2025 11:52 AM EST Pulse 63 07/29/2025 11:52 AM EST Temperature - - Respiratory Rate - - Oxygen Saturation 96% 07/29/2025 11: 52 AM EST Inhaled Oxygen Concentration - - Weight 97.9 kg (215 lb 12.8 oz) 025 11:52 AM EST Height 182.9 cm (6') 07/29/2025 11:52 AM EST Body Mass Index 29.27 07/29/2025 11:52 AM EST documented in this encounter Progress Notes * Franco Minaya MD - 07/29/2025 11:30 AM EST [facility] Established Patient Office Visit Patient Name: Dougie Caballero : 1955 Care Team: Patient Care Team: Chago Claudio MD as PCP - General (Family Medicine) Franco Minaya MD as Director Talent Acquisition (Cardiology) Chief Complaint Patient presents with Coronary artery disease of re[place] artery of [place] heart wi 3 mo f/u Problem List Coronary artery disease - 5 stents 12/17/24 - [facility], Dr. Kiki Urbano - PCI of LAD, 1.5mm ramus with ostial 80-90% stenosis, 20% LCX, 20-30% RCA 12/07/17 - [facility], Dr. Kiki Urbano - PCI of LM-LCX, PCI LM-ostial LAD 03/15/16 - [facility], Dr. Kiki Urbano - 70-80% stenosis OM3 2015, 2018 x 2019 HTN DM II Subjective HPI: Dougie Caballero is a 70 y.o. male with a history of CAD who presents today for follow-up of CAD. Since his initial visit with me in March he has been doing well from a chest pain standpoint withno significant exertional chest pain at this time. After starting dapagliflozin he did notice increased urinary frequency and at times had been up every hour at night to pee. He did have endoscopy with reported stretching of his cricopharyngeus since his last visit. He alsowas diagnosed with right sided shingles which has been causing him significant discomfort. Review of Systems Respiratory: Positive for chest tightness. Negative for shortness of breath. Cardiovascular: Negative for chest pain and leg swelling. Gastrointestinal: Positive for GERD and indigestion. Current Outpatient Medications: bisoprolol (ZEBeta) 5 MG tablet, Take 1 tablet by mouth 2 (Two) Times a Day., Disp: , Rfl: ezetimibe (ZETIA) 10 MG tablet, Take 1 tablet by mouth Daily., Disp: , Rfl: famotidine (PEPCID) 20 MG tablet, Take 1 tablet by mouth Daily., Disp: , Rfl: furosemide (LASIX) 40 MG tablet, Take 10 mg by mouth Daily. (Patient taking differently: Take 0.5 tablets by mouth Daily.), Disp: , Rfl: gabapentin (NEURONTIN) 100 MG capsule, Take 1 capsule by mouth Every Night. Takes 1-3 tablets nightly, Disp: , Rfl: glipizide (GLUCOTROL XL) 5 MG ER tablet, Take 1 tablet by mouth Daily., Disp: , Rfl: hydroCHLOROthiazide 25 MG tablet, Take 1 tablet by mouth Daily., Disp: , Rfl: isosorbide mononitrate (IMDUR) 60 MG 24 hr tablet, Take 2 tablets by mouth Every Morning., Disp: , Rfl: losartan (COZAAR) 50 MG tablet, Take 0.5 tablets by mouth 2 (Two) Times a Day., Disp: , Rfl: metFORMIN (GLUCOPHAGE) 1000 MG tablet, Take 1 tablet by mouth 2 (Two) Times a Day With Meals., Disp: , Rfl: nitroglycerin (NITROSTAT) 0.4 MG SL tablet, 1 under the tongue as needed for angina, may repeat q5mins for up three doses, Disp: , Rfl: pantoprazole (PROTONIX) 40 MG EC tablet, Take 1 tablet by mouth Daily., Disp: , Rfl: prasugrel (EFFIENT) 10 MG tablet, Take 1 tablet by mouth Daily., Disp: , Rfl: simvastatin (ZOCOR) 80 MG tablet, Take 1 tablet by mouth Every Night., Disp: , Rfl: empagliflozin (Jardiance) 10 MG tablet tablet, Take 1 tablet by mouth Every Morning., Disp: 30 tablet, Rfl: 11 Allergies Allergen Reactions Penicillins Swelling Shellfish Protein-Containing Drug Products Nausea And Vomiting Valtrex [Valacyclovir] Nausea And Vomiting, Other (See Comments) and Dizziness Muscle and joint pain, dizziness, nausea and vomiting; pt struggled to walk Objective Vitals: 07/29/25 1152 BP: 116/66 BP Location: Right arm Patient Position: Sitting Cuff Size: Adult Pulse: 63 SpO2: 96% Weight: 97.9 kg (215 lb 12.8 oz) Height: 182.9 cm (72 ) Body mass index is 29.27 kg/m??. Gen: well developed, sitting up on exam table, comfortable appearing HEENT: MMM, sclerae anicteric, conjunctivae normal, no carotid bruits CV: regular rate, regular rhythm, no murmurs or rubs, normal S1, S2. 2+ radial and PT pulses Pulm: RA, normal work of breathing, no wheezes, rales, rhonchi Ext: normal bulk for age, normal tone, no dependent edema Neuro: alert, oriented, face symmetrical, moving all extremities well Psych: normal mood, appropriate affect Most recent PCP note, imaging tests, and labs reviewed. Labs: 03/10/25 - TC 107, HDL 37, LDL 40, triglycerides 152 - A1c 6.5% Procedures Assessment & Plan ICD-10-CM ICD-9-CM 1. Coronary artery disease of [place] artery of [place] heart with stable angina pectoris I25.118 414.01 413.9 2. Other chest pain R07.89 786.59 3. Dyspnea on exertion R06.09 786.09 Coronary artery disease Chest pain Dyspnea on exertion - Antianginal therapy: Bisoprolol, now BID, ISMN 120 mg daily - DAPT, simvastatin and ezetimibe, LDL at goal - Will resume SGLT2 inhibitor but try empagliflozin Hypertension - Controlled today, no changes Return in about 6 months (around 01/26/2026). Emerald Minaya MD 07/29/[address] [facility] Cardiology [address] [place] [phone] documented in this encounter Plan of Treatment Upcoming Encounters Date Type Department Care Team (Late st Contact Info) Description 07/21/2026 10:30 AM EDT Office Visit [facility] [address] [place] [phone] Franco Minaya MD [address] [place] [address] documented as of this encounter Visit Diagnoses Diagnosis Coronary artery disease of [place] artery of [place] heart with stable angina pectoris- Primary Other chest pain Dyspnea on exertion Other dyspnea and respiratory abnormality documented in this encounter Care Teams Dental Amalgam Processor Relationship Specialty Start Date End Date Chago Claudio MD [address] [facility] [address] [facility] [address] [facility] [address] PCP - General Family Medicine 04/17/25 documented as of this encounter
--- OUTSIDE RECORDS SUMMARY | 2025-09-10 05:15 | XMS_ITS ---
[facility] Address [address] [facility] [address] [id number] Care Team Providers Care Head Of Acquisitions Name Role Phone Gibran Bob Primary Care Provider Wyatt Claudio Unavailable [phone] Allergies Allergen (clinical drug ingredient) Drug/Non Drug Allergy documented on EMR Reaction Allergy Type Onset Date Status Penicillin Unknown Drug Allergy Active Shellfish (FN) Shellfish-derived Products Unknown Drug Allergy Active REASON FOR VISIT 6 months, Needs labs with PSA, diabetic eye exam, & flu vaccine Medications Medication SIG (Take, Route, Frequency, Duration) Notes Start Date End Date Status hydroCHLOROthiazide 25 MG 1 tab(s) orall y once a day Active Bisoprolol Fumarate 5 MG 1 tab(s) orally once a day Active Losartan Potassium 25 MG 1 tab(s) orally once a day Active glipiZIDE-metFORMIN HCl 2.5-500 MG 2 tab(s) orally once daily (evening) Not-Taking Bisoprolol-hydroCHLOROthiazi d e 5-6.25 MG 1 tab(s) orally twice a day Active Pantoprazole Sodium 40 MG 1 tab(s) orall y once a day Active Gabapentin 100 MG 1-3 capsule Orally At Bed Time 06/16/2025 Active Accu-Chek Fe Plus 1 STRIP ONCE DAILY 02/14/2021 Active Isosorbide Mononitrate ER 60 MG 1 tab(s) orally 2 times a day Active Aspirin Low Dose 81 MG 1 tab(s) orally once a day Active Ezetimibe 10 MG 1 tablet Orally Once a day; Duration: 30 day(s) Active Effient 10 MG 1 tab(s) orally once a day Active Famotidine 20 MG 1 tablet at bedtime as needed Orally Once a day Active Jardiance 10 MG 1 tablet Orally Once a day Active Furosemide 40 MG 0.5 tablet Orally Once a day Active metFORMIN HCl 1000 MG 1 tab(s) orally once daily Active Simvastatin 80 MG 1 tab(s) orally once a day (at bedtime) Active glipiZIDE 5 MG 1 tablet 30 minutes before breakfast Orally Once a day Active Immunizations Vaccine Route Administration Date Status Comme nts Fluzone High Dose (65yr and older) IM Intramuscular 09/10/2025 Administered Vital Signs Blood pressure systolic 126 mm Hg 09/10/20 25 Blood pressure diastolic 72 mm Hg 025 Heart Rate 65 /min 09/10/2025 Height 72 in 09/10/2025 Weight 220 lbs 09/10/2025 BMI 29.83 kg/m2 09/10/2025 Encounters Encounter Location Date Provider Diagnosis [facility] [address] [id number] 09/10/2025 Wyatt Claudio Type 2 diabetes stu itus with other circulatory complication E11.59 ; Hyperlipidemia associated with type 2 diabetes mellitus E11.69 ; Type 2 diabetes mellitus with diabetic chronic kidney disease E11.22 ; Essential hypertension I10 ; Dyslipidemia E78.5 ; Chronic kidney disease, stage 3a N18.31 ; Coronary artery disease without angina pectoris, unspecified vessel or lesion type, unspecified whether atka or transplanted heart I25.10 ; GERD (gastroesophageal reflux disease) K21.9 ; Hypertensive heart and chronic kidney disease with heart failure and stage 1 through stage 4 chronic kidney disease, or unspecified chronic kidney disease I13.0 and Encounter for immunization Z23 Assessments Encounter Date Diagnosis (ICD Code) Assessment Notes Treatment Notes Treatment Clinical Notes Section Notes 09/10/2025 Type 2 diabetes mellitus with other circulatory complication (ICD-10 - E11.59) 09/10/2025 Hyperlipidemia associated with type 2 diabetes mellitus (ICD-10 - E11.69) 09/10/2025 Type 2 diabetes mellitus with diabetic chronic kidney disease (ICD-10 - E11.22) 09/10/2025 Essential hypertension (ICD-10 - I10) 09/10/2025 Dyslipidemia (ICD-10 - E78.5) 09/10/2025 Chronic kidney disease, stage 3a (ICD-10 - N18.31) 09/10/2025 Coronary artery disease without angina pectoris, unspecified vessel or lesion type, unspecified whether atka or transplanted heart (ICD-10 - I25.10) 09/10/2025 GERD (gastroesophageal reflux disease) (ICD-10 - K21.9) 09/10/2025 Hypertensive heart and chronic kidney disease with heart failure and stage 1 through stage 4 chronic kidney disease, or unspecified chronic kidney disease (ICD-10 - I13.0) 09/10/2025 Encounter for immunization (ICD-10 - Z23) Plan Of Treatment Medication Medication Name Sig Start Date Stop Date Notes hydroCHLOROthiazide 25 MG 1 tab(s) orally once a day Bisoprolol Fumarate 5 MG 1 tab(s) orally once a day Losartan Potassium 25 MG 1 tab(s) orally once a day Isosorbide Mononitrate ER 60 MG 1 tab(s) orally 2 times a day Aspirin Low Dose 81 MG 1 tab(s) orally once a day Effient 10 MG 1 tab(s) orally once a day Jardiance 10 MG 1 tablet Orally Once a day metFORMIN HCl 1000 MG 1 tab(s) orally once daily Simvastatin 80 MG 1 tab(s) orally once a day (at bedtime) glipiZIDE 5 MG 1 tablet 30 minutes before breakfast Orally Once a day Pending Test Test Name Order Date Glycohemoglobin (HbA1C) 09/10/2025 PSA 09/10/2025 Complete Metabolic Profile 09/10/2025 lipid profile 09/10/2025 Next Appt Details Follow Up: 6 Months, Reason: Provider Name:Wyatt Roberts, 03/11/2026 09:30:00 AM, [address] [facility] [address] [facility], [address], [place], [phone], Progress Notes * Dougie CABALLERODOB: 7 (70 yo M)Acc No.[id number]:09/10/2025 Progress Notes Patient: Dougie FONTAINE Provider: Wyatt Claudio M.D. :1955 A ge:70 Y S ex:Male Date:09/10/2025 Address:[address] [place] [address], [id number] Pcp:Gibran Bob Subjective: * Chief Complaints: * 1 . 6 months. 2. Needs labs with PSA, diabetic eye exam, & flu vaccine. * HPI: C ardiology: He comes in for scheduled checkup. Interim history is reviewed. He reports that he has finally healed from his bout of shingles. 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 E ndocrinology: He does not check his blood sugar regularly. He does note increased urinary frequency with the addition of Jardiance. G astroenterology: Since his last visit, he underwent EGD and esophageal dilatation with Dr. Spears. * ROS: D ERMATOLOGY: no R jordyn. n o H sushil. G ASTROENTEROLOGY: no N ausea. n o V omiting. n o D iarrhea.? U ROLOGY: no D ifficulty urinating. n o B lood in urine. 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 Swanson, History of sleep apnea -failed CPAP. * Surgical History: F ractured Nose Repair Nov & Apr 2008, Colonoscopy x 3 removed pylps Aug 2008, Heart Cath, Stent placement- Dr. Swanson February, Colonoscopy/Dr. Smith/ normal 2012, Heart cath/ [facility]/ no intervention 04/2020, Colonoscopy/ [facility] 11/2023, EGD/ esophageal dilitation/ [facility] 2024. * Hospitalization/Major Diagno stic Procedure: C olonoscopy - Bleeding Aug 2008, Heart Cath, Stent placement- [place] February 2016, Heart Cath, stents placement (3) [...] NOT smoke, F ormer Smoker:?No. 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 * Medications: T aking Jardiance 10 MG Tablet 1 tablet Orally Once a day , Taking Effient 10 MG Tablet 1 [...] day , Taking Furosemide 40 MG Tablet 0.5 tablet Orally Once a day , Taking [...] capsule Orally At Bed Time , Taking Bisoprolol-hydroCHLOROthiazide 5-6.25 MG Tablet 1 tab(s) orally twice a day , Not-Taking glipiZIDE-metFORMIN HCl 2.5-500 MG Tablet 2 tab(s) orally once daily (evening) , Discontinued valACYclovir HCl 1 GM Tablet 1 tablet Orally 3 times a day , Medication List reviewed and reconciled with the patient * Allergies: P enicillin, Shellfish-derived Products. Objective: * Vitals: W t: 220, Temp: 98.1, BP: 126/72, HR: 65, Nurse: pe, Ht: 72, BMI:29.83. * Examination: C ardiology: General Appearance: p [...] E ssential hypertension - I10 5 . D yslipidemia - E78.5 6 . C hronic kidney disease, stage 3a - N18.31 7 . C oronary artery disease without angina pectoris, unspecified vessel or lesion type, unspecified whether atka or transplanted heart - I25.10 8 . G ERD (gastroesophageal reflux disease) - K21.9 9 .?Hypertensive heart and chronic kidney disease with heart failure and stage 1 through stage 4 chronic kidney disease, or unspecified chronic kidney disease - I13.0 1 0. E ncounter for immunization - Z23 Plan: * Treatment: 2. T ype 2 diabetes mellitus with diabetic chronic kidney disease Continue Jardiance Tablet, 10 MG, 1 tablet, Orally, Once a day. 3. E ssential hypertension Continue Losartan Potassium Tablet, 25 MG, 1 tab(s), orally, once a day; C ontinue Bisoprolol Fumarate Tablet, 5 MG, 1 tab(s), orally, once a day; C ontinue hydroCHLOROthiazide Tablet, 25 MG, 1 tab(s), orally, once a day. 4. D yslipidemia Continue Simvastatin Tablet, 80 MG, 1 tab(s), orally, once a day (at bedtime). 5. C oronary artery disease without angina pectoris, unspecified vessel or lesion type, unspecified whether atka or transplanted heart Continue Effient Tablet, 10 MG, 1 tab(s), orally, once a day; C ontinue Aspirin Low Dose Tablet Delayed Release, 81 MG, 1 tab(s), orally, once a day; C ontinue Isosorbide Mononitrate ER Tablet Extended Release 24 Hour, 60 MG, 1 tab(s), orally, 2 times a day. * Immunizations: Fluzone High Dose (65yr and older) : 0.5 mL (Route: Intramuscular) given by RADHA Whelan , Learning And Development Manager on Left Deltoid (Encounter for immunization) * Labs: * L ab: PSA L ab: lipid profile L ab: Complete Metabolic Profile L ab: Glycohemoglobin (HbA1C) * Procedure Codes: G 2211 Complex e/m visit add on, G8950 PREHTN/HTN BP DOC INDCD F/U DOC, G8752 MOST RECENT SYSTOLIC BP < 140MM HG, G8754 MOST RECENT DIASTOLIC BP < 90MM HG, 3074F SYST BP LT 130 MM HG, 3078F DIAST BP < 80 MM HG * Follow Up: 6 Months * Images: Billing Information: * Visit Code: 25233 Office Visit, Est Pt., Level 3. * Procedure Codes: G2211 Complex e/m visit add on. G8950 PREHTN/HTN BP DOC INDCD F/U DOC. G8752 MOST RECENT SYSTOLIC BP < 140MM HG. G8754 MOST RECENT DIASTOLIC BP < 90MM HG. 3074F SYST BP LT 130 MM HG. 3078F DIAST BP < 80 MM HG. * Electronic signature of Wyatt Claudio MD on 09/11/2025 at 07:20 AM EST Sign off status: Pending * Provider: Wyatt Claudio M.D. Date: 11/11/2024 Generated for Iraj garcia/Ousmane/Jessiitting on: 11/12/2024 07:20 AM EST History and Physical Notes * Examination Category Sub-Category Detail Notes Category Not es Cardiology Lungs: clear, no rales or wheezes HEENT: Heart sounds: RRR, normal S1, S2 Abdomen: positive BS, soft, n ontender Carotid upstroke: normal, no bruits Extremities: Trace ankle edema. Murmur, click , gallop: none General Appearance: pleasant, NAD.
--- OUTSIDE RECORDS SUMMARY | 2025-09-11 07:20 | XMS_ITS | Patient Health Record ---
[facility] [address] [place] [id number] Care Team Providers Care Biology Professor Name Role Phone Gibran Bob Primary Care Provider [phone] Waytt Claudio Unavailable [phone] Filomena Garrido Unavailable [phone] Allergies Allergen (clinical drug ingredient) Drug/Non Drug [...] 120 Performing Lab: Notes/Report: Test performed by [facility] [address] [place] [address] , [address], [place] [address] Maxx Koch MD, Network Field Engineer CLIA: [id number] Sodium 143 135-145 mmol/L Potassium 4.9 3.5-5.3 [...] 40 Performing Lab: Notes/Report: Test performed by [facility], [address] , [place] [address] Maxx Koch MD, Network Field Engineer CLIA: [id number] Cholesterol 107 <200 mg/dL Triglycerides 152 <150 [...] Interpretation:normal Performing Lab: Notes/Report: Test performed by [facility] [address] [place] [address] , [address], [place] [address] Maxx Koch MD, Network Field Engineer CLIA: [id number] Albumin/Creatinine Ratio, Urine 4 0-30 ug/m g Microalbumin, Urine, Random 0.8 Creatinine, Urine 187.1 Reason For Referral Reason Refer to Dr. Thaddeus Osorio with [facility] to establish care; hx of ASCVD Diagnosis 1 Coronary artery dise ase without angina pectoris, unspecified vessel or lesion type, unspecified whether [place] or transplanted heart (I25.10) Referral Organization [facility] Referring Provider First Name Wyatt Porter Referring Provider Last Name Shanon Referring Provider Speciality [facility] Referred Provider Cardiology, . Referred Provider Specialty Cardiovascul ar Disease General Notes Lourdes Gregory 2024 11:10:00 AM > faxed to Cardiology Referral Priority Routine Medications Medication SIG (Take, Route, Frequency, Duration) Notes Start Date End Date Status hydroCHLOROthiazide 25 MG 1 tab(s) orall y once a day Active Pantoprazole Sodium 40 MG 1 tab(s) orall y once a day Active Ezetimibe 10 MG 1 tablet Orally Once a day; Duration: 30 day(s) Active Gabapentin 100 MG 1-3 capsule Orally At Bed Time 06/16/2025 Active Accu-Chek Fe Plus 1 STRIP ONCE DAILY 02/14/2021 Active Famotidine 20 MG 1 tablet at bedtime as needed Orally Once a day Active Jardiance 10 MG 1 tablet Orally Once a day Active Furosemide 40 MG 0.5 tablet Orally Once a day Active glipiZIDE-metFORMIN HCl 2.5-500 MG 2 tab(s) orally once daily (evening) Not-Taking Bisoprolol-hydroCHLOROthiazi d e 5-6.25 MG 1 tab(s) orally twice a day Active Bisoprolol Fumarate 5 MG 1 tab(s) orally once a day Active Losartan Potassium 25 MG 1 tab(s) orally once a day Active Effient 10 MG 1 tab(s) orally once a day Active Isosorbide Mononitrate ER 60 MG 1 tab(s) orally 2 times a day Active Aspirin Low Dose 81 MG 1 tab(s) orally once a day Active metFORMIN HCl 1000 MG [...] (65yr and older) IM Intramuscular 09/09/2024 Administered Fluzone High Dose (65yr and older) IM Intramuscular 09/10/2025 Administered Flublok IM Intramuscular 08/15/2021 Administered COVID 19 Moderna Unknown 10/06/2020 Administered COVID 19 Moderna Unknown 11/03/2020 Administered Problems Problem Type SNOMED Code ICD Code Onset Dates Problem Status W/U Status Risk Notes Problem Gastroesophageal reflux disease (506142666) GERD (gastroesophageal reflux disease) (K21.9) Active confirmed Problem Neoplasm of back (789803098) 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) Active confirmed Problem Essential hypertension (95876274) Essential hypertension (I10) Active confirmed Problem Diabetic neuropathy (391008164) Diabetic neuropathy (E11.40) Active confirmed Problem Body mass index 30+ - obesity (087194108) BMI 30.0-30.9,adult (Z68.30) Active confirmed Problem Diabetic renal disease (656991878) Type 2 diabetes mellitus with diabetic chronic kidney disease (E11.22) Active confirmed Problem Hypertensive heart AND chronic kidney disease with congestive heart failure (01411551915692) Hypertensive heart and chronic kidney disease with heart failure and stage 1 through stage 4 chronic kidney disease, or unspecified chronic kidney disease (I13.0) Active confirmed Problem Hyperlipidemia due to type 2 diabetes mellitus (disorder) (455974831485466) Hyperlipidemia associated with type 2 diabetes mellitus (E11.69) Active confirmed Problem Type II diabetes mellitus without complication (353951964) Type 2 diabetes mellitus without complication (E11.9) Active confirmed Problem Body mass index 30.00 to 34.99 (449967622291639) BMI 31.0-31.9,adult (Z68.31) Active confirmed Problem Dyslipidemia (256184003) Dyslipidemia (E78.5) Active confirmed Problem Peripheral circulatory disorder associated with diabetes mellitus (439912287) Type 2 diabetes mellitus with other circulatory complication (E11.59) Active confirmed Problem Atherosclerotic heart disease of [place] coronary artery without angina pectoris (678056173108745) Coronary artery disease without angina pectoris, unspecified vessel or lesion type, unspecified whether [place] or transplanted heart (I25.10) Active confirmed Problem Chronic kidney disease stage 3A (disorder) (203171350) Chronic kidney disease, stage 3a (N18.31) Active confirmed Vital Signs Heart Rate 65 /min 09/10/2025 Blood pressure diastolic 72 mm Hg 09/10/2025 Height 72 in 09/10/2025 Blood pressure systolic 126 mm Hg 09/10/2025 Weight 220 lbs 09/10/2025 BMI 29.83 kg/m2 09/10/2025 Encounters Encounter Location Date Provider Diagnosis [facility] [address], [place] [id number] 03/10/2025 Wyatt [facility] Adult general medica l examination Z00.00 [...] unspecified vessel or lesion type, unspecified whether [place] or transplanted heart I25.10 ; GERD (gastroesophageal reflux disease) K21.9 ; Hypertensive heart and chronic kidney disease with heart failure and stage 1 through stage 4 chronic kidney disease, or unspecified chronic kidney disease I13.0 and BMI 30.0-30.9,adult Z68.30 [facility] [address] [facility] [address] [place], [place] [id number] 07/13/2025 Filomena Garrido Shingles B02.9 [facility] [address] [facility] [address] [place], [place] [id number] 09/10/2025 Wyatt Claudio Type 2 diabetes mellitus with other circulatory complication E11.59 ; Hyperlipidemia associated with type 2 diabetes mellitus E11.69 ; Type 2 diabetes mellitus with diabetic chronic kidney disease E11.22 ; Essential hypertension I10 ; Dyslipidemia E78.5 ; Chronic kidney disease, stage 3a N18.31 ; Coronary artery disease without angina pectoris, unspecified vessel or lesion type, unspecified whether [place] or transplanted heart I25.10 ; GERD (gastroesophageal reflux disease) K21.9 ; Hypertensive heart and chronic kidney disease with heart failure and stage 1 through stage 4 chronic kidney disease, or unspecified chronic kidney disease I13.0 and Encounter for immunization Z23 [facility] [address] [facility] [address] [place], [place] [id number] 07/27/2025 Gibran Wartrace [facility] [address] [facility] [address] [place], [place] [id number] 09/18/2024 Gibran Wartrace [facility] [address] [facility] [address] [place], [place] [id number] 12/02/2024 Wyatt Claudio Diabetic neuropathy E11.40 [facility] [address] [facility] [address] [place], [place] [id number] 03/15/2025 Gibran Wartrace [facility] [address] [facility] [address] [place], [place] [id number] 06/16/2025 R German Claudio Diabetic neuropathy E11.40 Assessments Encounter Date Diagnosis (ICD Code) Assessment Notes Treatment Notes Treatment Clinical Notes Section Notes 09/10/2025 Hyperlipidemia associated with type 2 diabetes mellitus (ICD-10 - E11.69) 09/10/2025 Type 2 diabetes mellitus with other circulatory complication (ICD-10 - E11.59) 07/13/2025 Shingles (ICD-10 - B02.9) Tylenol prn 06/16/2025 Diabetic neuropathy (ICD-10 - E11.40) 12/02/2024 Diabetic neuropathy (ICD-10 - E11.40) 03/10/2025 Adult general medical examination (ICD-10 - [...] E11.22) 09/10/2025 Essential hypertension (ICD-10 - I10) 03/10/2025 Type 2 diabetes mellitus with diabetic chronic kidney disease (ICD-10 - E11.22) 03/10/2025 Essential hypertension (ICD-10 - I10) 09/10/2025 Dyslipidemia (ICD-10 - E78.5) 09/10/2025 Chronic kidney disease, stage 3a (ICD-10 - N18.31) 03/10/2025 Type 2 diabetes mellitus without complication (ICD-10 - E11.9) Discussed adding SGLT2. Will await lab results 03/10/2025 Dyslipidemia (ICD-10 - E78.5) 09/10/2025 Coronary artery disease without angina pectoris, unspecified vessel or lesion type, unspecified whether [place] or transplanted heart (ICD-10 - I25.10) 09/10/2025 GERD (gastroesophageal reflux disease) (ICD-10 - K21.9) 03/10/2025 Chronic kidney disease, stage 3a (ICD-10 - N18.31) 03/10/2025 Coronary artery disease without angina pectoris, unspecified vessel or lesion type, unspecified whether [place] or transplanted heart (ICD-10 - I25.10) 09/10/2025 Hypertensive heart and chronic kidney disease with heart failure and stage 1 through stage 4 chronic kidney disease, or unspecified chronic kidney disease (ICD-10 - I13.0) 09/10/2025 Encounter for immunization (ICD-10 - Z23) 03/10/2025 GERD (gastroesophageal reflux disease) (ICD-10 - K21.9) 03/10/2025 Hypertensive heart and chronic kidney disease with heart failure and stage 1 through stage 4 chronic kidney disease, or unspecified chronic kidney disease (ICD-10 - I13.0) 03/10/2025 BMI 30.0-30.9,adult (ICD-10 - Z68.30) Plan Of Treatment Pending Test Test Name Order Date Glycohemoglobin (HbA1C) 09/10/2025 PSA 09/10/2025 Complete Metabolic Profile 09/10/2025 lipid profile 09/10/2025 Next Appt Details Provider Name:Wyatt German Galdamez et, 03/11/2026 09:30:00 AM, [address] [facility], [address], [place], [place], [id number], Insurance Providers Payer Name Payer Address Payer Phone Subscriber Number Group Number Insured Name Patient Relationship to Insured Coverage Start Date Coverage End Date MEDICARE PART B [address] [address] [place] [id number] Dougie Caballero Self - patient is the insured [employer] [address] [address] [place] [address] [phone] [id number] Dougie Caballero Self - patient is the insured Medical (General) History Medical History History ICD Code hypertension hyperlipidemia type 2 diabetes 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 Swanson History of sleep apnea -failed CPAP Surgical History Surgery Date(Month/Year) Fractured Nose Repair Nov & Apr 2008 Colonoscopy x 3 removed pylps Aug 2008 Heart Cath, Stent placement- Dr. Bang vo February Colonoscopy/Dr. Smith/ normal 2012 Heart cath/ Kiki/ no intervention 2019 Colonoscopy/ Rich 11/2023 EGD/ esophageal dilitation/ Spears 2024 Hospitalization History Reason Date(Month/Year) Heart Cath, stents placement (3) November 23 Heart Cath, Stent placement- Jai daugherty 2015 Colonoscopy - Bleeding Aug 2008
--- OUTSIDE RECORDS SUMMARY | 2025-09-11 07:21 | XMS_ITS | Clinical Summary ---
Author Organization [facility] Address [address] [place] [address] Care Team Providers Care Hull Grinder Name Role Phone Chago Claudio MD Primary Care Provider Allergies Active Allergy Reactions Criticality Noted Date Comments Penicillins Swelling 04/17/2025 Shellfish Protein-Containing Drug Products Nausea And Vomiting 04/17/2025 Valacyclovir Nausea And Vomiting,Other (See Comments),Dizziness 07/29/2025 Muscle and joint pain, dizziness, nausea and vomiting; pt struggled to walk Medications pantoprazole (PROTONIX) 40 MG EC tablet Take 1 tablet by mouth Daily. Active prasugrel (EFFIENT) 10 MG tablet Take 1 tablet by mouth Daily. Active losartan (COZAAR) 50 MG tablet Take 0.5 tablets by mouth 2 (Two) Times a Day. Active gabapentin (NEURONTIN) 100 MG capsule Take 1 capsule by mouth Every Night. Takes 1-3 tablets nightly Active bisoprolol (ZEBeta) 5 MG tablet Take 1 tablet by mouth 2 (Two) Times a Day. Active ezetimibe (ZETIA) 10 MG tablet Take 1 tablet by mouth Daily. Active metFORMIN (GLUCOPHAGE) 1000 MG tablet Take 1 tablet by mouth 2 (Two) Times a Day With Meals. Active furosemide (LASIX) 40 MG tablet Take 10 mg by mouth Daily. Active hydroCHLOROthiaz migue 25 MG tablet Take 1 tablet by mouth Daily. Active famotidine (PEPCID) 20 MG tablet Take 1 tablet by mouth Daily. Active simvastatin (ZOCOR) 80 MG tablet Take 1 tablet by mouth Every Night. Active nitroglycerin (NITROSTAT) 0.4 MG SL tablet 1 under the tongue as needed for angina, may repeat q5mins for up three doses 04/17/2025 Active isosorbide mononitrate (IMDUR) 60 MG 24 hr tablet Take 2 tablets by mouth Every Morning. 04/17/2025 Active glipizide (GLUCOTROL XL) 5 MG ER tablet Take 1 tablet by mouth Daily. Active empagliflozin (Jardiance) 10 MG tablet tablet Take 1 tablet by mouth Every Morning. 30 tablet 11 07/29/2025 Active Encounters Date Type Department Care Team Description 07/29/2025 11:30 AM EST Office Visit [facility] [address] [facility] [address] [place] [address] Franco Minaya MD Coronary artery disease of burns [place] artery of burns [place] heart with stable angina pectoris (Primary Dx); Other chest pain; Dyspnea on exertion 07/29/2025 Travel from Last 3 Months Family History Medical History Relation Name Comments Heart disease Brother Heart disease Father Heart attack Mother Kidney failure Mother Cancer Sister 1 Cancer Sister 2 Relation Name Status Comments Brother Father Mother Sister 1 Sister 2 Sister 3 Alive Sister 4 Alive Social History Tobacco Use Types Packs/Day Years [...] Mass Index 29.27 07/29/2025 11:52 AM EST Plan of Treatment Upcoming Encounters Date Type Department Care Team (Late st Contact Info) Description 07/21/2026 10:30 AM EDT Office Visit [facility] [address] [place] [id number] Franco Minaya MD [address] [place] [address] Health Maintenance Due Date Last Done Comments DIABETIC EYE EXAM 1967 DIABETIC FOOT EXAM 1967 URINE MICROALBUMIN-CREATININ E RATIO (uACR) 1967 COLOGUARD 2002 COLON CANCER SCREENING 5 YEA R SIGMOIDOSCOPY 2002 CT COLONOGRAPHY 2002 FECAL OCCULT BLOOD TEST 2002 FIT Testing (1 year) 2002 ZOSTER VACCINE (1 of 2) 2007 COVID-19 Vaccine (3 - Modern a risk series) 12/01/2020 11/03/2020, 10/06/2020 ANNUAL WELLNESS VISIT 04/16/2025 HEMOGLOBIN A1C 04/16/2025 HEPATITIS C SCREENING 04/16/2025 INFLUENZA VACCINE 04/24/2025 08/15/2021, , 08/19/2019, Additional history exists TDAP/TD VACCINES (2 - Td or Tdap) 02/14/2027 017 COLONOSCOPY 12/03/2033 12/04/2023 COLORECTAL CANCER SCREENING 12/03/2033 Pneumococcal Vaccine 50+ Completed 023, 08/10/2022, 02/14/2017 Procedures Procedure Name Priority Date/Time Associated Diagnosis Comments SCANNED - COLONOSCOPY 12/04/2023 from Last 3 Months or Most Recently Relevant to Health Maintenance Results * Colonoscopy, Scan (12/04/2023) Franco Minaya MD CHART REVIEW TABS Final Re sult from Last 3 Months or Most Recently Relevant to Health Maintenance Insurance MEDICARE A & B [place] [employer] Care Teams Hull Grinder Relationship Specialty Start Date End Date Chago Claudio MD formerly [facility]0 [facility] [address] [facility] [address] [place] [address] PCP - General Family Medicine 04/17/25
--- OUTSIDE RECORDS SUMMARY | 2025-09-11 07:21 | XMS_ITS | Clinical Summary ---
Author Organization [facility] Address [address] [place] [address] Care Team Providers Care Automobile Leasing Supervisor Name Role Phone Unavailable Primary Care Provider [...] 2002 [facility]-Zoster Vaccines (1 of 2) 2007 [facility]SM-LUGKA-61 Vaccine (3 - 2024- season) 2025 11/03/2020, 10/06/2020 [facility]-Influenza Vaccine (#1) 05/25/202508/15, 08/17/2020, 08/19/2019 [facility]-DTaP,Tdap,and Td Vaccine s (2 - Td or Tdap) 02/14/2027 02/14/2017 [facility]-RSV Vaccine: 60+ Years o r (1 - 1-dose 75+ series) 02/05/2032 [facility]-Pneumococcal Vaccine: 50 + Years Completed 08/10/2022, 02/14/2017 HPV Vaccines (No Doses Required) Completed [facility]-HIB Vaccines Aged Out No longer e [...]
--- OUTSIDE RECORDS SUMMARY | 2025-09-11 07:21 | XMS_ITS | Encounter Summary ---
Author Organization [facility] Address [address] [place] [address] Care Team Providers Care Software Developer Intern Name Role Phone Chago Claudio MD Primary Care Provider Encounter Details Date Type Department Care Team (Latest Contact Info) Description 07/29/2025 Travel Social History Tobacco Use Types Packs/Day Years Used Date Smoking Tobacco: Never Passive Smoke Exposure: Past Smokeless Tobacco: Never Alcohol Use Standard Drinks/Week Comments Never 0 (1 standard drink = 0.6 oz pur e alcohol) Sex and Gender Information Value Date Recorded Sex Assigned at Not on file Legal Sex Male 8:28 AM EDT Gender Identity Not on file Sexual Orientation Not on file documented as of this encounter Plan of Treatment Upcoming Encounters Date Type Department Care Team (Late st Contact Info) Description 07/21/2026 10:30 AM EDT Office Visit [facility] [address] [facility] [address] [place] [address] Franco Minaya MD [address] [facility] [address] [place] [address] documented as of this encounter Visit Diagnoses Not on filedocumented in this encounter Care Teams Software Developer Intern Relationship Specialty Start Date End Date Chago Claudio MD [address] [place] [address] [facility] [id number] PCP - General Family Medicine 04/17/25 documented as of this encounter
[2025-09-11 07:55] LABS: Albumin Level 4.7 g/dl (3.5-5.0); Chloride 101 mmol/L (98-107)
[2025-09-11 07:56] LABS: Potassium 4.9 mmoL/L (3.5-5.1); Sodium 140 mmol/L (136-145)
[2025-09-11 07:58] LABS: Alanine Aminotransferase 21 U/L (12-78); Anion Gap 15.9 mEq/L (5-15); Aspartate Amino Transferase 22 U/L (17-59); Blood Urea Nitrogen 34 mg/dl (9-20); Carbon Dioxide 28 mmol/L (22.0-30.0); Creatinine,Serum 1.90 mg/dl (0.66-1.25); Estimated Glomerular Filt Rate 35 ml/min (>60); GFR (African American) 43 ML/MIN (>60)
[2025-09-11 07:59] LABS: Albumin/Globulin Ratio 2.0 (1.1-1.8); Alkaline Phosphatase 60 U/L (38-126); Bilirubin,Total 0.7 mg/dl (0.2-1.3); Calcium 9.3 mg/dl (8.4-10.2); Cholesterol 92 mg/dl (140-200); Globulin 2.3 g/dL (1.3-3.2); Glucose 157 mg/dl (74-100); HDL Cholesterol 35 mg/dl (40-60); Total Protein,Serum 7.0 g/dl (6.3-8.2); Triglycerides 166 mg/dl (30-150)
[2025-09-11 10:44] LABS: Hemoglobin A1C 6.8 % (4.0-6.0)
== END 2025-09-11 23:59 | disposition home or self-care (01) ==
LOC: LAB 07:18
PROVIDERS: PCP Family Medicine; Visit Provider Family Medicine
DX: E78.5 Hyperlipidemia, unspecified (principal); E11.59 Type 2 diabetes mellitus with other circulatory complications; Z12.5 Encounter for screening for malignant neoplasm of prostate
CPT/HCPCS: 36415; 80053; 80061; 83036; G0103